=== PATIENT | female | born 1940 | race Caucasian/White ===

== ENCOUNTER 2018-05-23 09:33 | Emergency (ER) | payer OTHER ==
--- OUTSIDE RECORDS SUMMARY | 2018-05-23 09:35 | XMS REPORT ---
:1940 Author Organization [facility] Address [address] [place] [address] Dr. Roblero. [address] [place] [id number] Care Team Providers Name Role Phone Unavailable Unavailable Unavailable Problems This patient has no known problems. Allergies, Adverse Reactions, Alerts This patient has no known allergies or adverse reactions. Medications This patient has no known medications.
[2018-05-23 10:06] LABS: Absolute Lymphocytes (CBC) 1.7 K/uL (0.7-4.9); Absolute Monocytes 0.4 K/uL (0.1-1.3); Absolute Neutrophil 2.7 K/uL (1.8-8.0); Basophils % 1.3 % (0-1.3); Hematocrit 41.6 % (36.0-45.0); Lymphocytes % 33.6 % (15.3-44.8); MPV 8.9 fL (7.6-11.3); Monocytes % 7.5 % (3.3-12.3)
[2018-05-23 10:29] LABS: BUN Blood Urea Nitrogen 31 mg/dL (7-18); Bicarbonate 29 mmol/L (21-32); Glucose Level 141 mg/dL (74-106); Magnesium 2.3 mg/dL (1.8-2.4); Potassium 4.1 mmol/L (3.5-5.1); Sodium Level 143 mmol/L (136-145); Troponin (Emerg Dept Use Only) < 0.02 ng/mL (0.0-0.045)
--- NOTE | 2018-05-23 10:42 | ER ---
Nurse's Notes [facility] Name: Ana Paula Nichols Age: 78 yrs Sex: Female : 1940 Arrival Date: 05/23/2018 Time: 09:34 Bed 8 Private MD: Diagnosis: Syncope and collapse-Vasovagal attack Presentation: 05/23 09:34 Presenting complaint: EMS states: NEAR-SYNCOPE WHILE USING THE BATHROOM. Transition of bp care: patient was not received from another setting of care. Onset of symptoms is unknown. Risk Assessment: Do you want to hurt yourself or someone else? Patient reports no desire to harm self or others. Initial Sepsis Screen: Does the patient meet any 2 criteria? No. Patient's initial sepsis screen is negative. Does the patient have a suspected source of infection? No. Patient's initial sepsis screen is negative. Care prior to arrival: IV initiated. 22 GA, in the left forearm. 09:34 Method Of Arrival: EMS: [facility] bp 09:34 Acuity: ANDRY 3 bp Triage Assessment: 09:50 General: Appears in no apparent distress. comfortable, Behavior is calm, cooperative, bp appropriate for age. Pain: Denies pain. Historical: - Allergies: 09:50 Tetanus Vaccines \T\ Toxoid; bp 09:50 Digoxin; bp 09:50 Percodan; bp 09:50 Tape; bp - Home Meds: 09:50 Toprol XL 50 mg Oral Tb24 1 tab once daily [Active]; Lasix 40 mg Oral tab 1 tab 2 times bp per day [Active]; Protonix 40 mg Oral grps 1 packet once daily [Active]; gabapentin 300 mg oral cap 2 caps 3 times per day [Active]; levothyroxine 88 mcg tab 1 tab once daily [Active]; allopurinol 300 mg Oral tab 1 tab once daily [Active]; simvastatin 20 mg Oral tab 1 tab once daily [Active]; hydrocodone-acetaminophen 7.5-325 mg Oral tab [Active]; - PMHx: 09:50 High Cholesterol; Hypertension; Thyroid problem; COPD; CHF; bp - Immunization history:: Adult Immunizations up to date. - Social history:: Smoking status: Patient/guardian denies using tobacco. - Ebola Screening: : Patient negative for fever greater than or equal to 101.5 degrees Fahrenheit, and additional compatible Ebola Virus Disease symptoms Patient denies exposure to infectious person Patient denies travel to an Ebola-affected area in the 21 days before illness onset No symptoms or risks identified at this time. Screenin:35 Abuse screen: Denies threats or abuse. Denies injuries from another. Nutritional bp screening: No deficits noted. Tuberculosis screening: No symptoms or risk factors identified. Fall Risk None identified. Assessment: 09:35 General: Appears in no apparent distress. comfortable, Behavior is cooperative, bp appropriate for age, anxious. Pain: Denies pain. Neuro: Level of Consciousness is awake, alert, obeys commands, Oriented to person, place, time, situation, Appropriate for age Reports a syncopal episode. Cardiovascular: Rhythm is sinus rhythm. Respiratory: Airway is patent Respiratory effort is even, unlabored, Respiratory pattern is regular, symmetrical. GI: No signs and/or symptoms were reported involving the gastrointestinal system. : No signs and/or symptoms were reported regarding the genitourinary system. EENT: No deficits noted. Derm: No deficits noted. Musculoskeletal: Circulation, motion, and sensation intact. Range of motion: intact in all extremities. 10:39 Reassessment: ALL CURRENT ORDERS COMPLETED, VS STABLE, IVF INFUSING. bp 10:57 Reassessment: D/C ON HOLD FOR IVF COMPLETION. bp 11:36 Reassessment: PT D/C HOME VIA W/C WITH FAMILY, DX WITH VASO-VAGAL SYNCOPE. bp Vital Signs: 09:35 BP 129 / 64; Pulse 67; Resp 18; Temp 98.5; Pulse Ox 100% on R/A; Weight 71.67 kg; bp Height 5 ft. (152.40 cm); 10:22 BP 126 / 64 Supine; Pulse 64; jb1 10:22 BP 117 / 63 Sitting; Pulse 70; jb1 10:22 BP 123 / 67 Standing; Pulse 71; jb1 10:30 BP 113 / 54; Pulse 62; Resp 16; Pulse Ox 100% ; bp 11:30 BP 126 / 47; Pulse 57; Resp 16; Pulse Ox 100% ; bp 09:35 Body Mass Index 30.86 (71.67 kg, 152.40 cm) bp ED Course: 09:34 Patient arrived in ED. bp 09:35 Arm band placed on. bp 09:35 Patient has correct armband on for positive identification. Bed in low position. Call bp light in reach. Side rails up X2. Adult w/ patient. 09:39 Triage completed. bp 09:40 Carlos Camara PA is PHCP. jr8 09:40 Eyal Moody MD is Attending Physician. jr8 09:45 Initial lab(s) drawn, by me, sent to lab. jb1 10:22 EKG done, by ED staff, reviewed by Carlos MONACO. jb1 10:38 Yandel Ruby, RN is Primary Nurse. bp 11:37 No provider procedures requiring assistance completed. IV discontinued, intact, bp bleeding controlled, No redness/swelling at site. Pressure dressing applied. Administered Medications: 10:05 Drug: NS 0.9% 500 ml Route: IV; Rate: bolus; Site: left forearm; bp 11:10 Follow up: IV Status: Completed infusion bp Outcome: 10:42 Discharge ordered by . jr8 11:37 Discharged to home via wheelchair, with family. bp 11:37 Condition: stable 11:37 Discharge instructions given to patient, family, Instructed on discharge instructions, follow up and referral plans. Demonstrated understanding of instructions, follow-up care, medications. 11:39 Patient left the ED. bp Signatures: Jose Antonio Ivy jb1 Carlos Camara PA PA jr8 Yandel Ruby, RN RN bp Corrections: (The following items were deleted from the chart) 10:21 10:21 Initial lab(s) drawn, by me, jb1 jb1
--- NOTE | 2018-05-23 10:42 | EDPHYS ---
Physician Documentation [facility] Name: Ana Paula Nichols Age: 78 yrs Sex: Female : 1940 Arrival Date: 05/23/2018 Time: 09:34 Bed 8 Private MD: ED Physician Eyal Moody HPI: 05/23 10:23 This 78 yrs old Female presents to ER via EMS with complaints of Near Syncope.jr8 10:23 Onset: The symptoms/episode began/occurred acutely, today. Duration: This was a single jr8 episode. Context: occurred at home. Associated injury: The patient did not suffer any apparent associated injury. Associated signs and symptoms: Pertinent positives: dizziness, weakness, pallor. Current symptoms: Currently, the patient is not experiencing any symptoms, the patient feels back to baseline, no decreased level of consciousness, no confusion, no dysphasia, no headache, no paralysis, no visual changes. The patient has not experienced similar symptoms in the past. Patient stated that she had to use the restroom. Stated that she had to strain hard to initiate bowel movement. Right after relieving bowels started to feel very weak, light headed, nauseated, and sweaty. [place] as if she was going to pass out. EMS was called and found patient to be bradycardic and hypotensive on seen. Fluids given. Now upon arrival feels back to normal. Asymptomatic at this time . Historical: - Allergies: 09:50 Tetanus Vaccines \T\ Toxoid; bp 09:50 Digoxin; bp 09:50 Percodan; bp 09:50 Tape; bp - Home Meds: 09:50 Toprol XL 50 mg Oral Tb24 1 tab once daily [Active]; Lasix 40 mg Oral tab 1 tab 2 times bp per day [Active]; Protonix 40 mg Oral grps 1 packet once daily [Active]; gabapentin 300 mg oral cap 2 caps 3 times per day [Active]; levothyroxine 88 mcg tab 1 tab once daily [Active]; allopurinol 300 mg Oral tab 1 tab once daily [Active]; simvastatin 20 mg Oral tab 1 tab once daily [Active]; hydrocodone-acetaminophen 7.5-325 mg Oral tab [Active]; - PMHx: 09:50 High Cholesterol; Hypertension; Thyroid problem; COPD; CHF; bp - Immunization history:: Adult Immunizations up to date. - Social history:: Smoking status: Patient/guardian denies using tobacco. - Ebola Screening: : Patient negative for fever greater than or equal to 101.5 degrees Fahrenheit, and additional compatible Ebola Virus Disease symptoms Patient denies exposure to infectious person Patient denies travel to an Ebola-affected area in the 21 days before illness onset No symptoms or risks identified at this time. ROS: 10:23 Eyes: Negative for injury, pain, redness, and discharge, ENT: Negative for injury, jr8 pain, and discharge, Neck: Negative for injury, pain, and swelling, Cardiovascular: Negative for chest pain, palpitations, and edema, Respiratory: Negative for shortness of breath, cough, wheezing, and pleuritic chest pain, Back: Negative for injury and pain, MS/Extremity: Negative for injury and deformity. 10:23 Abdomen/GI: Positive for nausea, Negative for abdominal pain, vomiting, diarrhea, abdominal distension, hematemesis, black/tarry stool, rectal pain, rectal bleeding, bowel incontinence, flatulence. 10:23 Skin: Positive for diaphoresis. 10:23 Neuro: Positive for dizziness, near syncope, weakness, Negative for altered mental status, loss of consciousness, seizure activity, syncope. Exam: 10:23 Eyes: Pupils equal round and reactive to light, extra-ocular motions intact. Lids and jr8 lashes normal. Conjunctiva and sclera are non-icteric and not injected. Cornea within normal limits. Periorbital areas with no swelling, redness, or edema. ENT: Nares patent. No nasal discharge, no septal abnormalities noted. Tympanic membranes are normal and external auditory canals are clear. Oropharynx with no redness, swelling, or masses, exudates, or evidence of obstruction, uvula midline. Mucous membranes moist. Neck: Trachea midline, no thyromegaly or masses palpated, and no cervical lymphadenopathy. Supple, full range of motion without nuchal rigidity, or vertebral point tenderness. No Meningismus. Cardiovascular: Regular rate and rhythm with a normal S1 and S2. No gallops, murmurs, or rubs. Normal PMI, no JVD. No pulse deficits. Respiratory: Lungs have equal breath sounds bilaterally, clear to auscultation and percussion. No rales, rhonchi or wheezes noted. No increased work of breathing, no retractions or nasal flaring. Abdomen/GI: Soft, non-tender, with normal bowel sounds. No distension or tympany. No guarding or rebound. No evidence of tenderness throughout. Back: No spinal tenderness. No costovertebral tenderness. Full range of motion. Skin: Warm, dry with normal turgor. Normal color with no rashes, no lesions, and no evidence of cellulitis. MS/ Extremity: Pulses equal, no cyanosis. Neurovascular intact. Full, normal range of motion. Neuro: Awake and alert, GCS 15, oriented to person, place, time, and situation. Cranial nerves II-XII grossly intact. Motor strength 5/5 in all extremities. Sensory grossly intact. Cerebellar exam normal. Normal gait. Vital Signs: 09:35 BP 129 / 64; Pulse 67; Resp 18; Temp 98.5; Pulse Ox 100% on R/A; Weight 71.67 kg; bp Height 5 ft. (152.40 cm); 10:22 BP 126 / 64 Supine; Pulse 64; jb1 10:22 BP 117 / 63 Sitting; Pulse 70; jb1 10:22 BP 123 / 67 Standing; Pulse 71; jb1 10:30 BP 113 / 54; Pulse 62; Resp 16; Pulse Ox 100% ; bp 11:30 BP 126 / 47; Pulse 57; Resp 16; Pulse Ox 100% ; bp 09:35 Body Mass Index 30.86 (71.67 kg, 152.40 cm) bp MDM: 09:40 Patient medically screened. jr8 10:40 Differential Diagnosis: cardiac arrhythmia, cerebrovascular accident, drug effect, GI jr8 bleed, idiopathic syncope, seizure, transient ischemic attack, vasovagal episode. Data reviewed: vital signs, nurses notes, lab test result(s), EKG, and as a result, I will discharge patient. Data interpreted: Pulse oximetry: on room air is 100 %. Interpretation: normal. Counseling: I had a detailed discussion with the patient and/or guardian regarding: the historical points, exam findings, and any diagnostic results supporting the discharge/admit diagnosis, lab results, the need for outpatient follow up, a family practitioner, to return to the emergency department if symptoms worsen or persist or if there are any questions or concerns that arise at home. 05/23 09:44 Order name: Basic Metabolic Panel; Complete Time: 10:40 jr8 05/23 09:44 Order name: CBC with Diff; Complete Time: 10:16 05/23 09:44 Order name: Magnesium; Complete Time: 10:40 05/23 09:44 Order name: Troponin (emerg Dept Use Only); Complete Time: 10:40 05/23 10:16 Order name: Urine Dipstick--Ancillary (enter results); Complete Time: 11:13 ag 05/23 09:44 Order name: EKG; Complete Time: 09:44 05/23 09:44 Order name: Cardiac monitoring; Complete Time: 10:03 05/23 09:44 Order name: EKG - Nurse/Tech; Complete Time: 10:03 05/23 09:44 Order name: IV Saline Lock; Complete Time: 10:03 05/23 09:44 Order name: Labs collected and sent; Complete Time: 10:03 05/23 09:44 Order name: O2 Per Protocol; Complete Time: 10:03 05/23 09:44 Order name: O2 Sat Monitoring; Complete Time: 10:03 05/23 09:44 Order name: Orthostatics; Complete Time: 10:20 jr Administered Medications: 10:05 Drug: NS 0.9% 500 ml Route: IV; Rate: bolus; Site: left forearm; bp 11:10 Follow up: IV Status: Completed infusion bp Disposition: 05/24 07:04 Co-signature as Attending Physician, Eyal Moody MD I agree with the assessment and hilary plan of care. Disposition: 05/23/18 10:42 Discharged to Home. Impression: Syncope and collapse - Vasovagal attack. - Condition is Stable. - Discharge Instructions: Near-Syncope, Syncope, Vasovagal Syncope, Adult. - Medication Reconciliation Form, Thank You Letter, Antibiotic Education, Prescription Opioid Use form. - Follow up: Private Physician; When: 2 - 3 days; Reason: Recheck today's complaints, Continuance of care, Re-evaluation by your physician. - Problem is new. - Symptoms are resolved. Signatures: Dispatcher [employer] Eyal Cook MD MD cha Roszak, Josh, PA PA jr8 Yandel Ruby RN RN bp Corrections: (The following items were deleted from the chart) 05/23 11:39 10:42 05/23/2018 10:42 Discharged to Home. Impression: Syncope and collapse - Vasovagal bp attack. Condition is Stable. Forms are Medication Reconciliation Form, Thank You Letter, Antibiotic Education, Prescription Opioid Use. Follow up: Private Physician; When: 2 - 3 days; Reason: Recheck today's complaints, Continuance of care, Re-evaluation by your physician. Problem is new. Symptoms are resolved. jr8
[2018-05-23 11:11] LABS: Urine Blood NEGATIVE (NEG); Urine Glucose NEGATIVE (NEG); Urine Protein NEGATIVE (NEG)
[2018-05-23 11:43] VITALS: TEMP 98.5; O2SAT 100
[2018-05-23 11:47] VITALS: BP 126/47
--- NOTE | 2018-05-24 06:26 | EKG ---
Test Date: 2018-05-23 Test Time: 10:01:37 Sliver Lap Tender: JESICA MEASUREMENT RESULTS: Intervals: Rate: 56 NE: 224 QRSD: 88 QT: 426 QTc: 411 [place]: P: 33 NE: 224 QRS: 33 T: 59 INTERPRETIVE STATEMENTS: Sinus bradycardia with 1st degree AV block Otherwise normal ECG Compared to ECG 12/16/2014 06:07:12 First degree AV block now present Sinus rhythm no longer present Sinus arrhythmia no longer present Electronically Signed On 05-24-18 06:19:41 LANDSCAPE DRAFTER by Jesus Dee
== END 2018-05-23 11:39 | disposition home or self-care (01) ==
LOC: ER 09:33
DX: R55 Syncope and collapse (principal); I44.0 Atrioventricular block, first degree; E78.00 Pure hypercholesterolemia, unspecified; E03.9 Hypothyroidism, unspecified; J44.9 Chronic obstructive pulmonary disease, unspecified; I11.0 Hypertensive heart disease with heart failure; I50.9 Heart failure, unspecified; Z79.899 Other long term (current) drug therapy
CPT/HCPCS: 36415; 80048; 81003; 83735; 84484; 85025; 93005; 96360; 99284

== ENCOUNTER 2023-06-15 18:48 | Inpatient (IN) | payer OTHER ==
--- OUTSIDE RECORDS SUMMARY | 2023-06-15 19:01 | XMS REPORT | Continuity of Care Document ---
Author Name Unknown Address [address] [facility] [address] [place] [address] [facility] thconnect Address [address] [facility] [address] [place] [address] Care Team Providers Care Director Of Strategic Sales Name Role Phone GARGLENARD Primary Care Physician Unavail able Radiology Attending Clinician Unavailable RADIOLOGY Attending Clinician Unavailable Doctor Unassigned, [place] Attending Clinician U navailable ANKUSH Attending Clinician Unavailab le Rikki Steele Attending Clinician [phone] JOCELINE EDWARDS Admitting Clinician Unavailable GENNARO BIRD Admitting Clinician Unavail able ANKUSH Admitting Clinician Unavailab le Payers Payer Name Policy Type Policy Number Effective Date Expirati on Date Source [employer]ET[employer] INDEMNITY [id number] 2000 00:00:00 [place]: [id number] 1982 00:00:00 [employer]ET[employer] [id number] 1091-01-01 00:00:00 Problems Condition Name Condition Details Condition Category Status Onset Date Resolution Date Last Treatment Date Treating Clinician Comments Source Acquired hypothyroi dism Acquired Hypothyroi dism Problem Active 11-09 00:00: 00 [facility] Mixed hyperlipid emia Mixed Hyperlipid emia Problem Active 11-09 00:00: 00 [facility] Chronic gouty arthritis Chronic Gouty Arthritis Problem Active 11-09 00:00: 00 [facility] Seizure disorder Seizure Disorder Problem Active 11-09 00:00: 00 [facility] Allergic rhinitis Allergic Rhinitis Problem Active 11-09 00:00: 00 [facility] Gastroesop hageal reflux disease without esophagiti s Gastroesop hageal Reflux Disease without Esophagiti s Problem Active 11-09 00:00: 00 [facility] Postmenopa usal osteoporos is Postmenopa usal Osteoporos is Problem Active 11-09 00:00: 00 [facility] Vertigo Vertigo Problem Active 10-13 00:00: 00 [facility] Familial combined hyperlipid emia Familial Combined Hyperlipid emia Problem Active [facility] Gouty arthropath y Gouty Arthropath y Problem Active [facility] 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 Problem Active [facility] Legal blindness [facility] Legal Blindness [facility] Problem Active [facility] Bradycardi a Bradycardi a Problem Active [facility] Seasonal allergic rhinitis Seasonal Allergic Rhinitis Problem Active [facility] Chronic obstructiv e lung disease Chronic Obstructiv e Lung Disease Problem Active [facility] 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 Problem Active [facility] 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 Problem Active [facility] Neurogenic bladder Neurogenic Bladder Problem Active [facility] Onychia of finger Onychia of Finger Problem Active [facility] Onychia of toe Onychia of Toe Problem Active [facility] Osteoarthr itis of multiple joints Osteoarthr itis of Multiple Joints Problem Active [facility] Prolapsed lumbar interverte bral disc Prolapsed Lumbar Interverte bral Disc Problem Active [facility] Tachycardi a Tachycardi a Problem Active [facility] Strain of back muscle Strain of Back Muscle Problem Active [facility] History of gastrointe stinal disease History of Gastrointe stinal Disease Problem Active [facility] Pain of right shoulder joint Pain of Right Shoulder Joint Problem Active [facility] Screening status Screening Status Problem Active [facility] Allergies, Adverse Reactions, Alerts Allergy Name Allergy Type Status Severity Reaction(s) Onset Date Inactive Date Treating Clinician Comments Source DIGITALI S LEAF DRUG INGREDI Active Unknown-Cmnt 2017-05 00:00: 00 [facility] LATEX DRUG INGREDI Active Rash 2017-05 00:00: 00 [facility] OXYCODON E DRUG INGREDI Active Unknown-Cmnt 2017-05 00:00: 00 [facility] OXYCODON E HCL DRUG INGREDI Active Unknown-Cmnt 2017-05 00:00: 00 [facility] OXYCODON E TEREPHTH ALATE DRUG INGREDI Active Unknown-Cmnt 2017-05 00:00: 00 [facility] TETANUS TOXOID ADSORBED DRUG Active Unknown-Cmnt 2017-05 00:00: 00 [facility] TETANUS TOXOID FLUID DRUG Active Unknown-Cmnt 2017-05 00:00: 00 [facility] Digitali s [place] Propensi ty to adverse reaction s Active Unknown - See comments 2017-05 00:00: 00 [facility] Latex Propensi ty to adverse reaction s Active Rash 2017-05 00:00: 00 [facility] Oxycodon e Propensi ty to adverse reaction s Active Unknown - See comments 2017-05 00:00: 00 [facility] Oxycodon e Hcl Propensi ty to adverse reaction s Active Unknown - See comments 2017-05 00:00: 00 [facility] Oxycodon e Terephth alate Propensi ty to adverse reaction s Active Unknown - See comments 2017-05 00:00: 00 [facility] Tetanus Toxoid Adsorbed Propensi ty to adverse reaction s Active Unknown - See comments 2017-05 00:00: 00 [facility] Tetanus Toxoid Fluid Propensi ty to adverse reaction s Active Unknown - See comments 2017-05 00:00: 00 [facility] Aspirin Allergy to substanc e Active [facility] Digitali s [place] Allergy to substanc e Active [facility] Oxycodon e Allergy to substanc e Active [facility] Tetanus Toxoid, Adsorbed Allergy to substanc e Active [facility] Social History Social Habit Start Date Stop Date Quantity Comments Source Exposure to SARS-CoV-2 (event) 2022-01-12 00:00:00 2022-01-22 11:51:00 Not sure [facility] Alcohol intake 2018-04-16 00:00:00 2018-04-16 00:00:00 Current non-drinker of alcohol (finding) [facility] Sex Assigned At 1940 00:00:00 1940 00:00:00 [facility] Smoking Status Start Date Stop Date Source Never Smoker [facility] Medications Ordered Medication Name Filled Medication Name Start Date Stop Date Current Medication? Ordering Clinician Indication Dosage Frequency Signature (SIG) Comments Components Source ipratropium 0.02 % nebulizer solution 2017-05 20:51: 32 Yes .5mg Inhale 0.5 mg. [facility] % cream 2017-05 20:51: 32 Yes Apply to area(s) daily. [facility] ipratropium 0.02 % nebulizer solution 2017-05 20:51: 32 Yes .5mg Inhale 0.5 mg. [facility] ketoconazol e 2 % cream 2017-05 20:51: 32 Yes Apply to area(s) daily. [facility] ipratropium 0.02 % nebulizer solution 2017-05 20:51: 32 Yes .5mg Inhale 0.5 mg. [facility] ketoconazol e 2 % cream 2017-05 20:51: 32 Yes Apply to area(s) daily. [facility] ipratropium 0.02 % nebulizer solution 2017-05 20:51: 32 Yes .5mg Inhale 0.5 mg. [facility] ketoconazol e 2 % cream 2017-05 20:51: 32 Yes Apply to area(s) daily. [facility] fluticasone 50 mcg/actuati on nasal spray 2017-05 20:51: 31 Yes Use in each nostril daily. [facility] budesonide 0.5 mg/2 mL nebulizer solution 2017-05 20:51: 31 Yes .5mg Inhale 0.5 mg daily. [facility] albuterol 2.5 mg /3 mL (0.083 %) nebulizer solution 2017-05 20:51: 31 Yes 2.5mg Inhale 2.5 mg every 4 (four) hours as needed for Wheezing or Shortness of Breath. [facility] fluticasone 50 mcg/actuati on nasal spray 2017-05 20:51: 31 Yes Use in each nostril daily. [facility] budesonide 0.5 mg/2 mL nebulizer solution 2017-05 20:51: 31 Yes .5mg Inhale 0.5 mg daily. [facility] albuterol 2.5 mg /3 mL (0.083 %) nebulizer solution 2017-05 20:51: 31 Yes 2.5mg Inhale 2.5 mg every 4 (four) hours as needed for Wheezing or Shortness of Breath. [facility] fluticasone 50 mcg/actuati on nasal spray 2017-05 20:51: 31 Yes Use in each nostril daily. [facility] budesonide 0.5 mg/2 mL nebulizer solution 2017-05 20:51: 31 Yes .5mg Inhale 0.5 mg daily. [facility] albuterol 2.5 mg /3 mL (0.083 %) nebulizer solution 2017-05 20:51: 31 Yes 2.5mg Inhale 2.5 mg every 4 (four) hours as needed for Wheezing or Shortness of Breath. [facility] fluticasone 50 mcg/actuati on nasal spray 2017-05 20:51: 31 Yes Use in each nostril daily. [facility] budesonide 0.5 mg/2 mL nebulizer solution 2017-05 20:51: 31 Yes .5mg Inhale 0.5 mg daily. [facility] albuterol 2.5 mg /3 mL (0.083 %) nebulizer solution 2017-05 20:51: 31 Yes 2.5mg Inhale 2.5 mg every 4 (four) hours as needed for Wheezing or Shortness of Breath. [facility] ubidecareno ne (COQ-10 ORAL) 2017-05 20:48: 44 Yes Take by mouth. [facility] aspirin (ADULT LOW DOSE ASPIRIN) 81 mg EC tablet 2017-05 20:48: 44 Yes 162mg Take 162 mg by mouth daily. [facility] albuterol sulfate 90 mcg/actuati on AePB 2017-05 20:48: 44 Yes Inhale. [facility] ubidecareno ne (COQ-10 ORAL) 2017-05 20:48: 44 Yes Take by mouth. [facility] aspirin (ADULT LOW DOSE ASPIRIN) 81 mg EC tablet 2017-05 20:48: 44 Yes 162mg Take 162 mg by mouth daily. [facility] albuterol sulfate 90 mcg/actuati on AePB 2017-05 20:48: 44 Yes Inhale. [facility] ubidecareno ne (COQ-10 ORAL) 2017-05 20:48: 44 Yes Take by mouth. [facility] aspirin (ADULT LOW DOSE ASPIRIN) 81 mg EC tablet 2017-05 20:48: 44 Yes 162mg Take 162 mg by mouth daily. [facility] albuterol sulfate 90 mcg/actuati on AePB 2017-05 20:48: 44 Yes Inhale. [facility] ubidecareno ne (COQ-10 ORAL) 2017-05 20:48: 44 Yes Take by mouth. [facility] aspirin (ADULT LOW DOSE ASPIRIN) 81 mg EC tablet 2017-05 20:48: 44 Yes 162mg Take 162 mg by mouth daily. [facility] albuterol sulfate 90 mcg/actuati on AePB 2017-05 20:48: 44 Yes Inhale. [facility] ipratropium 0.02 % nebulizer solution 2017-05 14:51: 32 Yes .5mg Inhale 0.5 mg. [facility] ketoconazol e 2 % cream 2017-05 14:51: 32 Yes Apply to area(s) daily. [facility] ipratropium 0.02 % nebulizer solution 2017-05 14:51: 32 Yes .5mg Inhale 0.5 mg. [facility] ketoconazol e 2 % cream 2017-05 14:51: 32 Yes Apply to area(s) daily. [facility] ipratropium 0.02 % nebulizer solution 2017-05 14:51: 32 Yes .5mg Inhale 0.5 mg. [facility] ketoconazol e 2 % cream 2017-05 14:51: 32 Yes Apply to area(s) daily. [facility] ipratropium 0.02 % nebulizer solution 2017-05 14:51: 32 Yes .5mg Inhale 0.5 mg. [facility] ketoconazol e 2 % cream 2017-05 14:51: 32 Yes Apply to area(s) daily. [facility] ipratropium 0.02 % nebulizer solution 2017-05 14:51: 32 Yes .5mg Inhale 0.5 mg. [facility] ketoconazol e 2 % cream 2017-05 14:51: 32 Yes Apply to area(s) daily. [facility] ipratropium 0.02 % nebulizer solution 2017-05 14:51: 32 Yes .5mg Inhale 0.5 mg. [facility] ketoconazol e 2 % cream 2017-05 14:51: 32 Yes Apply to area(s) daily. [facility] ipratropium 0.02 % nebulizer solution 2017-05 14:51: 32 Yes .5mg Inhale 0.5 mg. [facility] ketoconazol e 2 % cream 2017-05 14:51: 32 Yes Apply to area(s) daily. [facility] ipratropium 0.02 % nebulizer solution 2017-05 14:51: 32 Yes .5mg Inhale 0.5 mg. [facility] ketoconazol e 2 % cream 2017-05 14:51: 32 Yes Apply to area(s) daily. [facility] fluticasone 50 mcg/actuati on nasal spray 2017-05 14:51: 31 Yes Use in each nostril daily. [facility] budesonide 0.5 mg/2 mL nebulizer solution 2017-05 14:51: 31 Yes .5mg Inhale 0.5 mg daily. [facility] albuterol 2.5 mg /3 mL (0.083 %) nebulizer solution 2017-05 14:51: 31 Yes 2.5mg Inhale 2.5 mg every 4 (four) hours as needed for Wheezing or Shortness of Breath. [facility] fluticasone 50 mcg/actuati on nasal spray 2017-05 14:51: 31 Yes Use in each nostril daily. [facility] budesonide 0.5 mg/2 mL nebulizer solution 2017-05 14:51: 31 Yes .5mg Inhale 0.5 mg daily. [facility] albuterol 2.5 mg /3 mL (0.083 %) nebulizer solution 2017-05 14:51: 31 Yes 2.5mg Inhale 2.5 mg every 4 (four) hours as needed for Wheezing or Shortness of Breath. [facility] fluticasone 50 mcg/actuati on nasal spray 2017-05 14:51: 31 Yes Use in each nostril daily. [facility] budesonide 0.5 mg/2 mL nebulizer solution 2017-05 14:51: 31 Yes .5mg Inhale 0.5 mg daily. [facility] albuterol 2.5 mg /3 mL (0.083 %) nebulizer solution 2017-05 14:51: 31 Yes 2.5mg Inhale 2.5 mg every 4 (four) hours as needed for Wheezing or Shortness of Breath. [facility] fluticasone 50 mcg/actuati on nasal spray 2017-05 14:51: 31 Yes Use in each nostril daily. [facility] budesonide 0.5 mg/2 mL nebulizer solution 2017-05 14:51: 31 Yes .5mg Inhale 0.5 mg daily. [facility] albuterol 2.5 mg /3 mL (0.083 %) nebulizer solution 2017-05 14:51: 31 Yes 2.5mg Inhale 2.5 mg every 4 (four) hours as needed for Wheezing or Shortness of Breath. [facility] fluticasone 50 mcg/actuati on nasal spray 2017-05 14:51: 31 Yes Use in each nostril daily. [facility] budesonide 0.5 mg/2 mL nebulizer solution 2017-05 14:51: 31 Yes .5mg Inhale 0.5 mg daily. [facility] albuterol 2.5 mg /3 mL (0.083 %) nebulizer solution 2017-05 14:51: 31 Yes 2.5mg Inhale 2.5 mg every 4 (four) hours as needed for Wheezing or Shortness of Breath. [facility] fluticasone 50 mcg/actuati on nasal spray 2017-05 14:51: 31 Yes Use in each nostril daily. [facility] budesonide 0.5 mg/2 mL nebulizer solution 2017-05 14:51: 31 Yes .5mg Inhale 0.5 mg daily. [facility] albuterol 2.5 mg /3 mL (0.083 %) nebulizer solution 2017-05 14:51: 31 Yes 2.5mg Inhale 2.5 mg every 4 (four) hours as needed for Wheezing or Shortness of Breath. [facility] fluticasone 50 mcg/actuati on nasal spray 2017-05 14:51: 31 Yes Use in each nostril daily. [facility] budesonide 0.5 mg/2 mL nebulizer solution 2017-05 14:51: 31 Yes .5mg Inhale 0.5 mg daily. [facility] albuterol 2.5 mg /3 mL (0.083 %) nebulizer solution 2017-05 14:51: 31 Yes 2.5mg Inhale 2.5 mg every 4 (four) hours as needed for Wheezing or Shortness of Breath. [facility] fluticasone 50 mcg/actuati on nasal spray 2017-05 14:51: 31 Yes Use in each nostril daily. [facility] budesonide 0.5 mg/2 mL nebulizer solution 2017-05 14:51: 31 Yes .5mg Inhale 0.5 mg daily. [facility] albuterol 2.5 mg /3 mL (0.083 %) nebulizer solution 2017-05 14:51: 31 Yes 2.5mg Inhale 2.5 mg every 4 (four) hours as needed for Wheezing or Shortness of Breath. [facility] ubidecareno ne (COQ-10 ORAL) 2017-05 14:48: 44 Yes Take by mouth. [facility] aspirin (ADULT LOW DOSE ASPIRIN) 81 mg EC tablet 2017-05 14:48: 44 Yes 162mg Take 162 mg by mouth daily. [facility] albuterol sulfate 90 mcg/actuati on AePB 2017-05 14:48: 44 Yes Inhale. [facility] ubidecareno ne (COQ-10 ORAL) 2017-05 14:48: 44 Yes Take by mouth. [facility] aspirin (ADULT LOW DOSE ASPIRIN) 81 mg EC tablet 2017-05 14:48: 44 Yes 162mg Take 162 mg by mouth daily. [facility] albuterol sulfate 90 mcg/actuati on AePB 2017-05 14:48: 44 Yes Inhale. [facility] ubidecareno ne (COQ-10 ORAL) 2017-05 14:48: 44 Yes Take by mouth. [facility] aspirin (ADULT LOW DOSE ASPIRIN) 81 mg EC tablet 2017-05 14:48: 44 Yes 162mg Take 162 mg by mouth daily. [facility] albuterol sulfate 90 mcg/actuati on AePB 2017-05 14:48: 44 Yes Inhale. [facility] ubidecareno ne (COQ-10 ORAL) 2017-05 14:48: 44 Yes Take by mouth. [facility] aspirin (ADULT LOW DOSE ASPIRIN) 81 mg EC tablet 2017-05 14:48: 44 Yes 162mg Take 162 mg by mouth daily. [facility] albuterol sulfate 90 mcg/actuati on AePB 2017-05 14:48: 44 Yes Inhale. [facility] ubidecareno ne (COQ-10 ORAL) 2017-05 14:48: 44 Yes Take by mouth. [facility] aspirin (ADULT LOW DOSE ASPIRIN) 81 mg EC tablet 2017-05 14:48: 44 Yes 162mg Take 162 mg by mouth daily. [facility] albuterol sulfate 90 mcg/actuati on AePB 2017-05 14:48: 44 Yes Inhale. [facility] ubidecareno ne (COQ-10 ORAL) 2017-05 14:48: 44 Yes Take by mouth. [facility] aspirin (ADULT LOW DOSE ASPIRIN) 81 mg EC tablet 2017-05 14:48: 44 Yes 162mg Take 162 mg by mouth daily. [facility] albuterol sulfate 90 mcg/actuati on AePB 2017-05 14:48: 44 Yes Inhale. [facility] ubidecareno ne (COQ-10 ORAL) 2017-05 14:48: 44 Yes Take by mouth. [facility] aspirin (ADULT LOW DOSE ASPIRIN) 81 mg EC tablet 2017-05 14:48: 44 Yes 162mg Take 162 mg by mouth daily. [facility] albuterol sulfate 90 mcg/actuati on AePB 2017-05 14:48: 44 Yes Inhale. [facility] ubidecareno ne (COQ-10 ORAL) 2017-05 14:48: 44 Yes Take by mouth. [facility] aspirin (ADULT LOW DOSE ASPIRIN) 81 mg EC tablet 2017-05 14:48: 44 Yes 162mg Take 162 mg by mouth daily. [facility] albuterol sulfate 90 mcg/actuati on AePB 2017-05 14:48: 44 Yes Inhale. [facility] levothyroxi ne 88 mcg tablet 2017-05 00:00: 00 Yes [facility] levothyroxi ne 88 mcg tablet 2017-05 00:00: 00 Yes [facility] levothyroxi ne 88 mcg tablet 2017-05 00:00: 00 Yes [facility] levothyroxi ne 88 mcg tablet 2017-05 00:00: 00 Yes [facility] levothyroxi ne 88 mcg tablet 2017-05 00:00: 00 Yes [facility] levothyroxi ne 88 mcg tablet 2017-05 00:00: 00 Yes [facility] levothyroxi ne 88 mcg tablet 2017-05 00:00: 00 Yes [facility] levothyroxi ne 88 mcg tablet 2017-05 00:00: 00 Yes [facility] levothyroxi ne 88 mcg tablet 2017-05 00:00: 00 Yes [facility] levothyroxi ne 88 mcg tablet 2017-05 00:00: 00 Yes [facility] levothyroxi ne 88 mcg tablet 2017-05 00:00: 00 Yes [facility] levothyroxi ne 88 mcg tablet 2017-05 00:00: 00 Yes [facility] allopurinol 300 mg tablet 2017-05 00:00: 00 Yes [facility] allopurinol 300 mg tablet 2017-05 00:00: 00 Yes [facility] furosemide 40 mg tablet 2017-05 00:00: 00 Yes [facility] HYDROcodone -acetaminop hen 7.5-325 mg per tablet 2017-05 00:00: 00 Yes [facility] metoprolol succinate XL 50 mg 24 hr tablet 2017-05 00:00: 00 Yes [facility] pantoprazol e 40 mg EC tablet 2017-05 00:00: 00 Yes [facility] KCL 20 mEq tablet 2017-05 00:00: 00 Yes [facility] simvastatin 20 mg tablet 2017-05 00:00: 00 Yes [facility] furosemide 40 mg tablet 2017-05 00:00: 00 Yes [facility] allopurinol 300 mg tablet 2017-05 00:00: 00 Yes [facility] furosemide 40 mg tablet 2017-05 00:00: 00 Yes [facility] HYDROcodone -acetaminop hen 7.5-325 mg per tablet 2017-05 00:00: 00 Yes [facility] metoprolol succinate XL 50 mg 24 hr tablet 2017-05 00:00: 00 Yes [facility] HYDROcodone -acetaminop hen 7.5-325 mg per tablet 2017-05 00:00: 00 Yes [facility] pantoprazol e 40 mg EC tablet 2017-05 00:00: 00 Yes [facility] KCL 20 mEq tablet 2017-05 00:00: 00 Yes [facility] simvastatin 20 mg tablet 2017-05 00:00: 00 Yes [facility] allopurinol 300 mg tablet 2017-05 00:00: 00 Yes [facility] metoprolol succinate XL 50 mg 24 hr tablet 2017-05 00:00: 00 Yes [facility] furosemide 40 mg tablet 2017-05 00:00: 00 Yes [facility] HYDROcodone -acetaminop hen 7.5-325 mg per tablet 2017-05 00:00: 00 Yes [facility] metoprolol succinate XL 50 mg 24 hr tablet 2017-05 00:00: 00 Yes [facility] pantoprazol e 40 mg EC tablet 2017-05 00:00: 00 Yes [facility] KCL 20 mEq tablet 2017-05 00:00: 00 Yes [facility] [facility] simvastatin 20 mg tablet 2017-05 00:00: 00 Yes [facility] pantoprazol e 40 mg EC tablet 2017-05 00:00: 00 Yes [facility] KCL 20 mEq tablet 2017-05 00:00: 00 Yes [facility] allopurinol 300 mg tablet 2017-05 00:00: 00 Yes [facility] furosemide 40 mg tablet 2017-05 00:00: 00 Yes [facility] HYDROcodone -acetaminop hen 7.5-325 mg per tablet 2017-05 00:00: 00 Yes [facility] metoprolol succinate XL 50 mg 24 hr tablet 2017-05 00:00: 00 Yes [facility] pantoprazol e 40 mg EC tablet 2017-05 00:00: 00 Yes [facility] KCL 20 mEq tablet 2017-05 00:00: 00 Yes [facility] simvastatin 20 mg tablet 2017-05 00:00: 00 Yes [facility] simvastatin 20 mg tablet 2017-05 00:00: 00 Yes [facility] allopurinol 300 mg tablet 2017-05 00:00: 00 Yes [facility] furosemide 40 mg tablet 2017-05 00:00: 00 Yes [facility] HYDROcodone -acetaminop hen 7.5-325 mg per tablet 2017-05 00:00: 00 Yes [facility] metoprolol succinate XL 50 mg 24 hr tablet 2017-05 00:00: 00 Yes [facility] pantoprazol e 40 mg EC tablet 2017-05 00:00: 00 Yes [facility] KCL 20 mEq tablet 2017-05 00:00: 00 Yes [facility] simvastatin 20 mg tablet 2017-05 00:00: 00 Yes [facility] allopurinol 300 mg tablet 2017-05 00:00: 00 Yes [facility] furosemide 40 mg tablet 2017-05 00:00: 00 Yes [facility] HYDROcodone -acetaminop hen 7.5-325 mg per tablet 2017-05 00:00: 00 Yes [facility] metoprolol succinate XL 50 mg 24 hr tablet 2017-05 00:00: 00 Yes [facility] pantoprazol e 40 mg EC tablet 2017-05 00:00: 00 Yes [facility] KCL 20 mEq tablet 2017-05 00:00: 00 Yes [facility] simvastatin 20 mg tablet 2017-05 00:00: 00 Yes [facility] allopurinol 300 mg tablet 2017-05 00:00: 00 Yes [facility] furosemide 40 mg tablet 2017-05 00:00: 00 Yes [facility] HYDROcodone -acetaminop hen 7.5-325 mg per tablet 2017-05 00:00: 00 Yes [facility] metoprolol succinate XL 50 mg 24 hr tablet 2017-05 00:00: 00 Yes [facility] pantoprazol e 40 mg EC tablet 2017-05 00:00: 00 Yes [facility] KCL 20 mEq tablet 2017-05 00:00: 00 Yes [facility] simvastatin 20 mg tablet 2017-05 00:00: 00 Yes [facility] allopurinol 300 mg tablet 2017-05 00:00: 00 Yes [facility] furosemide 40 mg tablet 2017-05 00:00: 00 Yes [facility] HYDROcodone -acetaminop hen 7.5-325 mg per tablet 2017-05 00:00: 00 Yes [facility] metoprolol succinate XL 50 mg 24 hr tablet 2017-05 00:00: 00 Yes [facility] pantoprazol e 40 mg EC tablet 2017-05 00:00: 00 Yes [facility] KCL 20 mEq tablet 2017-05 00:00: 00 Yes [facility] simvastatin 20 mg tablet 2017-05 00:00: 00 Yes [facility] allopurinol 300 mg tablet 2017-05 00:00: 00 Yes [facility] furosemide 40 mg tablet 2017-05 00:00: 00 Yes [facility] HYDROcodone -acetaminop hen 7.5-325 mg per tablet 2017-05 00:00: 00 Yes [facility] metoprolol succinate XL 50 mg 24 hr tablet 2017-05 00:00: 00 Yes [facility] pantoprazol e 40 mg EC tablet 2017-05 00:00: 00 Yes [facility] KCL 20 mEq tablet 2017-05 00:00: 00 Yes [facility] simvastatin 20 mg tablet 2017-05 00:00: 00 Yes [facility] allopurinol 300 mg tablet 2017-05 00:00: 00 Yes [facility] furosemide 40 mg tablet 2017-05 00:00: 00 Yes [facility] HYDROcodone -acetaminop hen 7.5-325 mg per tablet 2017-05 00:00: 00 Yes [facility] metoprolol succinate XL 50 mg 24 hr tablet 2017-05 00:00: 00 Yes [facility] pantoprazol e 40 mg EC tablet 2017-05 00:00: 00 Yes [facility] KCL 20 mEq tablet 2017-05 00:00: 00 Yes [facility] simvastatin 20 mg tablet 2017-05 00:00: 00 Yes [facility] allopurinol 300 mg tablet 2017-05 00:00: 00 Yes [facility] furosemide 40 mg tablet 2017-05 00:00: 00 Yes [facility] HYDROcodone -acetaminop hen 7.5-325 mg per tablet 2017-05 00:00: 00 Yes [facility] metoprolol succinate XL 50 mg 24 hr tablet 2017-05 00:00: 00 Yes [facility] pantoprazol e 40 mg EC tablet 2017-05 00:00: 00 Yes [facility] KCL 20 mEq tablet 2017-05 00:00: 00 Yes [facility] simvastatin 20 mg tablet 2017-05 00:00: 00 Yes [facility] gabapentin 600 mg tablet 02-03 00:00: 00 Yes [facility] gabapentin 600 mg tablet 02-03 00:00: 00 Yes [facility] gabapentin 600 mg tablet 02-03 00:00: 00 Yes [facility] gabapentin 600 mg tablet 02-03 00:00: 00 Yes [facility] gabapentin 600 mg tablet 02-03 00:00: 00 Yes [facility] gabapentin 600 mg tablet 02-03 00:00: 00 Yes [facility] gabapentin 600 mg tablet 02-03 00:00: 00 Yes [facility] gabapentin 600 mg tablet 02-03 00:00: 00 Yes [facility] gabapentin 600 mg tablet 02-03 00:00: 00 Yes [facility] gabapentin 600 mg tablet 02-03 00:00: 00 Yes [facility] gabapentin 600 mg tablet 02-03 00:00: 00 Yes [facility] gabapentin 600 mg tablet 02-03 00:00: 00 Yes [facility] albuterol sulfate 2.5 mg/3 mL (0.083 %) solution for nebulizatio n INHALE ONE VIAL VIA NEBULIZER FOUR TIMES DAILY DIRECTED albuterol sulfate 2.5 mg/3 mL (0.083 %) solution for nebulizatio n INHALE ONE VIAL VIA NEBULIZER FOUR TIMES DAILY DIRECTED No albuterol sulfate 2.5 mg/3 mL (0.083 %) solution for nebulizati on INHALE ONE VIAL VIA NEBULIZER FOUR TIMES DAILY DIRECTED [facility] allopurinol 300 mg tablet TAKE 1 TABLET BY MOUTH EVERY DAY allopurinol 300 mg tablet TAKE 1 TABLET BY MOUTH EVERY DAY No allopurino l 300 mg tablet TAKE 1 TABLET BY MOUTH EVERY DAY [facility] Aspir-81 mg tablet,joseph yed release Take 2 tablets by oral route. Aspir-81 mg tablet,joseph yed release Take 2 tablets by oral route. No 2 Aspir-81 mg tablet,del ayed release Take 2 tablets by oral route. [facility] budesonide 0.5 mg/2 mL suspension for nebulizatio n INHALE ONE VIAL VIA NEBULIZER TWICE DAILY budesonide 0.5 mg/2 mL suspension for nebulizatio n INHALE ONE VIAL VIA NEBULIZER TWICE DAILY No budesonide 0.5 mg/2 mL suspension for nebulizati on INHALE ONE VIAL VIA NEBULIZER TWICE DAILY [facility] butalbital- acetaminoph en-caffeine 50 mg-300 mg-40 mg capsule TAKE 1 CAPSULE BY MOUTH THREE TIMES DAILY butalbital- acetaminoph en-caffeine 50 mg-300 mg-40 mg capsule TAKE 1 CAPSULE BY MOUTH THREE TIMES DAILY No butalbital -acetamino phen-caffe ine 50 mg-300 mg-40 mg capsule TAKE 1 CAPSULE BY MOUTH THREE TIMES DAILY [facility] cefdinir 300 mg capsule Take 1 capsule every 12 hours by oral route. cefdinir 300 mg capsule Take 1 capsule every 12 hours by oral route. No 1capsul e(s) Q12H cefdinir 300 mg capsule Take 1 capsule every 12 hours by oral route. [facility] cetirizine 10 mg tablet Take 1 tablet every day by oral route. cetirizine 10 mg tablet Take 1 tablet every day by oral route. No 1 Q1D cetirizine 10 mg tablet Take 1 tablet every day by oral route. [facility] Co Q-10 10 mg capsule Take by oral route as directed. Co Q-10 10 mg capsule Take by oral route as directed. No Co Q-10 10 mg capsule Take by oral route as directed. [facility] fluticasone propionate 50 mcg/actuati on nasal spray,suspe nsion [place] 2 sprays every day by intranasal route. fluticasone propionate 50 mcg/actuati on nasal spray,suspe nsion [place] 2 sprays every day by intranasal route. No 2spray( s) Q1D fluticason e propionate 50 mcg/actuat ion nasal spray,susp ension [place] 2 sprays every day by intranasal route. [facility] furosemide 40 mg tablet Take 1 tablet every 12 hours by oral route. furosemide 40 mg tablet Take 1 tablet every 12 hours by oral route. No furosemide 40 mg tablet Take 1 tablet every 12 hours by oral route. [facility] gabapentin 600 mg tablet TAKE 1 TABLET BY MOUTH THREE TIMES DAILY FOR 7 DAYS gabapentin 600 mg tablet TAKE 1 TABLET BY MOUTH THREE TIMES DAILY FOR 7 DAYS No gabapentin 600 mg tablet TAKE 1 TABLET BY MOUTH THREE TIMES DAILY FOR 7 DAYS [facility] hydrocodone 7.5 mg-acetamin ophen 325 mg tablet TAKE 1 TABLET BY MOUTH THREE TIMES DAILY NEEDED FOR PAIN hydrocodone 7.5 mg-acetamin ophen 325 mg tablet TAKE 1 TABLET BY MOUTH THREE TIMES DAILY NEEDED FOR PAIN No hydrocodon e 7.5 mg-acetami nophen 325 mg tablet TAKE 1 TABLET BY MOUTH THREE TIMES DAILY NEEDED FOR PAIN [facility] ipratropium bromide 0.02 % solution for inhalation Inhale 2.5 mL every 6 hours by inhalation route. ipratropium bromide 0.02 % solution for inhalation Inhale 2.5 mL every 6 hours by inhalation route. No 2.5mL Q6H ipratropiu m bromide 0.02 % solution for inhalation Inhale 2.5 mL every 6 hours by inhalation route. [facility] ketoconazol e 2 % topical cream APPLY TO AFFECTED AREA(S) OF SKIN TWICE DAILY ketoconazol e 2 % topical cream APPLY TO AFFECTED AREA(S) OF SKIN TWICE DAILY No ketoconazo le 2 % topical cream APPLY TO AFFECTED AREA(S) OF SKIN TWICE DAILY [facility] levothyroxi ne 75 mcg tablet TAKE 1 TABLET BY MOUTH EVERY DAY levothyroxi ne 75 mcg tablet TAKE 1 TABLET BY MOUTH EVERY DAY No levothyrox ine 75 mcg tablet TAKE 1 TABLET BY MOUTH EVERY DAY [facility] meclizine 25 mg tablet TAKE 1 TABLET BY MOUTH THREE TIMES DAILY meclizine 25 mg tablet TAKE 1 TABLET BY MOUTH THREE TIMES DAILY No meclizine 25 mg tablet TAKE 1 TABLET BY MOUTH THREE TIMES DAILY [facility] Medrol ([place]) 4 mg tablets in a dose pack Take 1 dose pk every day by oral route. Medrol ([place]) 4 mg tablets in a dose pack Take 1 dose pk every day by oral route. No 1dose pk(s) Q1D Medrol ([place]) 4 mg tablets in a dose pack Take 1 dose pk every day by oral route. [facility] metoprolol succinate ER 50 mg tablet,exte nded release 24 hr TAKE 1 TABLET BY MOUTH EVERY DAY metoprolol succinate ER 50 mg tablet,exte nded release 24 hr TAKE 1 TABLET BY MOUTH EVERY DAY No metoprolol succinate ER 50 mg tablet,ext ended release 24 hr TAKE 1 TABLET BY MOUTH EVERY DAY [facility] pantoprazol e 40 mg tablet,joseph yed release TAKE 1 TABLET BY MOUTH EVERY DAY pantoprazol e 40 mg tablet,joseph yed release TAKE 1 TABLET BY MOUTH EVERY DAY No pantoprazo le 40 mg tablet,del ayed release TAKE 1 TABLET BY MOUTH EVERY DAY [facility] potassium chloride ER 20 mEq tablet,exte nded release(par t/cryst) TAKE 1 TABLET BY MOUTH EVERY 12 HOURS potassium chloride ER 20 mEq tablet,exte nded release(par t/cryst) TAKE 1 TABLET BY MOUTH EVERY 12 HOURS No potassium chloride ER 20 mEq tablet,ext ended release(pa rt/cryst) TAKE 1 TABLET BY MOUTH EVERY 12 HOURS [facility] simvastatin 20 mg tablet TAKE 1 TABLET BY MOUTH EVERY DAY simvastatin 20 mg tablet TAKE 1 TABLET BY MOUTH EVERY DAY No simvastati n 20 mg tablet TAKE 1 TABLET BY MOUTH EVERY DAY [facility] Vital Signs Vital Name Observation Time Observation Value Comments S ource Height 2021-01-28 00:00:00 63 [in_i[facility] Procedure Date / Time Performed Performing Clinician Source XR CHEST 2 VW 2022-08-11 17:10:07 Gennaro Bird [facility] MR THORACIC SPINE WO CONTRAST 2022-01-22 18:23:26 Requisition, Paper [facility] ASSIGNMENT OF BENEFITS 2022-01-22 16:49:25 Docto r Unassigned, [place] [facility] MR LUMBAR SPINE WO CONTRAST 2021-06-14 20:54:09 Requisition, Paper [facility] MR CERVICAL SPINE WO CONTRAST 2021-06-14 20:52:50 Requisition, Paper [facility] CONSENT/REFUSAL FOR DIAGNOSIS AND TREATMENT 2021-06-14 18:10:15 Doctor Unassigned, [place] [facility] ASSIGNMENT OF BENEFITS 2021-06-14 18:10:02 Docto r Unassigned, [place] [facility] AUTHORIZATION FOR RELEASE OF PHI 2020-01-30 05:01:00 Doctor Unassigned, [place] [facility] MR LUMBAR SPINE WO CONTRAST 2020-01-19 15:43:07 Requisition, Paper [facility] XR HIPS 2 VW BILATERAL 2020-01-19 15:03:15 Isael Dee [facility] ASSIGNMENT OF BENEFITS 2020-01-19 14:36:22 Docto r Unassigned, [place] [facility] Operative Procedure on Knee 2010-05-18 00:00:00 [facility] Total Knee Replacement 2006-05-18 00:00:00 [facility] Carpal Tunnel Surgery 2004-05-18 00:00:00 [facility] Operative Procedure on Knee 2004-05-18 00:00:00 [facility] Neck/chest Surgery Procedure 2004-05-18 00:00:00 [facility] Operation on Bladder [facility] Bilateral Mastectomy [facility] Partial Hysterectomy [facility] Biopsy of Breast [facility] Shoulder Surgery Procedure [facility] Procedure on Gallbladder [facility] Removal [facility] Encounters Start Date/Time End Date/Time Encounter Type Admission Type Attending Clinicians Care Facility Care Department Encounter ID Source 2022-08-11 11:59:15 2022-08-11 23:59:00 Hospital Encounter Radiology [facility] [id number] 350.1.13.10 4.2.7.2.686 [id number] [facility] 2022-08-11 11:59:00 2022-08-11 11:59:00 Hospital Encounter Radiology [facility] 1.2.840.114 350.1.13.10 4.2.7.2.686 [id number] [facility] 2022-08-11 00:00:00 2022-08-11 11:59:00 Outpatient R RADIOLOGY [facility] [id number] [facility] 2022-08-11 00:00:00 2022-08-11 00:00:00 Letter (Out) Doctor Unassigned, [place] [facility] 12.840.114 350.1.13.10 4.2.7.2.686 [id number] [facility] 2022-01-22 11:51:44 2022-01-22 23:59:00 Outpatient R RADIOLOGY [facility] [id number] [facility] 2022-01-22 11:51:44 2022-01-22 23:59:00 Hospital Encounter Radiology [facility] [id number] 350.1.13.10 4.2.7.2.686 [id number] [facility] 2022-01-22 00:00:00 2022-01-22 00:00:00 Orders Only Doctor Unassigned, [place] [facility] 1.2.840.114 350.1.13.10 4.2.7.2.686 [id number] [facility] 2021-06-20 12:43:13 2021-06-20 23:59:00 Outpatient R RADIOLOGY [facility] [id number] [facility] 2021-06-20 12:43:13 2021-06-20 23:59:00 Hospital Encounter Radiology [facility] 1.2.840.114 350.1.13.10 4.2.7.2.686 [id number] [facility] 2021-06-14 12:12:19 2021-06-14 23:59:00 Hospital Encounter Radiology [facility] 1.2.840.114 350.1.13.10 4.2.7.2.686 [id number] [facility] 2021-06-14 12:11:53 2021-06-14 12:11:53 Outpatient R RADIOLOGY [facility] [id number] [facility] 2021-06-14 12:11:53 2021-06-14 12:11:53 Hospital Encounter Radiology [facility] 1.2.840.114 350.1.13.10 4.2.7.2.686 [id number] [facility] 2021-04-02 10:47:00 2021-04-02 10:47:00 Outpatient ANTHONY_JEF FREY_NP [facility] [id number] [facility] 2021-03-24 12:38:00 2021-03-24 12:38:00 Outpatient ANTHONY_JEF FREY_NP [facility] [id number] [facility] 2021-01-28 09:20:00 2021-01-28 09:20:00 Outpatient ANTHONY_JEF FREY_NP [facility] [id number] [facility] 2021-01-28 00:00:00 2021-01-28 00:00:00 Rikki Steele, CIVIL ENGINEER: [address] [facility] [address] [address] , [place]. [facility]YVETTE REEDKS[facility] [id number] [facility] 2021-01-28 00:00:00 2021-01-28 00:00:00 Outpatient Rikki Steele [facility] [id number] 2020-10-04 01:01:00 2020-10-04 01:01:00 Outpatient ANDI_FREDRICK TUCKERY_NP [facility] [id number] [facility] 2020-01-30 00:00:00 2020-01-30 00:00:00 Orders Only Doctor Unassigned, [place] [facility] 1..840.114 350.1.13.10 4.2.7.2.686 [id number] [facility] 2020-01-19 09:44:32 2020-01-19 23:59:00 Hospital Encounter Radiology [facility] 1..840.114 350.1.13.10 4.2.7.2.686 [id number] [facility] 2020-01-19 09:41:36 2020-01-19 09:43:00 Outpatient R RADIOLOGY [facility] [id number] [facility] 2020-01-19 09:41:36 2020-01-19 09:43:00 Hospital Encounter Radiology [facility] 1.2.840.114 350.1.13.10 4.2.7.2.686 [id number] [facility] 2020-01-19 00:00:00 2020-01-19 00:00:00 Orders Only Doctor Unassigned, [place] [facility] 1.2.840.114 350.1.13.10 4.2.7.2.686 [id number] [facility] Results Test Description Test Time Test Comments Results Result Comments Source MR LUMBAR SPINE WO CONTRAST 15:53:55 HISTORY: Chronic back pain. History of fall in July making the pain worseand also having bilateral hip pain. TECHNIQUE: Sagittal T2 FRFSE, T1, STIR and axial T2 FRFSE T1 studies oflumbar spines are obtained. Additional coronal T2 FRFSE study is alsoobtained. FINDINGS: Comparison is made with 01/07/2018 MRI study. Exaggerated lumbar lordosis noted. No acute compression fracture oraggressive lesions of the bones detected. Spinal canal appears to be ofadequate size and normal conus/cauda equina are found at the level of L1.Visualized retroperitoneum is unremarkable for aortic aneurysm or enlargedlymph nodes or hydronephrosis. Bilateral renal cysts noted, larger on the right side. T10-T11, T11-T12, T12-L1: Shallow Schmorl's nodes in the vertebralendplates of T10, T11 and T12. Disc degeneration at all 3 levels isslightly narrowed T10-T11 and T11-T12 disc spaces and minimal bulging ofthe disc at T12-L1 causing minimal thecal sac compression. No cordcompression or foraminal narrowing. L1-L2: Shallow Schmorl's nodes in the vertebral endplates, minimal bulgingof the disc and mild facet arthritis. Minimal thecal sac compression noted.No significant foraminal narrowing. L2-L3: Prominent Schmorl's node in the upper plate of L3, disc degenerationwithout bulging of the disc into the spinal canal. Bilateral mild facetarthritis. No foraminal narrowing. L3-L4: Disc degeneration, prominent bulging of the disc slightly to theright of the midline and bilateral facet arthritis with slightly thickenedligamentum flavum causing mild spinal stenosis with circumferential thecalsac compression. No significant foraminal encroachment.Schmorl's node is seen in the lateral upper plate of L4 surrounded bydegenerative marrow. L4-L5: Degenerative disc disease with narrowing of the disc more than 80%,shallow Schmorl's nodes in the vertebral endplates and minimal disc bulgeinto the spinal canal without significant thecal sac compression. Mildfacet arthritis is noted. No significant foraminal narrowing. L5-S1: Grade 1 spondylolisthesis of L5 over S1 with right L5 spondylolysis,shallow Schmorl's nodes surrounded by degenerative marrow, disc spacenarrowing by more than 70%, vacuum phenomenon in the disc material, diffusebulging of the disc and bilateral hypertrophic facet arthritis. 6 mmdegenerative cystic lesion in the left side of the lower endplate of [id number]. Both neural foramina are elongated and narrowed, left more thanright with moderate left nerve root compression suspected. CONCLUSIONS:1. Grade 1 spondylolisthesis at L5-S1 with a right L5 spondylolysis, facetarthritis, more on the left side. Bulging disc and facet arthritis causingforaminal stenosis, more on the left side and causing left nerve rootcompression. There is probably minimal interval worsening in the findingssince 2018 study.2. Degenerative disc disease at L4-L5, less at L3-L4, upper lumbar levelsand lower thoracic levels with multilevel facet arthritis discussed abovewith mild spinal stenosis at L3-L4 causing circumferential thecal saccompression. No significant interval change in the findings when comparedwith 2018 study.3. Bilateral renal cysts, unchanged.4. Approximately 10 stones are suspected in the common duct with dilatedcommon bile duct up to 17 to 18 mm. Similar findings were present in 2018study, however, should be further investigated by ultrasound and/or MRCP. [facility], Radiant Results Inft User - 01/19/2020 10:54 AM CDTHISTORY: Chronic back pain. History of fall in July making the pain worseand also having bilateral hip pain.TECHNIQUE: Sagittal T2 FRFSE, T1, STIR and axial T2 FRFSE T1 studies oflumbar spines are obtained. Additional coronal T2 FRFSE study is alsoobtained.FINDINGS: Comparison is made with 01/07/2018 MRI study.Exaggerated lumbar lordosis noted. No acute compression fracture oraggressive lesions of the bones detected. Spinal canal appears to be ofadequate size and normal conus/cauda equina are found at the level of L1.Visualized retroperitoneum is unremarkable for aortic aneurysm or enlargedlymph nodes or hydronephrosis.Bilatera l renal cysts noted, larger on the right side.T10-T11, T11-T12, T12-L1: Shallow Schmorl's nodes in the vertebralendplates of T10, T11 and T12. Disc degeneration at all 3 levels isslightly narrowed T10-T11 and T11-T12 disc spaces and minimal bulging ofthe disc at T12-L1 causing minimal thecal sac compression. No cordcompression or foraminal narrowing.L1-L2: Shallow Schmorl's nodes in the vertebral endplates, minimal bulgingof the disc and mild facet arthritis. Minimal thecal sac compression noted.No significant foraminal narrowing.L2-L3: Prominent Schmorl's node in the upper plate of L3, disc degenerationwithout bulging of the disc into the spinal canal. Bilateral mild facetarthritis. No foraminal narrowing.L3-L4: Disc degeneration, prominent bulging of the disc slightly to theright of the midline and bilateral facet arthritis with slightly thickenedligamentum flavum causing mild spinal stenosis with circumferential thecalsac compression. No significant foraminal encroachment.Schmorl's node is seen in the lateral upper plate of L4 surrounded bydegenerative marrow.L4-L5: Degenerative disc disease with narrowing of the disc more than 80%,shallow Schmorl's nodes in the vertebral endplates and minimal disc bulgeinto the spinal canal without significant thecal sac compression. Mildfacet arthritis is noted. No significant foraminal narrowing.L5-S1: Grade 1 spondylolisthesis of L5 over S1 with right L5 spondylolysis,shallow Schmorl's nodes surrounded by degenerative marrow, disc spacenarrowing by more than 70%, vacuum phenomenon in the disc material, diffusebulging of the disc and bilateral hypertrophic facet arthritis. 6 mmdegenerative cystic lesion in the left side of the lower endplate of [id number]. Both neural foramina are elongated and narrowed, left more thanright with moderate left nerve root compression suspected.CONCLUSIONS:1 . Grade 1 spondylolisthesis at L5-S1 with a right L5 spondylolysis, facetarthritis, more on the left side. Bulging disc and facet arthritis causingforaminal stenosis, more on the left side and causing left nerve rootcompression. There is probably minimal interval worsening in the findingssince 2018 study.2. Degenerative disc disease at L4-L5, less at L3-L4, upper lumbar levelsand lower thoracic levels with multilevel facet arthritis discussed abovewith mild spinal stenosis at L3-L4 causing circumferential thecal saccompression. No significant interval change in the findings when comparedwith 2018 study.3. Bilateral renal cysts, unchanged.4. Approximately 10 stones are suspected in the common duct with dilatedcommon bile duct up to 17 to 18 mm. Similar findings were present in 2018study, however, should be further investigated by ultrasound and/or MRCP. [facility] XR HIPS 2 VW BILATERAL 15:08:33 HISTORY: Primary osteoarthritis of both hips. FINDINGS: AP view of the pelvis and AP and lateral views centered over bothhip joints showed no acute fracture or dislocation. No signs of AVN in thefemoral heads. No aggressive bone lesions. Mild diffuse high-grade joint space narrowing noted with calcifications inthe acetabulum on the right side. Left side showed minimal signs ofarthritis. CONCLUSIONS:1. Mild right hip joint degenerative arthritis.2. Minimal signs of arthritis in left hip joint. [facility], Radiant Results Inft User - 01/19/2020 10:09 AM CDTHISTORY: Primary osteoarthritis of both hips.FINDINGS: AP view of the pelvis and AP and lateral views centered over bothhip joints showed no acute fracture or dislocation. No signs of AVN in thefemoral heads. No aggressive bone lesions.Mild diffuse high-grade joint space narrowing noted with calcifications inthe acetabulum on the right side. Left side showed minimal signs ofarthritis.CONCLUSIONS :1. Mild right hip joint degenerative arthritis.2. Minimal signs of arthritis in left hip joint. [facility] MRI UP EXT W/O CONT 17:00:[address] [id number] IMAGING REPORTPatient Name: JERRY WATERS RDate of Service: [id number]: [id number] Sex: F Order #: [id number] Room: OPEDOB: 1940 X-Ray Number: [id number] Record Number: [id number] Hospital Number: [id number] Physician: HARDIK LEGGETTOrdering Physician: AYLA LEGGETT right shoulder without contrast 3:00 PMHISTORY: RIGHT shoulder pain, fell in October.FINDINGS:There is motion artifact on the exam is the patient was unable to holdstill. This markedly degrades the quality of the study.There is an old healed fracture of the proximal RIGHT humerus.There is signal alteration within the rotator cuff suggestive of rotatorcuff tendinosis. There is also a tiny partial thickness undersurface smallrotator cuff tear involving the distal aspect of the tendon critical zonefar anteriorly measuring approximately 8 mm. There is no tendon retraction.There is no full-thickness tear.There is no obvious displaced labral tear although a subtle labral tearcould go undetected due to motion artifact.The biceps tendon lies in the biceps groove.No soft tissue mass or cyst.Mild AC joint osteoarthritis.Mild bursal fluid in the subacromial subdeltoid bursa.IMPRESSION:Limite d exam due to significant motion artifact.Tiny partial-thickness rotator cuff tear with associated rotator cufftendinosis. No full-thickness tear.Old healed proximal RIGHT humerus fracture deformity.Electronicall y Signed By: Clovis Reed M.D., 03/03/2019 4:58 PMLegally authenticated by LULI CUEVA 2019-03-03 16:58:32
--- NOTE | 2023-06-15 19:46 | RAD REPORT ---
EXAM DESCRIPTION: Zo Single View06/15/2023 7:21 pm CLINICAL HISTORY: FEVER COMPARISON: 12/19/2014 TECHNIQUE: Portable AP view of the chest. FINDINGS: Decreased inspiratory effort limits evaluation. The lungs are clear. No pneumothorax or e ffusion. The cardiomediastinal contours are unremarkable. IMPRESSION: No acute cardiopulmonary process.
[2023-06-15] MEDS ORDERED: CEFTRIAXONE 1000 MG/VIAL ONE (19:49)
[2023-06-15] MEDS ORDERED: NA CHLORIDE 0.9% 2,000 ML ONE (19:49)
[2023-06-15] MEDS ORDERED: NA CHLORIDE 0.9% 500 ML ONE (19:50)
[2023-06-15] MEDS ORDERED: NA CHLORIDE 0.9% 50 ML ONE (19:50)
[2023-06-15 19:56] LABS: Absolute Lymphocytes (CBC) 0.2 K/uL (0.7-4.9); Hematocrit 34.5 % (36.0-45.0); MPV 8.7 fL (7.6-11.3); Platelets 154 thou/uL (152-406); RBC Red Blood Cell Count 3.79 M/uL (3.86-4.86)
[2023-06-15 20:18] LABS: Albumin 3.7 g/dL (3.4-5.0); Bilirubin Total 0.4 mg/dL (0.2-1.0); Potassium 4.2 mEq/L (3.5-5.1); Protein, Total 7.3 g/dL (6.4-8.2); Protime INR 1.12
[2023-06-15] MEDS ORDERED: ACETAMINOPHEN 500 MG TAB ONE (20:50)
[2023-06-15 21:29] LABS: Specific Gravity 1.021 (1.005-1.030); Urine Bacteria None Seen /HPF (<20); Urine Bilirubin NEGATIVE (Negative); Urine Blood Negative (Negative); Urine Clarity Clear (Clear); Urine Color Light-Yellow (Yellow); Urine Glucose NEGATIVE (Negative); Urine Protein NEGATIVE (Negative); Urine RBC <5 /HPF (None Seen); Urine Urobilinogen 1+ (Normal); Urine pH 5.5 (5.0-7.0)
[2023-06-15 21:55] LABS: SARS-CoV-2 Antigen Rapid Res Positive (Negative)
--- NOTE | 2023-06-15 22:04 | RAD REPORT ---
EXAM DESCRIPTION: CT - Chest Abd Pelvis Wo Con - 06/15/2023 9:12 pm CLINICAL HISTORY: ABDOMINAL DISTENTION COMPARISON: No comparisons TECHNIQUE: Thin axial CT images of the chest, abdomen, and pelvis, performed without IV contrast. Mu ltiplanar reformats were generated and reviewed. All CT scans are performed using dose optimization technique as appropriate and may include automated exposure control or mA/KV adjustment according to patient size. FINDINGS: The lungs are clear.No pleural or pericardial effusion.Small pericardial effusion.No intra thoracic adenopathy. The liver, spleen, pancreas, and adrenal glands are within normal limits. Status post cholecystectomy . Common bile duct is markedly distended and tortuous, up to 1.9 cm in caliber, with numerous hyperde nse calculi throughout the common bile duct and common hepatic duct. Kidneys demonstrate multiple cortical hypoattenuating lesions suggestive of cysts, largest measuring 4.2 cm No bowel obstruction, free air, free fluid or abscess. Colonic diverticulosis. Urinary bladder is decompressed with Parra catheter in place. . No pathologic lymphadenopathy in th e abdomen or pelvis. No worrisome osseous finding. Spinal cord stimulator in place. Grade 1 anterolisthesis at L5-S1. IMPRESSION: Markedly distended common bile duct and common hepatic duct, with a large burden of duct al calculi. Status post cholecystectomy. Colonic diverticulosis. Small pericardial effusion. Bilateral renal cortical hypoattenuating lesions, suggestive of cysts, although not fully characteriz ed.
[2023-06-15] MEDS ORDERED: METOCLOPRAMIDE 10 MG/2mL INJ ONE (22:55)
[2023-06-15] MEDS ORDERED: OSELTAMIVIR 75 MG CAP PO ONE (22:55)
[2023-06-15] MEDS ORDERED: MORPHINE 2 MG/ML SYR ONE (22:55)
[2023-06-15 23:35] LABS: Troponin High Sensitivity 26.5 pg/mL (<58.9)
--- NOTE | 2023-06-15 23:39 | ER ---
Nurse's Notes [facility] Name: Ana Paula Nichols Age: 83 yrs Sex: Female : 1940 Arrival Date: 06/15/2023 Time: 18:48 Bed 16 Private MD: Diagnosis: Other specified viral diseases;COVID -19 acute, Influenza B, Generalized weakness, Dehydration, Fever Presentation: 06/15 18:58 Chief complaint: EMS states: From home, c/o AMS, fever and decreased urination, oral ph temp 102.8, HR 130s, sinus tach, BP 106/66, hx of UTI, normal mentation A\T\O x 4, 975 Tylenol and fluids administered, ice packs placed to groin and back of neck. Coronavirus screen: Vaccine status: Patient reports receiving the 2nd dose of the covid vaccine. Ebola Screen: No symptoms or risks identified at this time. Initial Sepsis Screen: Does the patient meet any 2 criteria? RR > 20 per min. Temp <36.0*C (96.8*F)) or > 38.3*C (100.9*F). Altered Mental Status. HR > 90 bpm. Yes Does the patient have a suspected source of infection? Yes: Dysuria/Frequency/Urgency/UTI. Risk Assessment: Do you want to hurt yourself or someone else? Patient reports no desire to harm self or others. Onset of symptoms was June 15, 2023. 18:58 Method Of Arrival: EMS: [facility] ph 18:58 Acuity: ANDRY 2 ph Triage Assessment: 19:08 General: Appears in no apparent distress. Behavior is cooperative, drowsy, quiet. Pain: ph Complains of pain in back. Neuro: Level of Consciousness is obeys commands, confused, lethargic, Oriented to person. Cardiovascular: Capillary refill < 3 seconds in bilateral fingers Patient's skin is warm and dry. Rhythm is sinus tachycardia. Respiratory: Airway is patent. Derm: Skin is pink, warm \T\ dry. Historical: - Allergies: 19:07 Digoxin; ph 19:07 Percodan; ph 19:07 Tape; ph 19:07 Tetanus Vaccines \T\ Toxoid; ph - PMHx: 19:07 CHF; COPD; High Cholesterol; Hypertension; Thyroid problem; ph - Immunization history:: Adult Immunizations unknown. - Social history:: Smoking status: unknown. Screenin:00 [facility] ED Fall Risk Assessment (Adult) History of falling in the last 3 months, jw7 including since admission Yes- single mechanical fall (1 pt) Confusion or Disorientation Yes (5 pts) Intoxicated or Sedated No (0 pts) Impaired Gait Yes (1 pt) Mobility Assist Device Used No (0 pt) Altered Elimination No (0 pt) Score/Fall Risk Level 3 or more points = High Risk Oriented to surroundings, Maintained a safe environment, Educated pt \T\ family on fall prevention, incl call for assistance when getting out of bed, Assessed \T\ reinforced patient's understanding of fall precautions, Provided non-skid footwear. Abuse screen: Denies threats or abuse. Denies injuries from another. Nutritional screening: No deficits noted. Tuberculosis screening: No symptoms or risk factors identified. Assessment: 19:00 General: See Triage Assessment. jw7 20:00 Reassessment: Patient appears in no apparent distress at this time. No changes from jw7 previously documented assessment. Patient and/or family updated on plan of care and expected duration. Pain level reassessed. Patient is alert, oriented x 3, equal unlabored respirations, skin warm/dry/pink. 21:00 Reassessment: Patient appears in no apparent distress at this time. No changes from jw7 previously documented assessment. Patient and/or family updated on plan of care and expected duration. Pain level reassessed. Patient is alert, oriented x 3, equal unlabored respirations, skin warm/dry/pink. 22:00 Reassessment: Patient appears in no apparent distress at this time. No changes from jw7 previously documented assessment. Patient and/or family updated on plan of care and expected duration. Pain level reassessed. Patient is alert, oriented x 3, equal unlabored respirations, skin warm/dry/pink. 23:00 Reassessment: Patient appears in no apparent distress at this time. No changes from jw7 previously documented assessment. Patient and/or family updated on plan of care and expected duration. Pain level reassessed. Patient is alert, oriented x 3, equal unlabored respirations, skin warm/dry/pink. 06/16 00:00 Reassessment: Patient appears in no apparent distress at this time. No changes from jw7 previously documented assessment. Patient and/or family updated on plan of care and expected duration. Pain level reassessed. Patient is alert, oriented x 3, equal unlabored respirations, skin warm/dry/pink. 01:00 Reassessment: Patient appears in no apparent distress at this time. No changes from jw7 previously documented assessment. Patient and/or family updated on plan of care and expected duration. Pain level reassessed. Patient is alert, oriented x 3, equal unlabored respirations, skin warm/dry/pink. Vital Signs: 06/15 18:58 BP 106 / 66; Pulse 106; Resp 20; Temp 101.8; Pulse Ox 100% on R/A; Weight 81.65 kg; ph Height 5 ft. 4 in. ; 19:20 BP 120 / 56; Pulse 103; Resp 19 S; Pulse Ox 94% on R/A; jw7 20:15 BP 127 / 60; Pulse 102; Resp 16 S; Pulse Ox 96% on R/A; jw7 21:10 BP 115 / 56; Pulse 95; Resp 16 S; Pulse Ox 95% on R/A; jw7 22:30 BP 110 / 52; Pulse 83; Resp 18 S; Pulse Ox 95% on R/A; jw7 23:30 BP 103 / 46; Pulse 86; Resp 22 S; Pulse Ox 95% on R/A; jw7 06/16 01:00 BP 101 / 51; Pulse 73; Resp 16 S; Pulse Ox 97% on R/A; jw7 06/15 18:58 Body Mass Index 30.90 (81.65 kg, 162.56 cm) ph ED Course: 06/15 18:57 Patient arrived in ED. bd 18:58 Dong Ortiz DO is Attending Physician. ms3 19:00 Patient has correct armband on for positive identification. Bed in low position. Call jw7 light in reach. Side rails up X2. 19:07 Triage completed. 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 19:22 Chest Single View XRAY In Process Unspecified. EDMS 19:35 Inserted saline lock: 22 gauge in left antecubital area, using aseptic technique. Blood jw7 collected. 19:35 Initial lab(s) drawn, by me, sent to lab. First set of blood cultures drawn by me, EKG jw7 done, by ED staff, reviewed by Dong Ortiz DO. 20:20 Attending Physician role handed off by Dong Ortiz, sp4 20:20 Benjamin Mijares MD is Attending Physician. sp4 20:46 Parra cath inserted, using sterile technique, 16 Fr., by me, balloon inflated, to mc5 gravity drainage, urine specimen collected. returned cloudy urine. Patient tolerated well. 800 ml drained into bag. 21:00 COVID swab sent to lab. Flu and/or RSV swab sent to lab. jw7 21:14 Chest Abd Pelvis Wo Con In Process Unspecified. EDMS 22:41 No provider procedures requiring assistance completed. jw7 23:37 Red Cheney MD is Hospitalizing Provider. sp4 06/16 01:14 Patient admitted, IV remains in place. jw7 01:15 Provided Education on: need for admit. jw7 Administered Medications: 06/15 20:07 Discontinued: ns 0.9% (30 ml/kg) 30 ml/kg IV at bolus once; Sepsis Protocol ms3 20:03 Drug: NS 0.9% IV (30 ml/kg) 30 ml/kg IV at bolus once; Sepsis Protocol Route: IV; Rate: jw7 bolus; Site: right forearm; 20:13 Follow up: Response: No adverse reaction; IV Status: Order to discontinue infusion; IV jw7 Intake: 50ml 20:03 Drug: Rocephin IV 1 grams IV at calculated rate once; Given slow IV push per pharmacy jw7 instructions Route: IV; Rate: calculated rate; Site: right forearm; 06/16 03:14 Follow up: Response: No adverse reaction; IV Status: Completed infusion; IV Intake: [id number] 06/15 20:13 Drug: NS 0.9% IV 500 ml IV at bolus once Route: IV; Rate: bolus; Site: right forearm; jw7 06/16 03:14 Follow up: Response: No adverse reaction; IV Status: Completed infusion; IV Intake: jw7 500ml 06/15 20:56 Drug: Acetaminophen PO 1000 mg PO once Route: PO; jw7 06/16 03:14 Follow up: Response: No adverse reaction jw7 06/15 21:31 Drug: NS 0.9% IV 1000 ml IV at 125 ml/hr continuous Route: IV; Rate: 125 ml/hr; Site: [facility] right forearm; 06/16 03:13 Follow up: Response: No adverse reaction; IV Status: Infusion continued upon admission; jw7 IV Intake: 800ml 06/15 23:14 Drug: morphine IVP or IV 2 mg IVP once over 4 mins Route: IVP; Infused Over: 4 mins; jw7 Site: left antecubital; 06/16 03:13 Follow up: Response: No adverse reaction; Marked relief of symptoms jw7 06/15 23:14 Drug: metoCLOPramide IVP 10 mg IVP once; over 1 to 2 minutes Route: IVP; Site: left jw7 antecubital; 06/16 03:13 Follow up: Response: No adverse reaction jw7 06/15 23:14 Drug: Oseltamivir PO 75 mg PO once Route: PO; jw7 06/16 03:13 Follow up: Response: No adverse reaction jw7 00:47 Drug: Albumin IVPB 25 grams 100 ml IVPB once; (Note: Albumin 25% concentration) Volume: jw7 100 ml; Route: IVPB; Site: left antecubital; 03:13 Follow up: Response: No adverse reaction; IV Status: Completed infusion; IV Intake: jw7 100ml 00:48 Drug: Albumin IVPB 25 grams 100 ml IVPB once; (Note: Albumin 25% concentration) Volume: jw7 100 ml; Route: IVPB; Site: left antecubital; 03:13 Follow up: Response: No adverse reaction; IV Status: Completed infusion; IV Intake: jw7 100ml Medication: 06/15 22:41 VIS not applicable for this client. jw7 Intake: 20:13 IV: 50ml; Total: 50ml. jw7 06/16 03:13 IV: 100ml; Total: 150ml. jw7 03:13 IV: 100ml; Total: 250ml. jw7 03:13 IV: 800ml; Total: 1050ml. jw7 03:14 IV: 500ml; Total: 1550ml. jw7 03:14 IV: 50ml; Total: 1600ml. jw7 Outcome: 06/15 23:38 Decision to Hospitalize by Provider. sp4 06/16 01:14 Admitted to ER Hold. Please see [facility] for further documentation. jw7 Condition: stable Instructed on the need for admit, Demonstrated understanding of instructions, 13:03 Patient left the ED. kc6 Signatures: Dispatcher [employer] EDMS Kalyn Waddell Patricia RN RN Dong Ortiz DO DO ms3 Eladia Higgins RN RN jw7 Victoria Russell RN RN kc6 Benjamin Mijares MD MD sp4 Mayela Voss 5
--- NOTE | 2023-06-15 23:39 | EDPHYS ---
[facility] Name: Ana Paula Nichols Age: 83 yrs Sex: Female : 1940 Arrival Date: 06/15/2023 Time: 18:48 Bed 16 Private MD: ED Physician Benjamin Mijares HPI: 06/15 19:05 This 83 yrs old Female presents to ER via Unassigned with complaints of fever. ms3 19:05 83-year-old female presents via [facility] for fever, tachycardia, altered mental ms3 status. EMS notes patient has history of UTI. Patient states she developed dysuria yesterday and a fever last night. Patient denies any alleviating or inciting factors. Historical: - Allergies: 19:07 Digoxin; ph 19:07 Percodan; ph 19:07 Tape; ph 19:07 Tetanus Vaccines \T\ Toxoid; ph - PMHx: 19:07 CHF; COPD; High Cholesterol; Hypertension; Thyroid problem; ph - Immunization history:: Adult Immunizations unknown. - Social history:: Smoking status: unknown. ROS: 19:05 Neck: Negative for injury, pain, and swelling, Cardiovascular: Negative for chest pain, ms3 and palpitations. Respiratory: Negative for shortness of breath, cough, wheezing, and pleuritic chest pain, Abdomen/GI: Negative for abdominal pain, nausea, vomiting, diarrhea, and constipation, MS/Extremity: Negative for injury and deformity, Skin: Negative for injury, rash, and discoloration, 19:05 Constitutional: Positive for fever, 19:05 : Positive for urinary frequency, burning with urination, Exam: 19:05 Constitutional: This is a well developed, well nourished patient who is awake, alert, ms3 and in no acute distress. Neck: Trachea midline, no cervical lymphadenopathy. Supple, full range of motion without nuchal rigidity, or vertebral point tenderness. No Meningismus. Chest/axilla: Normal chest wall appearance and motion. Nontender with no deformity. 19:05 Abdomen/GI: Soft, non-tender, with normal bowel sounds. No distension or tympany. No guarding or rebound. No evidence of tenderness throughout. Skin: Warm, dry with normal turgor. Normal color with no rashes, no lesions, and no evidence of cellulitis. MS/ Extremity: Pulses equal, no cyanosis. Neurovascular intact. Full, normal range of motion. 19:05 Cardiovascular: Rate: tachycardic, Rhythm: regular, Pulses: no pulse deficits are appreciated, Heart sounds: normal, normal S1and S2, 19:16 ECG was reviewed by the Attending Physician. ms3 Vital Signs: 18:58 BP 106 / 66; Pulse 106; Resp 20; Temp 101.8; Pulse Ox 100% on R/A; Weight 81.65 kg; ph Height 5 ft. 4 in. ; 19:20 BP 120 / 56; Pulse 103; Resp 19 S; Pulse Ox 94% on R/A; jw7 20:15 BP 127 / 60; Pulse 102; Resp 16 S; Pulse Ox 96% on R/A; jw7 21:10 BP 115 / 56; Pulse 95; Resp 16 S; Pulse Ox 95% on R/A; jw7 22:30 BP 110 / 52; Pulse 83; Resp 18 S; Pulse Ox 95% on R/A; jw7 23:30 BP 103 / 46; Pulse 86; Resp 22 S; Pulse Ox 95% on R/A; jw7 06/16 01:00 BP 101 / 51; Pulse 73; Resp 16 S; Pulse Ox 97% on R/A; jw7 06/15 18:58 Body Mass Index 30.90 (81.65 kg, 162.56 cm) ph MDM: 06/15 18:58 Patient medically screened. ms3 19:05 Differential diagnosis: viral Infection, bacterial infection, pneumonia UTI. ms3 23:36 Data reviewed: vital signs, nurses notes, EMS record, old medical records, lab test sp4 result(s), EKG, radiologic studies, CT scan, plain films. Consideration of Admission/Observation Patient was admitted/placed on observation. Escalation of care including admission/observation considered. Management of patient was discussed with the following: Hospitalist: Red FRYE . ED course: CT - TECHNIQUE: Thin axial CT images of the chest, abdomen, and pelvis, performed without IV contrast. Multiplanar reformats were generated and reviewed. All CT scans are performed using dose optimization technique as appropriate and may include automated exposure control or mA/KV adjustment according to patient size. FINDINGS: The lungs are clear.No pleural or pericardial effusion.Small pericardial effusion.No intrathoracic adenopathy. The liver, spleen, pancreas, and adrenal glands are within normal limits. Status post cholecystectomy. Common bile duct is markedly distended and tortuous, up to 1.9 cm in caliber, with numerous hyperdense calculi throughout the common bile duct and common hepatic duct. Kidneys demonstrate multiple cortical hypoattenuating lesions suggestive of cysts, largest measuring 4.2 cm No bowel obstruction, free air, free fluid or abscess. Colonic diverticulosis. Urinary bladder is decompressed with Parra catheter in place. . No pathologic lymphadenopathy in the abdomen or pelvis. No worrisome osseous finding. Spinal cord stimulator in place. Grade 1 anterolisthesis at L5-S1. IMPRESSION: Markedly distended common bile duct and common hepatic duct, with a large burden of ductal calculi. Status post cholecystectomy. Colonic diverticulosis. Small pericardial effusion. Bilateral renal cortical hypoattenuating lesions, suggestive of cysts, although not fully characterized. ED course: Report Status: Signed EXAM DESCRIPTION: Zo Single View06/15/2023 7:21 pm CLINICAL HISTORY: FEVER COMPARISON: 12/19/2014 TECHNIQUE: Portable AP view of the chest. FINDINGS: Decreased inspiratory effort limits evaluation. The lungs are clear. No pneumothorax or effusion. The cardiomediastinal contours are unremarkable. IMPRESSION: No acute cardiopulmonary process.. 06/15 18:59 Order name: Blood Culture Adult (2) 06/15 18:59 Order name: CBC with Diff; Complete Time: 20:20 3 06/15 18:59 Order name: CMP; Complete Time: 20:20 3 06/15 18:59 Order name: Lactate w/ 2H reflex if indic.; Complete Time: 20:20 06/15 18:59 Order name: Protime (+inr); Complete Time: 20:20 3 06/15 18:59 Order name: Ptt, Activated; Complete Time: 20:20 3 06/15 18:59 Order name: Urinalysis w/ reflexes; Complete Time: 22:47 3 06/15 20:22 Order name: SARS RAPID; Complete Time: 22:47 4 06/15 20:22 Order name: Influenza Screen (a \T\ B); Complete Time: 22:47 4 06/15 20:25 Order name: BNP; Complete Time: 00:24 sp4 06/15 20:25 Order name: Troponin High Sensitivity; Complete Time: 00:24 sp4 06/15 20:25 Order name: CRP; Complete Time: 00:24 sp4 06/15 20:25 Order name: Procalcitonin; Complete Time: 00:24 sp4 06/15 23:59 Order name: Urinalysis w/ reflexes EDMS 06/15 23:59 Order name: Basic Metabolic Panel EDMS 06/15 23:59 Order name: Basic Metabolic Panel EDMS 06/15 23:59 Order name: CBC with Automated Diff EDMS 06/15 23:59 Order name: CBC with Automated Diff EDMS 06/16 11:18 Order name: Liver (Hepatic) Function EDMS 06/16 12:38 Order name: Manual Differential EDMS 06/15 18:59 Order name: Chest Single View XRAY; Complete Time: 19:49 ms3 06/15 21:10 Order name: Chest Abd Pelvis Wo Con; Complete Time: 22:47 EDMS 06/15 18:59 Order name: EKG; Complete Time: 18:59 ms3 06/15 18:59 Order name: Accucheck; Complete Time: 19:47 ms3 06/15 18:59 Order name: Cardiac monitoring; Complete Time: 19:17 ms3 06/15 18:59 Order name: EKG - Nurse/Tech; Complete Time: 19:17 ms3 06/15 18:59 Order name: IV Saline Lock - Large Bore; Complete Time: 19:47 ms3 06/15 18:59 Order name: Labs collected and sent; Complete Time: 19:47 ms3 06/15 18:59 Order name: O2 Per Protocol; Complete Time: 19:17 ms3 06/15 18:59 Order name: O2 Sat Monitoring; Complete Time: 19:17 ms3 06/15 18:59 Order name: Vital Signs; Complete Time: 19:17 ms3 06/15 20:25 Order name: Parra; Complete Time: 20:47 sp4 EC:16 Rate is 104 beats/min. Rhythm is regular. QRS Leon is Normal. NC interval is normal. ms3 QRS interval is normal. Clinical impression: NSR w/ Non-specific ST/T Changes. Interpreted by me. Reviewed by me. Administered Medications: 20:07 Discontinued: ns 0.9% (30 ml/kg) 30 ml/kg IV at bolus once; Sepsis Protocol ms3 20:03 Drug: NS 0.9% IV (30 ml/kg) 30 ml/kg IV at bolus once; Sepsis Protocol Route: IV; Rate: jw7 bolus; Site: right forearm; 20:13 Follow up: Response: No adverse reaction; IV Status: Order to discontinue infusion; IV jw7 Intake: 50ml 20:03 Drug: Rocephin IV 1 grams IV at calculated rate once; Given slow IV push per pharmacy jw7 instructions Route: IV; Rate: calculated rate; Site: right forearm; 06/16 03:14 Follow up: Response: No adverse reaction; IV Status: Completed infusion; IV Intake: 50huml1 06/15 20:13 Drug: NS 0.9% IV 500 ml IV at bolus once Route: IV; Rate: bolus; Site: right forearm; jw 06/16 03:14 Follow up: Response: No adverse reaction; IV Status: Completed infusion; IV Intake: jw7 500ml 06/15 20:56 Drug: Acetaminophen PO 1000 mg PO once Route: PO; jw 06/16 03:14 Follow up: Response: No adverse reaction 06/15 21:31 Drug: NS 0.9% IV 1000 ml IV at 125 ml/hr continuous Route: IV; Rate: 125 ml/hr; Site: [facility] right forearm; 06/16 03:13 Follow up: Response: No adverse reaction; IV Status: Infusion continued upon admission; jw7 IV Intake: 800ml 06/15 23:14 Drug: morphine IVP or IV 2 mg IVP once over 4 mins Route: IVP; Infused Over: 4 mins; jw Site: left antecubital; 06/16 03:13 Follow up: Response: No adverse reaction; Marked relief of symptoms 06/15 23:14 Drug: metoCLOPramide IVP 10 mg IVP once; over 1 to 2 minutes Route: IVP; Site: left jw antecubital; 06/16 03:13 Follow up: Response: No adverse reaction 06/15 23:14 Drug: Oseltamivir PO 75 mg PO once Route: PO; 7 06/16 03:13 Follow up: Response: No adverse reaction [facility] 00:47 Drug: Albumin IVPB 25 grams 100 ml IVPB once; (Note: Albumin 25% concentration) Volume: jw7 100 ml; Route: IVPB; Site: left antecubital; 03:13 Follow up: Response: No adverse reaction; IV Status: Completed infusion; IV Intake: jw7 100ml 00:48 Drug: Albumin IVPB 25 grams 100 ml IVPB once; (Note: Albumin 25% concentration) Volume: jw7 100 ml; Route: IVPB; Site: left antecubital; 03:13 Follow up: Response: No adverse reaction; IV Status: Completed infusion; IV Intake: jw7 100ml Disposition Summary: 06/15/23 23:38 Hospitalization Ordered Notes: Hospitalization Status: Observation sp4 Provider: Red Cheney sp4 Condition: Stable sp4 Problem: new sp4 Symptoms: have improved sp4 Bed/Room Type: Standard sp4 Location: Telemetry/MedSurg (observation)(06/16/23 10:51) [facility] Room Assignment: [facility](06/16/23 10:51) [facility] Diagnosis - Other specified viral diseases sp4 - COVID -19 acute, Influenza B, Generalized weakness, Dehydration, Fever sp4 Forms: - Medication Reconciliation Form sp4 - SBAR form sp4 - Leadership Thank You Letter sp4 Signatures: Dispatcher [employer] EDAL Luisa Monsalve RN RN ph Nereyda Lilly RN RN lg3 Dong Ortiz DO DO ms3 Eladia Higgins RN RN jw7 Victoria Russell RN RN kc6 Benjamin Mijares MD MD sp4 Corrections: (The following items were deleted from the chart) 06/15 21:10 20:26 Chest Abdomen Pelvis W Con+CT.RAD.BRZ ordered. [facility] 06/16 01:59 06/15 23:38 Telemetry/MedSurg (observation) sp4 lg3 06/16 01:59 06/15 23:38 sp4 lg3 06/16 10:51 01:59 BR ER HOLD lg3 kc6 10:51 01:59 ERHOLD- lg3 kc6
[2023-06-15] MEDS ORDERED: ONDANSETRON 4 MG/2 ML VIAL IV PRN (23:53)
[2023-06-15] MEDS ORDERED: MAGNESIUM HYDROXIDE 8% 30 ML PO PRN (23:53)
--- NOTE | 2023-06-15 23:53 | P.HP ---
Certification for Inpatient Patient admitted to: Inpatient With expected LOS: >2 Midnights Practitioner: I am a practitioner with admitting privileges, knowledge of patient current condition, hospital course, and medical plan of care. Services: Services provided to patient in accordance with Admission requirements found in Title 42 Section 412.3 of the Code of Federal Regulations Patient History Date of Service: 06/16/23 Reason for admission: COVID-19 disease, flu infection. History of Present Illness: 83-year-old female patient with past medical history significant for hypo thyroidism, hypertension, hyperlipidemia who had come into the ED with complaint of general body headache and lethargy. She reported also some shortness of breath and she does have a history of COPD/asthma. She was worked up and found to have COVID-19 disease and also a flu test, positive. She denied overt episode of fever, chills, rigor, nausea, vomiting, chronic productive cough. She was admitted for symptomatic therapy and monitoring. Allergies aspirin [From Percodan] Allergy (Verified 12/15/14 06:19) Itching oxycodone HCl [From Percodan] Allergy (Verified 12/15/14 06:19) Itching oxycodone terephthalate [From Percodan] Allergy (Verified 12/15/14 06:19) Itching Tetanus Vaccines and Toxoid [Tetanus Vaccines & Toxoid] Allergy (Verified 12/15/14 06:19) Itching Digitalis Glycosides Adverse Reaction (Verified 12/15/14 06:19) Anaphylaxis digitalis Allergy (Uncoded 12/15/14 08:25) heart races Tetanus Vaccines & Toxoi Allergy (Uncoded 12/15/14 08:25) Unknown Home Medications: Furosemide 40 mg PO DAILY 12/15/14 Gabapentin 300 mg PO 5XD 12/15/14 Levothyroxine [Synthroid*] 88 mcg PO [id number] 12/15/14 Metoprolol Succinate [Toprol Xl*] 50 mg PO DAILY 12/15/14 Potassium Chloride [Klor-Con M20] 20 meq PO DAILY 12/15/14 Simvastatin 20 mg PO BEDTIME 12/15/14 allopurinoL [Allopurinol] 300 mg PO DAILY 12/15/14 Cefdinir [Omnicef] 300 mg PO BID #14 capsule 12/16/14 Methylprednisolone [Medrol dosepack] 4 mg PO DAILY #1 tab.ds.pk 12/16/14 - Past Medical/Surgical History Diabetic: No -: COPD -: Asthma -: [place] -: Hypothyroidism -: Dermoid cyst -: Hysterectomy -: Hoang Masectomy -: Cholecystectomy -: appendectomy -: C3-C4 fusion -: L3 surgery Herniated disk -: Fractured humerus, fractured left foot -: Left vericose veins surgery - Social History Alcohol use: No CD- Drugs: No Caffeine use: Yes Review of Systems General: Weakness, Malaise Eyes: Unremarkable ENT: Unremarkable Respiratory: Cough Cardiovascular: Unremarkable Gastrointestinal: Unremarkable Genitourinary: Unremarkable Musculoskeletal: Unremarkable Integumentary: Unremarkable Neurological: Unremarkable Lymphatics: Unremarkable Physical Examination - Physical Exam General: Alert, Oriented x3 HEENT: Atraumatic Neck: Supple Respiratory: Normal air movement Cardiovascular: Regular rate/rhythm, Normal S1 S2 Gastrointestinal: Soft and benign Musculoskeletal: No swelling Neurological: Normal speech, Normal strength at 5/5 x4 extr - Studies Laboratory Data (last 24 hrs) 06/15/23 06/15/23 06/15/23 19:35 19:35 19:35 WBC 4.10 L Hgb 11.3 L Hct 34.5 L Plt Count 154 PT 12.3 INR 1.12 APTT 34.4 Sodium 138 Potassium 4.2 BUN 22 H Creatinine 1.03 H Glucose 109 H Total Bilirubin 0.4 AST 24 ALT 19 Alkaline Phosphatase 113 Microbiology Data (last 24 hrs): 06/15/23 20:45 Nasopharnyx Influenza Type A Antigen Screen - Final 06/15/23 20:45 Nasopharnyx Influenza Type B Antigen Screen - Final Assessment and Plan - Plan COVID-19 disease, flu infection: Patient did have significant lab abnormality with positive COVID test and flu test. Will start symptomatic therapy with vitamin C, vitamin B and zinc therapy. Paxlovid dose started for COVID-19 disease management Will have empiric antibiotic of Rocephin. Continue breathing treatment for management of wheezing/shortness of breath as needed. Continue Tylenol for pain control. Follow-up symptoms closely Will consult pulmonary physician if needed. Hypothyroidism: Continue levothyroxine dose Hyperlipidemia: Continue statin dose Prophylaxis: Lovenox for DVT prophylaxis CODE STATUS: Full code Disposition: We will treat COVID-19 disease and flu infection and she was discharged when deemed clinically stable. - Advance Directives Does patient have a Living Will: No Does patient have a Durable POA for Healthcare: No
[2023-06-16] MEDS ORDERED: ALBUMIN HUMAN 25% 200 ML IV ONE (00:30)
[2023-06-16 02:19] VITALS: BMI 30.9
[2023-06-16] MEDS ORDERED: ACETAMINOPHEN 325 MG TABLET ONE (05:00)
[2023-06-16] MEDS: ACETAMINOPHEN 325 MG TABLET PO PRN ×2 (05:05→15:33)
[2023-06-16] MEDS ORDERED: OSELTAMIVIR 30 MG CAP PO SCH (09:00)
[2023-06-16] MEDS: NIRMATRELVIR/RITONAVIR TABLET PO SCH ×3 (09:00→19:59)
[2023-06-16] MEDS: ZINC SULFATE 220 MG CAP PO SCH (09:00)
[2023-06-16] MEDS ORDERED: ZINC SULFATE 220 MG CAP ONE (09:40)
[2023-06-16] MEDS ORDERED: ASCORBIC ACID 500 MG TABLET ONE (09:40)
[2023-06-16] MEDS: ASCORBIC ACID 500 MG TABLET PO SCH (09:44)
[2023-06-16] MEDS: VITAMIN B COMPLEX 1 CAP PO SCH (09:44)
[2023-06-16] MEDS: OSELTAMIVIR 30 MG CAP PO SCH ×2 (09:44→19:59)
[2023-06-16] MEDS: ENOXAPARIN 40 MG/0.4 ML SQ SCH (09:44)
[2023-06-16 10:54] LABS: Absolute Lymphocytes (CBC) 0.5 K/uL (0.7-4.9); Hematocrit 28.5 % (36.0-45.0); Lymphocytes % 22.3 % (15.3-44.8); MCV 91.8 fL (80-100); MPV 8.6 fL (7.6-11.3); Platelets 108 thou/uL (152-406)
[2023-06-16 11:08] LABS: Potassium 3.9 mEq/L (3.5-5.1)
[2023-06-16 11:15] LABS: Albumin 3.2 g/dL (3.4-5.0); Bilirubin Direct 0.1 mg/dL (0-0.2); Bilirubin Indirect, Calculated 0.2 mg/dL (0.2-0.8); Bilirubin Total 0.3 mg/dL (0.2-1.0)
[2023-06-16 12:38] LABS: Blood Morphology Comment NOT SEEN (NOT SEEN); Platelet Estimate ADEQ
--- NOTE | 2023-06-16 12:40 | P.PN ---
Date of Service: 06/16/23 Subjective: reports some back, RUQ, groin pain; nonspecific no nausea/vomiting, no diarrhea states 2 months of R flank pain ROS: 10 point ROS as noted above, otherwise negative Physical Exam: GEN: Alert, oriented, NAD HEENT: Normal conjunctiva, sclera anicteric CV: Regular rate and rhythm, no edema Pulm: Nonlabored respirations on room air, diminished at bases b/l ABD: Soft, nondistended, mild RUQ tenderness Neuro: Normal speech, normal affect vitals reviewed Problem List: acute Covid-19 / Influenza B positive Distended CBD with multiple stones; incidental finding Chronic COPD / asthma Chronic CHF Hypothyroidism Hyperlipidemia Acute Covid-19 / Influenza B positive Chronic COPD / asthma tested positive for Covid and influenza Continue paxlovid, continue tamiflu continue symptomatic therapy with zinc, vitamin B & C afebrile, no leukocytosis procal, CRP mildly elevated pulm consulted Distended CBD with multiple stones CT chest/abd (06/15): Markedly distended common bile duct and common hepatic duct, with a large burden of ductal calculi. s/p cholecystectomy. Colonic diverticulosis. Small pericardial effusion. Bilateral renal cortical hypoattenuating lesions, suggestive of cysts GI and general surgery consulted reports some R flank pain for 2 months, unclear if due to stones; pt is nonspecific when describing pain LFTs normal outpatient ERCP unless acutely obstructs / worsens Chronic CHF Hypothyroidism Hyperlipidemia confirm home meds, restart as appropriate VTE: Lovenox Code: Full Dispo: Home, ~2 days
--- NOTE | 2023-06-16 15:57 | CON ---
Date of Consultation: 06/16/2023 Reason For Consultation: Choledocholithiasis. History Of Present Illness: This is the case of an 83-year-old patient admitted to the hospital with some short of breath and exacerbation of her COPD and asthma, but as a complete workup was done, the y noticed an incidental finding of choledocholithiasis. The patient had the cholecystectomy done mor e than 20 years ago at another institution. She is asymptomatic. No evidence of jaundice and she romero s not had any right upper quadrant abdominal pain. Allergies: REVIEWED; ASPIRIN, OXYCODONE, TETANUS, DIGITALIS. Medications: Include furosemide, Synthroid, Toprol, allopurinol, Omnicef, Medrol Dosepak. Past Medical History: Include asthma, COPD, MIs, hypothyroidism, dermoid cyst. Past Surgical History: Includes hysterectomy, bilateral mastectomy, cholecystectomy, appendectomy, C 3 and C4 fusion. Social History: She does not smoke. She does not drink alcohol. Review of Systems: Some cough. There is no shortness of breath at this moment. A 10 points otherwise unremarkable. Physical Examination: General: Patient is awake and alert. HEENT: Pupils are equal and reactive. Anicteric. Neck: Supple. Chest: Clear. Abdomen: Soft and depressible. No guarding or rebound. No peritoneal signs. Extremities: Good capillary refill. Laboratory Data: Blood work shows WBC count of 4.1 with hemoglobin of 11.3 and creatinine is 1.03, b ilirubin of 0.4, AST 24, ALT 19, alkaline phosphatase 113. CAT scan of the abdomen and pelvis interp reted by Dr. Hansen with multiple stones, a choledocholithiasis, markedly distended common bile duct a nd common hepatic duct. Assessment: This is an 83-year-old patient with incidental choledocholithiasis with no jaundice at t his moment and LFTs are normal. From the surgical standpoint, we will refer this patient to the GI d aida that when her lungs get improved, may have to do some workup on this patient trying to extract this common bile duct stone, so it does not cause any obstruction in the future. I am going to leave it up to his judgment. From the surgical standpoint, no planned intervention at this moment. KENNETH/BUTCH Voice ID: [id number] Report ID: [id number]
[2023-06-17 06:26] LABS: Absolute Lymphocytes (CBC) 0.8 K/uL (0.7-4.9); Hematocrit 30.3 % (36.0-45.0); Lymphocytes % 24.3 % (15.3-44.8); MCV 90.9 fL (80-100); MPV 8.8 fL (7.6-11.3); Platelets 126 thou/uL (152-406); RBC Red Blood Cell Count 3.33 M/uL (3.86-4.86)
[2023-06-17 06:33] LABS: Albumin 3.1 g/dL (3.4-5.0); Bilirubin Total 0.4 mg/dL (0.2-1.0); C-Reactive Protein 39.4 mg/L (<3.00); Potassium 3.4 mEq/L (3.5-5.1); Protein, Total 5.9 g/dL (6.4-8.2)
[2023-06-17] MEDS: MEMANTINE HCL 10 MG TABLET PO SCH ×2 (09:04→20:58)
[2023-06-17] MEDS: OSELTAMIVIR 30 MG CAP PO SCH ×2 (09:04→20:58)
[2023-06-17] MEDS: VITAMIN B COMPLEX 1 CAP PO SCH (09:04)
[2023-06-17] MEDS: LEVOTHYROXINE SOD 0.075 MG TAB PO SCH (09:04)
[2023-06-17] MEDS: ASCORBIC ACID 500 MG TABLET PO SCH (09:04)
[2023-06-17] MEDS: PANTOPRAZOLE 40MG TABLET PO SCH (09:04)
[2023-06-17] MEDS: ENOXAPARIN 40 MG/0.4 ML SQ SCH (09:05)
[2023-06-17] MEDS: NIRMATRELVIR/RITONAVIR TABLET PO SCH ×2 (09:07→20:58)
[2023-06-17] MEDS: ZINC SULFATE 220 MG CAP PO SCH (09:11)
--- NOTE | 2023-06-17 09:52 | P.PN ---
Date of Service: 06/17/23 Subjective: Feeling a little better, but still feeling weak / rundown Breathing a little more comfortably today 101.7 fever overnight ROS: 10 point ROS as noted above, otherwise negative Physical Exam: GEN: Alert, oriented, NAD HEENT: Normal conjunctiva, sclera anicteric CV: Regular rate and rhythm, no edema Pulm: Nonlabored respirations on room air, diminished at bases b/l ABD: Soft, nondistended, mild RUQ tenderness Neuro: Normal speech, normal affect Parra in place - placed in ED vitals reviewed Problem List: acute Covid-19 / Influenza B positive Distended CBD with multiple stones; incidental finding Chronic COPD / asthma Chronic CHF Hypothyroidism Hyperlipidemia Acute Covid-19 / Influenza B positive Chronic COPD / asthma tested positive for Covid and influenza Continue paxlovid, continue tamiflu continue symptomatic therapy with zinc, vitamin B & C febrile overnight 101.7, CRP slightly worse, no leukocytosis (06/17) Pulm consulted PT consult Distended CBD with multiple stones; incidental finding CT chest/abd (06/15): Markedly distended common bile duct and common hepatic duct, with a large burden of ductal calculi. s/p cholecystectomy. Colonic diverticulosis. Small pericardial effusion. Bilateral renal cortical hypoattenuating lesions, suggestive of cysts GI and general surgery consulted reports some R flank pain for 2 months, unclear if due to stones; pt is nonspecific when describing pain LFTs normal outpatient ERCP unless acutely obstructs / worsens continue PPI Chronic CHF Hypothyroidism Hyperlipidemia confirm home meds, restart as appropriate VTE: Lovenox Code: Full Dispo: Home with HH, ~1-2 days
--- NOTE | 2023-06-17 12:39 | P.CNS ---
Date of Consult: 06/17/23 Reason for Consult: Coronavirus infection COPD Chief Complaint: COVID-19 disease, flu infection. History of Present Illness: Patient is 83 years of age has a history of COPD admitted with generalized body ache lethargy pain with shortness of breath diagnosed with COPD she is doing better he denies any fever or chills and has never smoked Allergies aspirin [From Percodan] Allergy (Verified 12/15/14 06:19) Itching oxycodone HCl [From Percodan] Allergy (Verified 12/15/14 06:19) Itching oxycodone terephthalate [From Percodan] Allergy (Verified 12/15/14 06:19) Itching Tetanus Vaccines and Toxoid [Tetanus Vaccines & Toxoid] Allergy (Verified 12/15/14 06:19) Itching Digitalis Glycosides Adverse Reaction (Verified 12/15/14 06:19) Anaphylaxis digitalis Allergy (Uncoded 12/15/14 08:25) heart races Tetanus Vaccines & Toxoi Allergy (Uncoded 12/15/14 08:25) Unknown Home Medications: Metoprolol Succinate [Toprol Xl*] 50 mg PO DAILY 12/15/14 Simvastatin 20 mg PO BEDTIME 12/15/14 Gabapentin 800 mg PO TID 06/16/23 Levothyroxine [Synthroid] 75 mcg PO [id number] 06/16/23 Meclizine HCl 25 mg PO TID 06/16/23 Memantine HCl [Namenda] 10 mg PO BID 06/16/23 Pantoprazole [Protonix Tab] 40 mg PO DAILY 06/16/23 - Past Medical/Surgical History Diabetic: No -: COPD -: Asthma -: [place] -: Hypothyroidism -: Dermoid cyst -: Hysterectomy -: Hoang Masectomy -: Cholecystectomy -: appendectomy -: C3-C4 fusion -: L3 surgery Herniated disk -: Fractured humerus, fractured left foot -: Left vericose veins surgery - Social History Smoking Status: Unknown if ever smoked Alcohol use: No CD- Drugs: No Caffeine use: Yes Place of Residence: Home Review of Systems 10-point ROS is otherwise unremarkable General: Weakness Physical Examination Temp Pulse Resp BP Pulse Ox 99.5 F 68 20 168/77 H 96 06/17/23 08:00 06/17/23 08:00 06/17/23 08:00 06/17/23 08:00 06/17/23 08:00 General: Alert, Oriented x3 HEENT: Atraumatic Neck: Supple Respiratory: Clear to auscultation bilaterally Cardiovascular: No edema, Normal S1 S2 - Problems (1) Coronavirus infection Current Visit: Yes Status: Acute Plan: Patient is 83 years of age suddenly became sick more short of breath weakness diagnosed with coronavirus infection chemistries reviewed mildly neutropenic vital signs are all stable CT scan of the abdomen and pelvis IMPRESSION: Markedly distended common bile duct and common hepatic duct, with a large burden of ductal calculi. Status post cholecystectomy. Colonic diverticulosis. Small pericardial effusion. Bilateral renal cortical hypoattenuating lesions, suggestive of cysts, although not fully characterized. Labs reviewed no evidence of coronavirus pneumonia patient will need outpatient workup for her distended common bile duct (2) COPD (chronic obstructive pulmonary disease) Current Visit: Yes Status: Acute Plan: Patient has a history of COPD has never smoked most likely chronic obstructive asthma patient will need outpatient pulmonary function testing including a long- acting bronchodilator at the time of discharge
[2023-06-17] MEDS: DULERA 200/5 (MOMETASONE/FORMOTEROL) INHALER IH SCH ×2 (13:34→20:59)
[2023-06-17] MEDS ORDERED: MELATONIN 5 MG TABLET PO PRN (20:06)
[2023-06-18] MEDS: LEVOTHYROXINE SOD 0.075 MG TAB PO SCH (05:40)
[2023-06-18 05:55] LABS: Absolute Lymphocytes (CBC) 1.2 K/uL (0.7-4.9); Hematocrit 35.9 % (36.0-45.0); Lymphocytes % 40.2 % (15.3-44.8); MCV 89.6 fL (80-100); MPV 8.2 fL (7.6-11.3); Platelets 153 thou/uL (152-406)
[2023-06-18 06:09] LABS: Albumin 3.1 g/dL (3.4-5.0); Bilirubin Total 0.6 mg/dL (0.2-1.0); C-Reactive Protein 20.2 mg/L (<3.00); Magnesium 1.8 mg/dL (1.6-2.4); Potassium 3.2 mEq/L (3.5-5.1); Protein, Total 6.1 g/dL (6.4-8.2)
[2023-06-18] MEDS ORDERED: METOPROLOL TARTRATE 5 MG/5 ML INJ IV STA (08:32)
--- NOTE | 2023-06-18 08:34 | P.PN ---
Date of Service: 06/18/23 Subjective: Patient developed a-fib with RVR this morning. HR in 120-130s this morning Breathing okay on room air afebrile Patient states she fells some palpitations reports history of some tachycarrhythmia - "PACs I think" states she thinks she's heard of Afib before, but not necessarily sure she's been diagnosed with afib in the past ROS: 10 point ROS as noted above, otherwise negative Physical Exam: GEN: Alert, oriented, NAD HEENT: Normal conjunctiva, sclera anicteric CV: Regular rate and rhythm, no edema Pulm: Non-labored respirations on room air, diminished at bases b/l ABD: Soft, nondistended, nontender Neuro: Normal speech, normal affect Parra in place - placed in ED vitals reviewed Problem List: acute Covid-19 / Influenza B positive A-fib with RVR, new onset Distended CBD with multiple stones; incidental finding h/o prior [place] h/o DVT & PE (1985) Chronic COPD / asthma Chronic CHF Hypothyroidism Hyperlipidemia Acute Covid-19 / Influenza B positive Chronic COPD / asthma tested positive for Covid and influenza Continue paxlovid, continue tamiflu continue symptomatic therapy with zinc, vitamin B & C febrile overnight 101.7, CRP slightly worse, no leukocytosis (06/17) Pulm consulted PT consult A-fib with RVR, new onset h/o prior AK h/o DVT & PE (1985) Patient noted to become more tachycardic yesterday evening. Now in new onset a- fib with RVR. HR in 130s Reports history of prior AK when she was in her 20s. History of PE/DVT in 1985 per ER notes visit in 2014 Cardiology consulted No prior history of a-fib per chart Check EKG resume home metoprolol Distended CBD with multiple stones; incidental finding CT chest/abd (06/15): Markedly distended common bile duct and common hepatic duct, with a large burden of ductal calculi. s/p cholecystectomy. Colonic diverticulosis. Small pericardial effusion. Bilateral renal cortical hypoattenuating lesions, suggestive of cysts GI and general surgery consulted reports some R flank pain for 2 months, unclear if due to stones; pt is nonspecific when describing pain LFTs normal outpatient ERCP unless acutely obstructs / worsens continue PPI Chronic CHF Hypothyroidism Hyperlipidemia confirm home meds, restart as appropriate VTE: Lovenox Code: Full Dispo: Home with HH, ~1-2 days
[2023-06-18] MEDS: ENOXAPARIN 40 MG/0.4 ML SQ SCH (09:31)
[2023-06-18] MEDS: PANTOPRAZOLE 40MG TABLET PO SCH (09:31)
[2023-06-18] MEDS: OSELTAMIVIR 30 MG CAP PO SCH ×2 (09:32→19:52)
[2023-06-18] MEDS: MEMANTINE HCL 10 MG TABLET PO SCH ×2 (09:32→19:52)
[2023-06-18] MEDS: VITAMIN B COMPLEX 1 CAP PO SCH (09:32)
[2023-06-18] MEDS: METOPROLOL XL 50 MG TAB PO SCH (09:32)
[2023-06-18] MEDS: ASCORBIC ACID 500 MG TABLET PO SCH (09:32)
[2023-06-18] MEDS: DULERA 200/5 (MOMETASONE/FORMOTEROL) INHALER IH SCH ×2 (09:33→19:52)
[2023-06-18] MEDS: NIRMATRELVIR/RITONAVIR TABLET PO SCH ×2 (09:33→19:52)
--- NOTE | 2023-06-18 13:33 | EKG ---
Test Date: 2023-06-18 Test Time: 08:08:16 Advice Clerk: DANNY MEASUREMENT RESULTS: Intervals: Rate: 142 FL: QRSD: 86 QT: 322 QTc: 495 [place]: P: FL: QRS: 20 T: 70 INTERPRETIVE STATEMENTS: Atrial fibrillation with rapid ventricular response ST abnormality, possible digitalis effect Abnormal ECG Compared to ECG 06/15/2023 19:13:19 Sinus tachycardia no longer present First degree AV block no longer present Possible ischemia no longer present ST (T wave) deviation still present Electronically Signed On 06-18-23 13:24:26 PRIVATE EQUITY ANALYST by Mario Hoskins
--- NOTE | 2023-06-18 13:36 | EKG ---
Test Date: 2023-06-15 Test Time: 19:13:19 Supervisor Pile Driving: OLIVEIR MEASUREMENT RESULTS: Intervals: Rate: 104 OK: 210 QRSD: 92 QT: 342 QTc: 449 Sp[place]y: P: 51 OK: 210 QRS: 53 T: 73 INTERPRETIVE STATEMENTS: Sinus tachycardia with 1st degree AV block ST & T wave abnormality, consider anterior ischemia Abnormal ECG Compared to ECG 05/23/2018 10:01:37 ST (T wave) deviation now present Possible ischemia now present Sinus bradycardia no longer present Electronically Signed On 06-18-23 13:25:06 DECKHAND MAINTENANCE by Mario Hoskins
[2023-06-19] MEDS: ACETAMINOPHEN 325 MG TABLET PO PRN (01:54)
[2023-06-19 03:26] LABS: MPV 8.4 fL (7.6-11.3); Platelets 147 thou/uL (152-406); RBC Red Blood Cell Count 3.82 M/uL (3.86-4.86)
[2023-06-19 03:36] LABS: Potassium 3.2 mEq/L (3.5-5.1)
[2023-06-19] MEDS: LEVOTHYROXINE SOD 0.075 MG TAB PO SCH (05:05)
[2023-06-19] MEDS ORDERED: lisinopriL 10 MG TAB PO SCH (07:00)
--- NOTE | 2023-06-19 08:13 | P.PN ---
Subjective Date of Service: 06/19/23 Chief Complaint: COVID-19 disease, flu infection. Subjective: Improving (Patient is doing better no new complaint abdominal and flank pain is improved) Review of Systems Unremarkable General: Weakness Physical Examination - Vital Signs Temperature: 97.5 F Blood Pressure: 180/77 Pulse: 56 Respirations: 18 Pulse Ox (%): 100 - Physical Exam General: Alert, In no apparent distress, Oriented x3 HEENT: Atraumatic Neck: Supple Respiratory: Clear to auscultation bilaterally Cardiovascular: No edema, Regular rate/rhythm, Normal S1 S2 Assessment And Plan - Current Problems (Diagnosis) (1) Coronavirus infection Current Visit: Yes Status: Acute Plan: Patient is doing much better oxygenation satisfactory blood pressure is elevated mildly hypokalemic neutropenia has not changed patient will need ERCP as an outpatient I (2) COPD (chronic obstructive pulmonary disease) Current Visit: Yes Status: Acute Plan: Patient has a history of COPD has never smoked most likely chronic obstructive asthma patient will need outpatient pulmonary function testing including a long- acting bronchodilator at the time of discharge prescription of Anoro sent
[2023-06-19] MEDS: DULERA 200/5 (MOMETASONE/FORMOTEROL) INHALER IH SCH (09:00)
[2023-06-19] MEDS: NIRMATRELVIR/RITONAVIR TABLET PO SCH (10:25)
[2023-06-19] MEDS: ENOXAPARIN 40 MG/0.4 ML SQ SCH (10:26)
[2023-06-19] MEDS: MEMANTINE HCL 10 MG TABLET PO SCH (10:26)
[2023-06-19] MEDS: VITAMIN B COMPLEX 1 CAP PO SCH (10:26)
[2023-06-19] MEDS: ASCORBIC ACID 500 MG TABLET PO SCH (10:27)
[2023-06-19] MEDS: OSELTAMIVIR 30 MG CAP PO SCH (10:27)
[2023-06-19] MEDS: PANTOPRAZOLE 40MG TABLET PO SCH (10:27)
[2023-06-19] MEDS: METOPROLOL XL 50 MG TAB PO SCH (10:27)
--- NOTE | 2023-06-19 11:01 | P.PN ---
Date of Service: 06/19/23 Subjective: Feeling a little better today Breathing okay on room air currently in normal sinus rhythm, converted few hours after going into a-fib yesterday before medications BP slighty more elevated ~180s overnight / today. afebrile ROS: 10 point ROS as noted above, otherwise negative Physical Exam: GEN: Alert, oriented, NAD HEENT: Normal conjunctiva, sclera anicteric CV: Regular rate and rhythm, no edema Pulm: Non-labored respirations on room air, diminished at bases b/l ABD: Soft, nondistended, nontender Neuro: Normal speech, normal affect Parra in place - placed in ED vitals reviewed Problem List: acute Covid-19 / Influenza B positive A-fib with RVR, new onset Distended CBD with multiple stones; incidental finding h/o prior [place] h/o DVT & PE (1985) Chronic COPD / asthma Chronic CHF Hypothyroidism Hyperlipidemia Acute Covid-19 / Influenza B positive Chronic COPD / asthma tested positive for Covid and influenza Continue paxlovid, continue tamiflu continue symptomatic therapy with zinc, vitamin B & C febrile overnight 101.7, CRP slightly worse, no leukocytosis (06/17) Pulm consulted PT consult A-fib with RVR, new onset h/o prior PA h/o DVT & PE (1985) Patient noted to become more tachycardic 06/17 evening. 06/18 morning converted into onset a-fib with RVR. HR in 130s Reports history of prior PA when she was in her 20s. History of PE/DVT in 1985 per ER notes visit in 2014 Cardiology consulted No prior history of a-fib per chart continue home metoprolol HR improved in 50-60s now. Converted back into sinus rhythm few hours after going into a-fib yesterday before medications no further episodes of a-fib Distended CBD with multiple stones; incidental finding CT chest/abd (06/15): Markedly distended common bile duct and common hepatic duct, with a large burden of ductal calculi. s/p cholecystectomy. Colonic diverticulosis. Small pericardial effusion. Bilateral renal cortical hypoattenuating lesions, suggestive of cysts GI and general surgery consulted reports some R flank pain for 2 months, unclear if due to stones; pt is nonspecific when describing pain LFTs normal outpatient ERCP unless acutely obstructs / worsens continue PPI Hypertension Start lisinopril. Monitor BP closely Chronic CHF Hypothyroidism Hyperlipidemia confirm home meds, restart as appropriate VTE: Lovenox Code: Full Dispo: Home with HH, ~1 day
[2023-06-19 13:26] VITALS: TEMP 97.9
[2023-06-19] MEDS ORDERED: POTASSIUM 25 MEQ EFFERV TAB PO ONE (13:57)
[2023-06-19 16:41] VITALS: BP 178/74; O2SAT 100
--- NOTE | 2023-06-19 17:06 | P.DS ---
Admission Date: 06/15/23 Discharge Date: 06/19/23 Disposition: ROUTINE DISCHARGE Discharge Condition: GOOD Reason for Admission: COVID-19 disease, flu infection. Consultations: Cardiology - Dr. Hoskins GI - Dr. Davidson Pulmonology - Dr. Cooper General surgery - Dr. Locke Brief History of Present Illness: 83yo F, PMH: hypothyroidism, hypertension, hyperlipidemia Patient who had come into the ED with complaint of general body headache and lethargy. She reported also some shortness of breath and she does have a history of COPD/asthma. She was worked up and found to have COVID-19 disease and also a flu test, positive. She denied overt episode of fever, chills, rigor, nausea, vomiting, chronic productive cough. She was admitted for symptomatic therapy and monitoring. Hospital Course: Problem List: acute Covid-19 / Influenza B positive A-fib with RVR, new onset Distended CBD with multiple stones; incidental finding h/o prior [place] h/o DVT & PE (1985) Chronic COPD / asthma Chronic CHF Hypothyroidism Hyperlipidemia Patient presented with generalized weakness, flulike symptoms. Patient tested positive for both Covid-19 and influenza B. CXR negative for any acute findings. Dr. Cooper - wood carver hand was consulted. Patient received 4 days of paxlovid / tamiflu and is to complete ~1 more day on discharge for total of ~5 days. Patient was feeling better, afebrile for > 48 hours, breathing comfortably on room air, and was deemed stable for discharge. Recommend to follow up with Dr. Cooper / pulmonology as outpatient for further pulmonary function testings. Prescription for Anoro Ellipta sent per Dr. Cooper on discharge. Incidental CT chest/abdomen findings: Markedly distended common bile duct and common hepatic duct, with a large burden of ductal calculi. s/p cholecystectomy. Colonic diverticulosis. Small pericardial effusion. Bilateral renal cortical hypoattenuating lesions, suggestive of cysts. GI and general surgery were consulted. Patient reported ongoing right flank pain for ~2 months however unclear if due to stones. LFTs were normal throughout hospitalization. Advised to follow up with GI as outpatient for further work up / discuss possible ERCP for further evaluation. During her hospitalization, patient noted to convert into new onset a-fib with RVR 2/1 morning. Hr in 120-130s. Cardiology was consulted. Patient noted to convert back into normal sinus rhythm the same day prior to administration of IV metoprolol. Heart rate improved and remained in 60-80s after converting back into sinus rhythm and restarting home metoprolol. No further episodes of a-fib. Given her comorbidities, she is prescribed xarelto for anticoagulation for afib / stroke prevention. She reported history of DVT and no complications from prior blood thinners. Recommend to follow up with cardiology as outpatient in the near future for further work up / discussion. She initially had low blood pressure on admission, but this improved, and eventually became hypertensive. Lisinopril 10mg was started, and will be continued on discharge. Medications: Paxlovid x1 day Tamiflu x1 day Anoro Ellipta - 1 puff daily Xarelto 20mg daily at supper Lisinopril 10mg daily for blood pressure continue other home meds as previously prescribed. Follow up: PCP 3-5 days Pulmonology in 1-2 weeks Cardiology 2-4 weeks Physical Exam: GEN: Alert, oriented, NAD HEENT: Normal conjunctiva, sclera anicteric CV: Regular rate and rhythm, no edema Pulm: Non-labored respirations on room air, diminished at bases b/l ABD: Soft, nondistended, nontender Neuro: Normal speech, normal affect Vital Signs/Physical Exam: Temp Pulse Resp BP Pulse Ox 97.9 F 67 20 178/74 H 100 06/19/23 16:00 06/19/23 16:00 06/19/23 16:00 06/19/23 16:00 06/19/23 16:00 Laboratory Data at Discharge: WBC 3.20 thou/uL (4.3-10.9) L 06/19/23 02:13 Hgb 11.4 g/dL (12.0-15.0) L 06/19/23 02:13 Hct 34.0 % (36.0-45.0) L 06/19/23 02:13 Plt Count 147 thou/uL (152-406) L 06/19/23 02:13 PT 12.3 SECONDS (9.5-12.5) 06/15/23 19:35 INR 1.12 06/15/23 19:35 APTT 34.4 SECONDS (24.3-36.9) 06/15/23 19:35 Sodium 141 mEq/L (136-145) 06/19/23 02:13 Potassium 3.2 mEq/L (3.5-5.1) L 06/19/23 02:13 BUN 22 mg/dL (7-18) H 06/19/23 02:13 Creatinine 0.83 mg/dL (0.55-1.02) 06/19/23 02:13 Glucose 76 mg/dL (74-106) 06/19/23 02:13 Magnesium 2.0 mg/dL (1.6-2.4) 06/19/23 02:13 Total Bilirubin 0.6 mg/dL (0.2-1.0) 06/18/23 05:26 AST 33 U/L (15-37) 06/18/23 05:26 ALT 19 U/L (13-56) 06/18/23 05:26 Alkaline Phosphatase 78 U/L (45-117) 06/18/23 05:26 Home Medications: Metoprolol Succinate [Toprol Xl*] 50 mg PO DAILY 12/15/14 Simvastatin 20 mg PO BEDTIME 12/15/14 Gabapentin 800 mg PO TID 06/16/23 Levothyroxine [Synthroid*] 75 mcg PO [id number] 06/16/23 Meclizine HCl 25 mg PO TID 06/16/23 Memantine HCl [Namenda*] 10 mg PO BID 06/16/23 Pantoprazole [Protonix Tab*] 40 mg PO DAILY 06/16/23 Nirmatrelvir/Ritonavir [Paxlovid 150-100 mg Pack (Eua)] 1 tab PO BID 06/19/23 Oseltamivir Phosphate [Tamiflu] 30 mg PO BID #2 cap 06/19/23 Oseltamivir Phosphate [Tamiflu] 30 mg PO BID 1 Days #2 cap 06/19/23 Rivaroxaban [Xarelto] 20 mg PO DAILY AT SUPPER 30 Days #30 tab 06/19/23 Rivaroxaban [Xarelto] 20 mg PO DAILY AT SUPPER 30 Days #30 tab 06/19/23 Umeclidinium Brm/Vilanterol Tr [Anoro Ellipta 62.5-25 Mcg INH] 1 each IH DAILY 30 Days #1 inh 06/19/23 Umeclidinium Brm/Vilanterol Tr [Anoro Ellipta 62.5-25 Mcg INH] 1 each IH DAILY 30 Days #30 aero 06/19/23 lisinopriL [Lisinopril] 10 mg PO DAILY 30 Days #30 tab 06/19/23 lisinopriL [Prinivil*] 10 mg PO DAILY 30 Days #30 tab 06/19/23 New Medications: Umeclidinium Brm/Vilanterol Tr [Anoro Ellipta 62.5-25 Mcg INH] 1 each IH DAILY 30 Days #30 aero Umeclidinium Brm/Vilanterol Tr [Anoro Ellipta 62.5-25 Mcg INH] 1 each IH DAILY 30 Days #1 inh lisinopriL [Lisinopril] 10 mg PO DAILY 30 Days #30 tab lisinopriL [Prinivil*] 10 mg PO DAILY 30 Days #30 tab Oseltamivir Phosphate [Tamiflu] 30 mg PO BID 1 Days #2 cap Oseltamivir Phosphate [Tamiflu] 30 mg PO BID #2 cap Rivaroxaban [Xarelto] 20 mg PO DAILY AT SUPPER 30 Days #30 tab Rivaroxaban [Xarelto] 20 mg PO DAILY AT SUPPER 30 Days #30 tab Physician Discharge Instructions: PROBLEM: COVID-19 Influenza GOAL: Clear understanding of disease process INSTRUCTIONS: Diet: Regular Activity: DME DME: Date Ordered: 06/16/23 Name of Company: [facility] Patient COMMUNITY SERVICES Services Needed: Home Health Name of Company: [facility] Date or Referral: 06/16/23 IMMUNIZATION Influenza Vaccine Indicated: No Influenza Vaccine Given: Date Given: Pneumonia Vaccine Indicated: No Pneumonia Vaccine Given: Date Given: Patient presented with generalized weakness, flulike symptoms. Patient tested positive for both Covid-19 and influenza B. CXR negative for any acute findings. Dr. Cooper - wood carver hand was consulted. Patient received 4 days of paxlovid / tamiflu and is to complete ~1 more day on discharge for total of ~5 days. Patient was feeling better, afebrile for > 48 hours, breathing comfortably on room air, and was deemed stable for discharge. Recommend to follow up with Dr. Cooper / pulmonology as outpatient for further pulmonary function testings. Prescription for Anoro Ellipta sent per Dr. Cooper on discharge. Incidental CT chest/abdomen findings: Markedly distended common bile duct and common hepatic duct, with a large burden of ductal calculi. s/p cholecystectomy. Colonic diverticulosis. Small pericardial effusion. Bilateral renal cortical hypoattenuating lesions, suggestive of cysts. GI and general surgery were consulted. Patient reported ongoing right flank pain for ~2 months however unclear if due to stones. LFTs were normal throughout hospitalization. Advised to follow up with GI as outpatient for further work up / discuss possible ERCP for further evaluation. During her hospitalization, patient noted to convert into new onset a-fib with RVR 2/1 morning. Hr in 120-130s. Cardiology was consulted. Patient noted to convert back into normal sinus rhythm the same day prior to administration of IV metoprolol. Heart rate improved and remained in 60-80s after converting back into sinus rhythm and restarting home metoprolol. No further episodes of a-fib. Given her comorbidities, she is prescribed xarelto for anticoagulation for afib / stroke prevention. She reported history of DVT and no complications from prior blood thinners. Recommend to follow up with cardiology as outpatient in the near future for further work up / discussion. She initially had low blood pressure on admission, but this improved, and eventually became hypertensive. Lisinopril 10mg was started, and will be continued on discharge. Medications: Paxlovid x1 day Tamiflu x1 day Anoro Ellipta - 1 puff daily Xarelto 20mg daily at supper Lisinopril 10mg daily for blood pressure continue other home meds as previously prescribed. Follow up: PCP 3-5 days Pulmonology in 1-2 weeks Cardiology 2-4 weeks Followup: Erwin Moreno MD [Primary Care Provider] - Time spent managing pt's care (in minutes): 45
--- NOTE | 2023-06-19 19:02 | CON ---
Date of Consultation: 06/18/2023 Reason For Consultation: Atrial fibrillation with rapid ventricular response. History Of Present Illness: This is an 83-year-old female with past medical history of hypertension, CHF, dyslipidemia, COPD, presented to the emergency room with altered mental status, fever, decrease d urination. Heart rate was 130. She was in atrial fibrillation with RVR, used metoprolol and she c onverted to sinus rhythm. I was consulted for atrial fibrillation. I saw her by bedside, she was in sinus rhythm and doing well. No chest pain. No shortness of breath. No other complaints. Past Medical History: As outlined above in the HPI. Medications: Refer to conciliation sheet for detailed list. Allergies: ASPIRIN, OXYCODONE. Family History: No premature coronary artery disease or cancer. Social History: She does not drink, use any drugs. Review of Systems: All systems reviewed and they were negative except as mentioned in the HPI. Physical Examination: Vital Signs: Reviewed. Head and Neck: Pupils are equal, reactive to light. Intact eye movements. No JVD. No cervical lym phadenopathy. Neck: Supple. Thyroid is not enlarged. Lungs: Clear to auscultation bilaterally. No rhonchi, rales, or crackles. No accessory muscle use. Heart: Regular rate and rhythm. No extra sounds. Abdomen: Soft, nontender. Bowel sounds positive. No organomegaly. No masses or hernia. No rigidi ty or rebound. Extremities: No edema, clubbing, cyanosis. Intact pulses. Skin: No rashes. Neurologic: Alert, awake, oriented x3. No acute focal deficits appreciated. Investigations: Labs were reviewed. Assessment And Recommendation: 1.Atrial fibrillation with rapid ventricular response, likely due to COVID, converted to sinus rhyth m. Continue metoprolol. She is on Toprol-XL 50 mg daily. Recommend also to add Eliquis 5 mg twice a day for stroke prevention and recommended to do CT angiogram to look for pulmonary embolism. 2.COVID 19 and hemodynamically and clinically stable. Continue current management. Cardiology will sign off and to follow up as an outpatient. SR/MODL Voice ID: [id number] Report ID: [id number]
== END 2023-06-19 16:20 | disposition home or self-care (01) | DRG 193 ==
LOC: ER 18:48 → ERHOLD 23:53 → 4TH 06-16 10:54
PROVIDERS: ADMIT Internal Medicine Nephrology; ATTEND Hospitalist
DX: J10.1 Influenza due to other identified influenza virus with other respiratory manifestations (principal); U07.1 COVID-19; I31.39 Other pericardial effusion (noninflammatory); E86.0 Dehydration; E03.9 Hypothyroidism, unspecified; D70.9 Neutropenia, unspecified; I11.0 Hypertensive heart disease with heart failure; I50.9 Heart failure, unspecified; E78.00 Pure hypercholesterolemia, unspecified; E87.6 Hypokalemia; I48.91 Unspecified atrial fibrillation; K76.89 Other specified diseases of liver; J44.9 Chronic obstructive pulmonary disease, unspecified; K57.30 Diverticulosis of large intestine without perforation or abscess without bleeding; I25.2 Old myocardial infarction; Z88.1 Allergy status to other antibiotic agents; Z88.5 Allergy status to narcotic agent; Z88.7 Allergy status to serum and vaccine; Z88.2 Allergy status to sulfonamides; Z88.6 Allergy status to analgesic agent; Z90.49 Acquired absence of other specified parts of digestive tract; Z90.13 Acquired absence of bilateral breasts and nipples; Z79.890 Hormone replacement therapy; Z86.718 Personal history of other venous thrombosis and embolism; Z91.048 Other nonmedicinal substance allergy status; Z86.711 Personal history of pulmonary embolism; Z90.710 Acquired absence of both cervix and uterus; Z79.899 Other long term (current) drug therapy
CPT/HCPCS: 36415; 71045; 71250; 74176; 80048; 80053; 80076; 81001; 83605; 83735; 83880; 84145; 84484; 85025; 85027; 85610; 85730; 86140; 87040; 87804; 87811; 93005; 97110; 97116; 97161; 97530; J0696; J1650; J2270; J2765; J3535; J7030; J7040; J8499; P9047

== ENCOUNTER → 2023-07-01 | Emergency (ER) | payer OTHER ==
--- OUTSIDE RECORDS SUMMARY | 2023-07-01 15:41 | XMS REPORT | Continuity of Care Document ---
Author Name Unknown Address [address] [facility] [address] [place] [address] [facility] Address [address] 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 Name Role Phone LENARD GARG Primary Care Physician Unavail able Radiology Attending Clinician Unavailable RADIOLOGY Attending Clinician Unavailable Doctor Unassigned, [place] Attending Clinician U navailable IRIS_TERRY Attending Clinician Unavailab le Rikki Steele Attending Clinician [phone] JOCELINE EDWARDS Admitting Clinician Unavailable GENNARO BIRD Admitting Clinician Unavail able ANKUSH Admitting Clinician Unavailab le Payers Payer Name Policy Type Policy Number Effective Date Expirati on Date Source AET[employer] INDEMNITY [id number] 2000 00:00:00 [place]: [id number] 1982 00:00:00 [employer]ETNA [id number] [id number] 00:00:00 Problems Condition Name Condition Details Condition Category Status Onset Date Resolution Date Last Treatment Date Treating Clinician Comments Source Acquired hypothyroi dism Acquired Hypothyroi dism Problem Active 11-09 00:00: 00 [facility] Mixed hyperlipid emia Mixed Hyperlipid emia Problem Active 11-09 00:00: 00 [facility] Chronic gouty arthritis Chronic Gouty Arthritis Problem Active 11-09 00:00: 00 [facility] Seizure disorder Seizure Disorder Problem Active 11-09 00:00: 00 [facility] Allergic rhinitis Allergic Rhinitis Problem Active 11-09 00:00: 00 [facility] Gastroesop hageal reflux disease without esophagiti s Gastroesop hageal Reflux Disease without Esophagiti s Problem Active 11-09 00:00: 00 [facility] Postmenopa usal osteoporos is Postmenopa usal Osteoporos is Problem Active 11-09 00:00: 00 [facility] Vertigo Vertigo Problem Active 10-13 00:00: 00 [facility] Familial combined hyperlipid emia Familial Combined Hyperlipid emia Problem Active [facility] Gouty arthropath y Gouty Arthropath y Problem Active [facility] 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 Problem Active [facility] Legal blindness [facility] Legal Blindness [facility] Problem Active [facility] Bradycardi a Bradycardi a Problem Active [facility] Seasonal allergic rhinitis Seasonal Allergic Rhinitis Problem Active [facility] Chronic obstructiv e lung disease Chronic Obstructiv e Lung Disease Problem Active [facility] 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 Problem Active [facility] 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 Problem Active [facility] Neurogenic bladder Neurogenic Bladder Problem Active [facility] Onychia of finger Onychia of Finger Problem Active [facility] Onychia of toe Onychia of Toe Problem Active [facility] Osteoarthr itis of multiple joints Osteoarthr itis of Multiple Joints Problem Active [facility] Prolapsed lumbar interverte bral disc Prolapsed Lumbar Interverte bral Disc Problem Active [facility] Tachycardi a Tachycardi a Problem Active [facility] Strain of back muscle Strain of Back Muscle Problem Active [facility] History of gastrointe stinal disease History of Gastrointe stinal Disease Problem Active [facility] Pain of right shoulder joint Pain of Right Shoulder Joint Problem Active [facility] Screening status Screening Status Problem Active [facility] Allergies, Adverse Reactions, Alerts Allergy Name Allergy Type Status Severity Reaction(s) Onset Date Inactive Date Treating Clinician Comments Source DIGITALI S LEAF DRUG INGREDI Active Unknown-Cmnt 2017-05 00:00: 00 [facility] LATEX DRUG INGREDI Active Rash 2017-05 00:00: 00 [facility] OXYCODON E DRUG INGREDI Active Unknown-Cmnt 2017-05 00:00: 00 [facility] OXYCODON E HCL DRUG INGREDI Active Unknown-Cmnt 2017-05 00:00: 00 [facility] OXYCODON E TEREPHTH ALATE DRUG INGREDI Active Unknown-Cmnt 2017-05 00:00: 00 [facility] TETANUS TOXOID ADSORBED DRUG Active Unknown-Cmnt 2017-05 00:00: 00 [facility] TETANUS TOXOID FLUID DRUG Active Unknown-Cmnt 2017-05 00:00: 00 [facility] Digitali s [place] Propensi ty to adverse reaction s Active Unknown - See comments 2017-05 00:00: 00 [facility] Latex Propensi ty to adverse reaction s Active Rash 2017-05 00:00: 00 [facility] Oxycodon e Propensi ty to adverse reaction s Active Unknown - See comments 2017-05 00:00: 00 [facility] Oxycodon e Hcl Propensi ty to adverse reaction s Active Unknown - See comments 2017-05 00:00: 00 [facility] Oxycodon e Terephth alate Propensi ty to adverse reaction s Active Unknown - See comments 2017-05 00:00: 00 [facility] Tetanus Toxoid Adsorbed Propensi ty to adverse reaction s Active Unknown - See comments 2017-05 00:00: 00 [facility] Tetanus Toxoid Fluid Propensi ty to adverse reaction s Active Unknown - See comments 2017-05 00:00: 00 [facility] Aspirin Allergy to substanc e Active [facility] [place] Allergy to substanc e Active [facility] Oxycodon e Allergy to substanc e Active [facility] Tetanus Toxoid, Adsorbed Allergy to substanc e Active [facility] Social History Social Habit Start Date Stop Date Quantity Comments Source Exposure to SARS-CoV-2 (event) 2022-01-12 00:00:00 2022-01-22 11:51:00 Not sure [facility] Alcohol intake 2018-04-16 00:00:00 2018-04-16 00:00:00 Current non-drinker of alcohol (finding) [facility] Sex Assigned At 1940 00:00:00 1940 00:00:00 [facility] Smoking Status Start Date Stop Date Source Never Smoker [facility] Medications Ordered Medication Name Filled Medication Name Start Date Stop Date Current Medication? Ordering Clinician Indication Dosage Frequency Signature (SIG) Comments Components Source ipratropium 0.02 % nebulizer solution 2017-05 20:51: 32 Yes .5mg Inhale 0.5 mg. [facility] ketoconazol e 2 % cream 2017-05 20:51: 32 Yes Apply to area(s) daily. [facility] ipratropium 0.02 % nebulizer solution 2017-05 20:51: 32 Yes .5mg Inhale 0.5 mg. [facility] ketoconazol e 2 % cream 2017-05 20:51: 32 Yes Apply to area(s) daily. [facility] ipratropium 0.02 % nebulizer solution 2017-05 20:51: 32 Yes .5mg Inhale 0.5 mg. [facility] ketoconazol e 2 % cream 2017-05 20:51: 32 Yes Apply to area(s) daily. [facility] ipratropium 0.02 % nebulizer solution 2017-05 20:51: 32 Yes .5mg Inhale 0.5 mg. [facility] ketoconazol e 2 % cream 2017-05 20:51: 32 Yes Apply to area(s) daily. [facility] fluticasone 50 mcg/actuati on nasal spray 2017-05 20:51: 31 Yes Use in each nostril daily. [facility] budesonide 0.5 mg/2 mL nebulizer solution 2017-05 20:51: 31 Yes .5mg Inhale 0.5 mg daily. [facility] albuterol 2.5 mg /3 mL (0.083 %) nebulizer solution 2017-05 20:51: 31 Yes 2.5mg Inhale 2.5 mg every 4 (four) hours as needed for Wheezing or Shortness of Breath. [facility] fl[facility] mcg/actuati on nasal spray 2017-05 20:51: 31 Yes Use in each nostril daily. [facility] budesonide 0.5 mg/2 mL nebulizer solution 2017-05 20:51: 31 Yes .5mg Inhale 0.5 mg daily. [facility] 2.5 mg /3 mL (0.083 %) nebulizer solution 2017-05 20:51: 31 Yes 2.5mg Inhale 2.5 mg every 4 (four) hours as needed for Wheezing or Shortness of Breath. [facility] fluticasone 50 mcg/actuati on nasal spray 2017-05 20:51: 31 Yes Use in each nostril daily. [facility] budesonide 0.5 mg/2 mL nebulizer solution 2017-05 20:51: 31 Yes .5mg Inhale 0.5 mg daily. [facility] albuterol 2.5 mg /3 mL (0.083 %) nebulizer solution 2017-05 20:51: 31 Yes 2.5mg Inhale 2.5 mg every 4 (four) hours as needed for Wheezing or Shortness of Breath. [facility] fluticasone 50 mcg/actuati on nasal spray 2017-05 20:51: 31 Yes Use in each nostril daily. [facility] budesonide 0.5 mg/2 mL nebulizer solution 2017-05 20:51: 31 Yes .5mg Inhale 0.5 mg daily. [facility] albuterol 2.5 mg /3 mL (0.083 %) nebulizer solution 2017-05 20:51: 31 Yes 2.5mg Inhale 2.5 mg every 4 (four) hours as needed for Wheezing or Shortness of Breath. [facility] ubidecareno ne (COQ-10 ORAL) 2017-05 20:48: 44 Yes Take by mouth. [facility] aspirin (ADULT LOW DOSE ASPIRIN) 81 mg EC tablet 2017-05 20:48: 44 Yes 162mg Take 162 mg by mouth daily. [facility] albuterol sulfate 90 mcg/actuati on AePB 2017-05 20:48: 44 Yes Inhale. [facility] ubidecareno ne (COQ-10 ORAL) 2017-05 20:48: 44 Yes Take by mouth. [facility] (ADULT LOW DOSE ASPIRIN) 81 mg EC tablet 2017-05 20:48: 44 Yes 162mg Take 162 mg by mouth daily. [facility] albuterol sulfate 90 mcg/actuati on AePB 2017-05 20:48: 44 Yes Inhale. [facility] ubidecareno ne (COQ-10 ORAL) 2017-05 20:48: 44 Yes Take by mouth. [facility] aspirin (ADULT LOW DOSE ASPIRIN) 81 mg EC tablet 2017-05 20:48: 44 Yes 162mg Take 162 mg by mouth daily. [facility] albuterol sulfate 90 mcg/actuati on AePB 2017-05 20:48: 44 Yes Inhale. [facility] ubidecareno ne (COQ-10 ORAL) 2017-05 20:48: 44 Yes Take by mouth. [facility] aspirin (ADULT LOW DOSE ASPIRIN) 81 mg EC tablet 2017-05 20:48: 44 Yes 162mg Take 162 mg by mouth daily. [facility] albuterol sulfate 90 mcg/actuati on AePB 2017-05 20:48: 44 Yes Inhale. [facility] ipratropium 0.02 % nebulizer solution 2017-05 14:51: 32 Yes .5mg Inhale 0.5 mg. [facility] ketoconazol e 2 % cream 2017-05 14:51: 32 Yes Apply to area(s) daily. [facility] ipratropium 0.02 % nebulizer solution 2017-05 14:51: 32 Yes .5mg Inhale 0.5 mg. [facility] ketoconazol e 2 % cream 2017-05 14:51: 32 Yes Apply to area(s) daily. [facility] ipratropium 0.02 % nebulizer solution 2017-05 14:51: 32 Yes .5mg Inhale 0.5 mg. [facility] ketoconazol e 2 % cream 2017-05 14:51: 32 Yes Apply to area(s) daily. [facility] ipratropium 0.02 % nebulizer solution 2017-05 14:51: 32 Yes .5mg Inhale 0.5 mg. [facility] ketoconazol e 2 % cream 2017-05 14:51: 32 Yes Apply to area(s) daily. [facility] ipratropium 0.02 % nebulizer solution 2017-05 14:51: 32 Yes .5mg Inhale 0.5 mg. [facility] ketoconazol e 2 % cream 2017-05 14:51: 32 Yes Apply to area(s) daily. [facility] ipratropium 0.02 % nebulizer solution 2017-05 14:51: 32 Yes .5mg Inhale 0.5 mg. [facility] ketoconazol e 2 % cream 2017-05 14:51: 32 Yes Apply to area(s) daily. [facility] ipratropium 0.02 % nebulizer solution 2017-05 14:51: 32 Yes .5mg Inhale 0.5 mg. [facility] ketoconazol e 2 % cream 2017-05 14:51: 32 Yes Apply to area(s) daily. [facility] ipratropium 0.02 % nebulizer solution 2017-05 14:51: 32 Yes .5mg Inhale 0.5 mg. [facility] ketoconazol e 2 % cream 2017-05 14:51: 32 Yes Apply to area(s) daily. [facility] fluticasone 50 mcg/actuati on nasal spray 2017-05 14:51: 31 Yes Use in each nostril daily. [facility] budesonide 0.5 mg/2 mL nebulizer solution 2017-05 14:51: 31 Yes .5mg Inhale 0.5 mg daily. [facility] albuterol 2.5 mg /3 mL (0.083 %) nebulizer solution 2017-05 14:51: 31 Yes 2.5mg Inhale 2.5 mg every 4 (four) hours as needed for Wheezing or Shortness of Breath. [facility] fluticasone 50 mcg/actuati on nasal spray 2017-05 14:51: 31 Yes Use in each nostril daily. [facility] budesonide 0.5 mg/2 mL nebulizer solution 2017-05 14:51: 31 Yes .5mg Inhale 0.5 mg daily. [facility] albuterol 2.5 mg /3 mL (0.083 %) nebulizer solution 2017-05 14:51: 31 Yes 2.5mg Inhale 2.5 mg every 4 (four) hours as needed for Wheezing or Shortness of Breath. [facility] fluticasone 50 mcg/actuati on nasal spray 2017-05 14:51: 31 Yes Use in each nostril daily. [facility] budesonide 0.5 mg/2 mL nebulizer solution 2017-05 14:51: 31 Yes .5mg Inhale 0.5 mg daily. [facility] albuterol 2.5 mg /3 mL (0.083 %) nebulizer solution 2017-05 14:51: 31 Yes 2.5mg Inhale 2.5 mg every 4 (four) hours as needed for Wheezing or Shortness of Breath. [facility] fluticasone 50 mcg/actuati on nasal spray 2017-05 14:51: 31 Yes Use in each nostril daily. [facility] budesonide 0.5 mg/2 mL nebulizer solution 2017-05 14:51: 31 Yes .5mg Inhale 0.5 mg daily. [facility] albuterol 2.5 mg /3 mL (0.083 %) nebulizer solution 2017-05 14:51: 31 Yes 2.5mg Inhale 2.5 mg every 4 (four) hours as needed for Wheezing or Shortness of Breath. [facility] fluticasone 50 mcg/actuati on nasal spray 2017-05 14:51: 31 Yes Use in each nostril daily. [facility] budesonide 0.5 mg/2 mL nebulizer solution 2017-05 14:51: 31 Yes .5mg Inhale 0.5 mg daily. [facility] albuterol 2.5 mg /3 mL (0.083 %) nebulizer solution 2017-05 14:51: 31 Yes 2.5mg Inhale 2.5 mg every 4 (four) hours as needed for Wheezing or Shortness of Breath. [facility] fluticasone 50 mcg/actuati on nasal spray 2017-05 14:51: 31 Yes Use in each nostril daily. [facility] budesonide 0.5 mg/2 mL nebulizer solution 2017-05 14:51: 31 Yes .5mg Inhale 0.5 mg daily. [facility] albuterol 2.5 mg /3 mL (0.083 %) nebulizer solution 2017-05 14:51: 31 Yes 2.5mg Inhale 2.5 mg every 4 (four) hours as needed for Wheezing or Shortness of Breath. [facility] fluticasone 50 mcg/actuati on nasal spray 2017-05 14:51: 31 Yes Use in each nostril daily. [facility] budesonide 0.5 mg/2 mL nebulizer solution 2017-05 14:51: 31 Yes .5mg Inhale 0.5 mg daily. [facility] albuterol 2.5 mg /3 mL (0.083 %) nebulizer solution 2017-05 14:51: 31 Yes 2.5mg Inhale 2.5 mg every 4 (four) hours as needed for Wheezing or Shortness of Breath. [facility] fluticasone 50 mcg/actuati on nasal spray 2017-05 14:51: 31 Yes Use in each nostril daily. [facility] budesonide 0.5 mg/2 mL nebulizer solution 2017-05 14:51: 31 Yes .5mg Inhale 0.5 mg daily. [facility] albuterol 2.5 mg /3 mL (0.083 %) nebulizer solution 2017-05 14:51: 31 Yes 2.5mg Inhale 2.5 mg every 4 (four) hours as needed for Wheezing or Shortness of Breath. [facility] ubidecareno ne (COQ-10 ORAL) 2017-05 14:48: 44 Yes Take by mouth. [facility] aspirin (ADULT LOW DOSE ASPIRIN) 81 mg EC tablet 2017-05 14:48: 44 Yes 162mg Take 162 mg by mouth daily. [facility] albuterol sulfate 90 mcg/actuati on AePB 2017-05 14:48: 44 Yes Inhale. [facility] ubidecareno ne (COQ-10 ORAL) 2017-05 14:48: 44 Yes Take by mouth. [facility] aspirin (ADULT LOW DOSE ASPIRIN) 81 mg EC tablet 2017-05 14:48: 44 Yes 162mg Take 162 mg by mouth daily. [facility] albuterol sulfate 90 mcg/actuati on AePB 2017-05 14:48: 44 Yes Inhale. [facility] ubidecareno ne (COQ-10 ORAL) 2017-05 14:48: 44 Yes Take by mouth. [facility] aspirin (ADULT LOW DOSE ASPIRIN) 81 mg EC tablet 2017-05 14:48: 44 Yes 162mg Take 162 mg by mouth daily. [facility] albuterol sulfate 90 mcg/actuati on AePB 2017-05 14:48: 44 Yes Inhale. [facility] ubidecareno ne (COQ-10 ORAL) 2017-05 14:48: 44 Yes Take by mouth. [facility] (ADULT LOW DOSE ASPIRIN) 81 mg EC tablet 2017-05 14:48: 44 Yes 162mg Take 162 mg by mouth daily. [facility] albuterol sulfate 90 mcg/actuati on AePB 2017-05 14:48: 44 Yes Inhale. [facility] ubidecareno ne (COQ-10 ORAL) 2017-05 14:48: 44 Yes Take by mouth. [facility] aspirin (ADULT LOW DOSE ASPIRIN) 81 mg EC tablet 2017-05 14:48: 44 Yes 162mg Take 162 mg by mouth daily. [facility] albuterol sulfate 90 mcg/actuati on AePB 2017-05 14:48: 44 Yes Inhale. [facility] ubidecareno ne (COQ-10 ORAL) 2017-05 14:48: 44 Yes Take by mouth. [facility] aspirin (ADULT LOW DOSE ASPIRIN) 81 mg EC tablet 2017-05 14:48: 44 Yes 162mg Take 162 mg by mouth daily. [facility] albuterol sulfate 90 mcg/actuati on AePB 2017-05 14:48: 44 Yes Inhale. [facility] ubidecareno ne (COQ-10 ORAL) 2017-05 14:48: 44 Yes Take by mouth. [facility] aspirin (ADULT LOW DOSE ASPIRIN) 81 mg EC tablet 2017-05 14:48: 44 Yes 162mg Take 162 mg by mouth daily. [facility] albuterol sulfate 90 mcg/actuati on AePB 2017-05 14:48: 44 Yes Inhale. [facility] ubidecareno ne (COQ-10 ORAL) 2017-05 14:48: 44 Yes Take by mouth. [facility] aspirin (ADULT LOW DOSE ASPIRIN) 81 mg EC tablet 2017-05 14:48: 44 Yes 162mg Take 162 mg by mouth daily. [facility] albuterol sulfate 90 mcg/actuati on AePB 2017-05 14:48: 44 Yes Inhale. [facility] levothyroxi ne 88 mcg tablet 2017-05 00:00: 00 Yes [facility] levothyroxi ne 88 mcg tablet 2017-05 00:00: 00 Yes [facility] levothyroxi ne 88 mcg tablet 2017-05 00:00: 00 Yes [facility] levothyroxi ne 88 mcg tablet 2017-05 00:00: 00 Yes [facility] levothyroxi ne 88 mcg tablet 2017-05 00:00: 00 Yes [facility] levothyroxi ne 88 mcg tablet 2017-05 00:00: 00 Yes [facility] levothyroxi ne 88 mcg tablet 2017-05 00:00: 00 Yes [facility] levothyroxi ne 88 mcg tablet 2017-05 00:00: 00 Yes [facility] levothyroxi ne 88 mcg tablet 2017-05 00:00: 00 Yes [facility] levothyroxi ne 88 mcg tablet 2017-05 00:00: 00 Yes [facility] levothyroxi ne 88 mcg tablet 2017-05 00:00: 00 Yes [facility] levothyroxi ne 88 mcg tablet 2017-05 00:00: 00 Yes [facility] allopurinol 300 mg tablet 2017-05 00:00: 00 Yes [facility] allopurinol 300 mg tablet 2017-05 00:00: 00 Yes [facility] furosemide 40 mg tablet 2017-05 00:00: 00 Yes [facility] HYDROcodone -acetaminop hen 7.5-325 mg per tablet 2017-05 00:00: 00 Yes [facility] metoprolol succinate XL 50 mg 24 hr tablet 2017-05 00:00: 00 Yes [facility] pantoprazol e 40 mg EC tablet 2017-05 00:00: 00 Yes [facility] KCL 20 mEq tablet 2017-05 00:00: 00 Yes [facility] simvastatin 20 mg tablet 2017-05 00:00: 00 Yes [facility] furosemide 40 mg tablet 2017-05 00:00: 00 Yes [facility] allopurinol 300 mg tablet 2017-05 00:00: 00 Yes [facility] furosemide 40 mg tablet 2017-05 00:00: 00 Yes [facility] HYDROcodone -acetaminop hen 7.5-325 mg per tablet 2017-05 00:00: 00 Yes [facility] metoprolol succinate XL 50 mg 24 hr tablet 2017-05 00:00: 00 Yes [facility] HYDROcodone -acetaminop hen 7.5-325 mg per tablet 2017-05 00:00: 00 Yes [facility] pantoprazol e 40 mg EC tablet 2017-05 00:00: 00 Yes [facility] KCL 20 mEq tablet 2017-05 00:00: 00 Yes [facility] simvastatin 20 mg tablet 2017-05 00:00: 00 Yes [facility] allopurinol 300 mg tablet 2017-05 00:00: 00 Yes [facility] metoprolol succinate XL 50 mg 24 hr tablet 2017-05 00:00: 00 Yes [facility] furosemide 40 mg tablet 2017-05 00:00: 00 Yes [facility] HYDROcodone -acetaminop hen 7.5-325 mg per tablet 2017-05 00:00: 00 Yes [facility] metoprolol succinate XL 50 mg 24 hr tablet 2017-05 00:00: 00 Yes [facility] pantoprazol e 40 mg EC tablet 2017-05 00:00: 00 Yes [facility] KCL 20 mEq tablet 2017-05 00:00: 00 Yes [facility] simvastatin 20 mg tablet 2017-05 00:00: 00 Yes [facility] pantoprazol e 40 mg EC tablet 2017-05 00:00: 00 Yes [facility] KCL 20 mEq tablet 2017-05 00:00: 00 Yes [facility] allopurinol 300 mg tablet 2017-05 00:00: 00 Yes [facility] furosemide 40 mg tablet 2017-05 00:00: 00 Yes [facility] HYDROcodone -acetaminop hen 7.5-325 mg per tablet 2017-05 00:00: 00 Yes [facility] metoprolol succinate XL 50 mg 24 hr tablet 2017-05 00:00: 00 Yes [facility] pantoprazol e 40 mg EC tablet 2017-05 00:00: 00 Yes [facility] KCL 20 mEq tablet 2017-05 00:00: 00 Yes [facility] simvastatin 20 mg tablet 2017-05 00:00: 00 Yes [facility] simvastatin 20 mg tablet 2017-05 00:00: 00 Yes [facility] allopurinol 300 mg tablet 2017-05 00:00: 00 Yes [facility] furosemide 40 mg tablet 2017-05 00:00: 00 Yes [facility] HYDROcodone -acetaminop hen 7.5-325 mg per tablet 2017-05 00:00: 00 Yes [facility] metoprolol succinate XL 50 mg 24 hr tablet 2017-05 00:00: 00 Yes [facility] pantoprazol e 40 mg EC tablet 2017-05 00:00: 00 Yes [facility] KCL 20 mEq tablet 2017-05 00:00: 00 Yes [facility] simvastatin 20 mg tablet 2017-05 00:00: 00 Yes [facility] allopurinol 300 mg tablet 2017-05 00:00: 00 Yes [facility] furosemide 40 mg tablet 2017-05 00:00: 00 Yes [facility] HYDROcodone -acetaminop hen 7.5-325 mg per tablet 2017-05 00:00: 00 Yes [facility] metoprolol succinate XL 50 mg 24 hr tablet 2017-05 00:00: 00 Yes [facility] pantoprazol e 40 mg EC tablet 2017-05 00:00: 00 Yes [facility] KCL 20 mEq tablet 2017-05 00:00: 00 Yes [facility] simvastatin 20 mg tablet 2017-05 00:00: 00 Yes [facility] allopurinol 300 mg tablet 2017-05 00:00: 00 Yes [facility] furosemide 40 mg tablet 2017-05 00:00: 00 Yes [facility] HYDROcodone -acetaminop hen 7.5-325 mg per tablet 2017-05 00:00: 00 Yes [facility] metoprolol succinate XL 50 mg 24 hr tablet 2017-05 00:00: 00 Yes [facility] pantoprazol e 40 mg EC tablet 2017-05 00:00: 00 Yes [facility] KCL 20 mEq tablet 2017-05 00:00: 00 Yes [facility] simvastatin 20 mg tablet 2017-05 00:00: 00 Yes [facility] allopurinol 300 mg tablet 2017-05 00:00: 00 Yes [facility] furosemide 40 mg tablet 2017-05 00:00: 00 Yes [facility] HYDROcodone -acetaminop hen 7.5-325 mg per tablet 2017-05 00:00: 00 Yes [facility] metoprolol succinate XL 50 mg 24 hr tablet 2017-05 00:00: 00 Yes [facility] pantoprazol e 40 mg EC tablet 2017-05 00:00: 00 Yes [facility] KCL 20 mEq tablet 2017-05 00:00: 00 Yes [facility] simvastatin 20 mg tablet 2017-05 00:00: 00 Yes [facility] allopurinol 300 mg tablet 2017-05 00:00: 00 Yes [facility] furosemide 40 mg tablet 2017-05 00:00: 00 Yes [facility] HYDROcodone -acetaminop hen 7.5-325 mg per tablet 2017-05 00:00: 00 Yes [facility] metoprolol succinate XL 50 mg 24 hr tablet 2017-05 00:00: 00 Yes [facility] pantoprazol e 40 mg EC tablet 2017-05 00:00: 00 Yes [facility] KCL 20 mEq tablet 2017-05 00:00: 00 Yes [facility] simvastatin 20 mg tablet 2017-05 00:00: 00 Yes [facility] allopurinol 300 mg tablet 2017-05 00:00: 00 Yes [facility] furosemide 40 mg tablet 2017-05 00:00: 00 Yes [facility] HYDROcodone -acetaminop hen 7.5-325 mg per tablet 2017-05 00:00: 00 Yes [facility] metoprolol succinate XL 50 mg 24 hr tablet 2017-05 00:00: 00 Yes [facility] pantoprazol e 40 mg EC tablet 2017-05 00:00: 00 Yes [facility] KCL 20 mEq tablet 2017-05 00:00: 00 Yes [facility] simvastatin 20 mg tablet 2017-05 00:00: 00 Yes [facility] allopurinol 300 mg tablet 2017-05 00:00: 00 Yes [facility] furosemide 40 mg tablet 2017-05 00:00: 00 Yes [facility] HYDROcodone -acetaminop hen 7.5-325 mg per tablet 2017-05 00:00: 00 Yes [facility] metoprolol succinate XL 50 mg 24 hr tablet 2017-05 00:00: 00 Yes [facility] pantoprazol e 40 mg EC tablet 2017-05 00:00: 00 Yes [facility] KCL 20 mEq tablet 2017-05 00:00: 00 Yes [facility] simvastatin 20 mg tablet 2017-05 00:00: 00 Yes [facility] gabapentin 600 mg tablet 02-03 00:00: 00 Yes [facility] gabapentin 600 mg tablet 02-03 00:00: 00 Yes [facility] gabapentin 600 mg tablet 02-03 00:00: 00 Yes [facility] gabapentin 600 mg tablet 02-03 00:00: 00 Yes [facility] gabapentin 600 mg tablet 02-03 00:00: 00 Yes [facility] gabapentin 600 mg tablet 02-03 00:00: 00 Yes [facility] gabapentin 600 mg tablet 02-03 00:00: 00 Yes [facility] gabapentin 600 mg tablet 02-03 00:00: 00 Yes [facility] gabapentin 600 mg tablet 02-03 00:00: 00 Yes [facility] gabapentin 600 mg tablet 02-03 00:00: 00 Yes [facility] gabapentin 600 mg tablet 02-03 00:00: 00 Yes [facility] gabapentin 600 mg tablet 02-03 00:00: 00 Yes [facility] albuterol sulfate 2.5 mg/3 mL (0.083 %) solution for nebulizatio n INHALE ONE VIAL VIA NEBULIZER FOUR TIMES DAILY DIRECTED albuterol sulfate 2.5 mg/3 mL (0.083 %) solution for nebulizatio n INHALE ONE VIAL VIA NEBULIZER FOUR TIMES DAILY DIRECTED No albuterol sulfate 2.5 mg/3 mL (0.083 %) solution for nebulizati on INHALE ONE VIAL VIA NEBULIZER FOUR TIMES DAILY DIRECTED [facility] allopurinol 300 mg tablet TAKE 1 TABLET BY MOUTH EVERY DAY allopurinol 300 mg tablet TAKE 1 TABLET BY MOUTH EVERY DAY No allopurino l 300 mg tablet TAKE 1 TABLET BY MOUTH EVERY DAY [facility] Aspir-81 mg tablet,joseph yed release Take 2 tablets by oral route. Aspir-81 mg tablet,joseph yed release Take 2 tablets by oral route. No 2 Aspir-81 mg tablet,del ayed release Take 2 tablets by oral route. [facility] budesonide 0.5 mg/2 mL suspension for nebulizatio n INHALE ONE VIAL VIA NEBULIZER TWICE DAILY budesonide 0.5 mg/2 mL suspension for nebulizatio n INHALE ONE VIAL VIA NEBULIZER TWICE DAILY No budesonide 0.5 mg/2 mL suspension for nebulizati on INHALE ONE VIAL VIA NEBULIZER TWICE DAILY [facility] butalbital- acetaminoph en-caffeine 50 mg-300 mg-40 mg capsule TAKE 1 CAPSULE BY MOUTH THREE TIMES DAILY butalbital- acetaminoph en-caffeine 50 mg-300 mg-40 mg capsule TAKE 1 CAPSULE BY MOUTH THREE TIMES DAILY No butalbital -acetamino phen-caffe ine 50 mg-300 mg-40 mg capsule TAKE 1 CAPSULE BY MOUTH THREE TIMES DAILY [facility] cefdinir 300 mg capsule Take 1 capsule every 12 hours by oral route. cefdinir 300 mg capsule Take 1 capsule every 12 hours by oral route. No 1capsul e(s) Q12H cefdinir 300 mg capsule Take 1 capsule every 12 hours by oral route. [facility] cetirizine 10 mg tablet Take 1 tablet every day by oral route. cetirizine 10 mg tablet Take 1 tablet every day by oral route. No 1 Q1D cetirizine 10 mg tablet Take 1 tablet every day by oral route. [facility] Co Q-10 10 mg capsule Take by oral route as directed. Co Q-10 10 mg capsule Take by oral route as directed. No Co Q-10 10 mg capsule Take by oral route as directed. [facility] fluticasone propionate 50 mcg/actuati on nasal spray,suspe nsion [place] 2 sprays every day by intranasal route. fluticasone propionate 50 mcg/actuati on nasal spray,suspe nsion [place] 2 sprays every day by intranasal route. No 2spray( s) Q1D fluticason e propionate 50 mcg/actuat ion nasal spray,susp ension [place] 2 sprays every day by intranasal route. [facility] furosemide 40 mg tablet Take 1 tablet every 12 hours by oral route. furosemide 40 mg tablet Take 1 tablet every 12 hours by oral route. No furosemide 40 mg tablet Take 1 tablet every 12 hours by oral route. [facility] gabapentin 600 mg tablet TAKE 1 TABLET BY MOUTH THREE TIMES DAILY FOR 7 DAYS gabapentin 600 mg tablet TAKE 1 TABLET BY MOUTH THREE TIMES DAILY FOR 7 DAYS No gabapentin 600 mg tablet TAKE 1 TABLET BY MOUTH THREE TIMES DAILY FOR 7 DAYS [facility] hydrocodone 7.5 mg-acetamin ophen 325 mg tablet TAKE 1 TABLET BY MOUTH THREE TIMES DAILY NEEDED FOR PAIN hydrocodone 7.5 mg-acetamin ophen 325 mg tablet TAKE 1 TABLET BY MOUTH THREE TIMES DAILY NEEDED FOR PAIN No hydrocodon e 7.5 mg-acetami nophen 325 mg tablet TAKE 1 TABLET BY MOUTH THREE TIMES DAILY NEEDED FOR PAIN [facility] ipratropium bromide 0.02 % solution for inhalation Inhale 2.5 mL every 6 hours by inhalation route. ipratropium bromide 0.02 % solution for inhalation Inhale 2.5 mL every 6 hours by inhalation route. No 2.5mL Q6H ipratropiu m bromide 0.02 % solution for inhalation Inhale 2.5 mL every 6 hours by inhalation route. [facility] ketoconazol e 2 % topical cream APPLY TO AFFECTED AREA(S) OF SKIN TWICE DAILY ketoconazol e 2 % topical cream APPLY TO AFFECTED AREA(S) OF SKIN TWICE DAILY No ketoconazo le 2 % topical cream APPLY TO AFFECTED AREA(S) OF SKIN TWICE DAILY [facility] levothyroxi ne 75 mcg tablet TAKE 1 TABLET BY MOUTH EVERY DAY levothyroxi ne 75 mcg tablet TAKE 1 TABLET BY MOUTH EVERY DAY No levothyrox ine 75 mcg tablet TAKE 1 TABLET BY MOUTH EVERY DAY [facility] meclizine 25 mg tablet TAKE 1 TABLET BY MOUTH THREE TIMES DAILY meclizine 25 mg tablet TAKE 1 TABLET BY MOUTH THREE TIMES DAILY No meclizine 25 mg tablet TAKE 1 TABLET BY MOUTH THREE TIMES DAILY [facility] Medrol ([place]) 4 mg tablets in a dose pack Take 1 dose pk every day by oral route. Medrol ([place]) 4 mg tablets in a dose pack Take 1 dose pk every day by oral route. No 1dose pk(s) Q1D Medrol ([place]) 4 mg tablets in a dose pack Take 1 dose pk every day by oral route. [facility] metoprolol succinate ER 50 mg tablet,exte nded release 24 hr TAKE 1 TABLET BY MOUTH EVERY DAY metoprolol succinate ER 50 mg tablet,exte nded release 24 hr TAKE 1 TABLET BY MOUTH EVERY DAY No metoprolol succinate ER 50 mg tablet,ext ended release 24 hr TAKE 1 TABLET BY MOUTH EVERY DAY [facility] pantoprazol e 40 mg tablet,joseph yed release TAKE 1 TABLET BY MOUTH EVERY DAY pantoprazol e 40 mg tablet,joseph yed release TAKE 1 TABLET BY MOUTH EVERY DAY No pantoprazo le 40 mg tablet,del ayed release TAKE 1 TABLET BY MOUTH EVERY DAY [facility] potassium chloride ER 20 mEq tablet,exte nded release(par t/cryst) TAKE 1 TABLET BY MOUTH EVERY 12 HOURS potassium chloride ER 20 mEq tablet,exte nded release(par t/cryst) TAKE 1 TABLET BY MOUTH EVERY 12 HOURS No potassium chloride ER 20 mEq tablet,ext ended release(pa rt/cryst) TAKE 1 TABLET BY MOUTH EVERY 12 HOURS [facility] simvastatin 20 mg tablet TAKE 1 TABLET BY MOUTH EVERY DAY simvastatin 20 mg tablet TAKE 1 TABLET BY MOUTH EVERY DAY No simvastati n 20 mg tablet TAKE 1 TABLET BY MOUTH EVERY DAY [facility] Vital Signs Vital Name Observation Time Observation Value Comments S ource Height 2021-01-28 00:00:00 63 [in_i] [facility] Procedures Procedure Date / Time Performed Performing Clinician Source XR CHEST 2 VW 2022-08-11 17:10:07 Gennaro Bird [facility] MR THORACIC SPINE WO CONTRAST 2022-01-22 18:23:26 Requisition, Paper [facility] ASSIGNMENT OF BENEFITS 2022-01-22 16:49:25 Docto r Unassigned, [place] [facility] MR LUMBAR SPINE WO CONTRAST 2021-06-14 20:54:09 Requisition, Paper [facility] MR CERVICAL SPINE WO CONTRAST 2021-06-14 20:52:50 Requisition, Paper [facility] CONSENT/REFUSAL FOR DIAGNOSIS AND TREATMENT 2021-06-14 18:10:15 Doctor Unassigned, [place] [facility] ASSIGNMENT OF BENEFITS 2021-06-14 18:10:02 Docto r Unassigned, [place] [facility] AUTHORIZATION FOR RELEASE OF PHI 2020-01-30 05:01:00 Doctor Unassigned, [place] [facility] MR LUMBAR SPINE WO CONTRAST 2020-01-19 15:43:07 Requisition, Paper [facility] XR HIPS 2 VW BILATERAL 2020-01-19 15:03:15 Isael Dee [facility] ASSIGNMENT OF BENEFITS 2020-01-19 14:36:22 Docto r Unassigned, [place] [facility] Operative Procedure on Knee 2010-05-18 00:00:00 [facility] Total Knee Replacement 2006-05-18 00:00:00 [facility] Carpal Tunnel Surgery 2004-05-18 00:00:00 [facility] Operative Procedure on Knee 2004-05-18 00:00:00 [facility] Neck/chest Surgery Procedure 2004-05-18 00:00:00 [facility] Operation on Bladder [facility] Bilateral Mastectomy [facility] Partial Hysterectomy [facility] Biopsy of Breast [facility] Shoulder Surgery Procedure [facility] Procedure on Gallbladder [facility] Removal [facility] Encounters Start Date/Time End Date/Time Encounter Type Admission Type Attending Clinicians Care Facility Care Department Encounter ID Source 2022-08-11 11:59:15 2022-08-11 23:59:00 Hospital Encounter Radiology [facility] [id number] 350.1.13.10 4.2.7.2.686 [id number] [facility] 2022-08-11 11:59:00 2022-08-11 11:59:00 Hospital Encounter Radiology [facility] 1.2.840.114 350.1.13.10 4.2.7.2.686 [id number] [facility] 2022-08-11 00:00:00 2022-08-11 11:59:00 Outpatient R RADIOLOGY [facility] [id number] [facility] 2022-08-11 00:00:00 2022-08-11 00:00:00 Letter (Out) Doctor Unassigned, [place] [facility] [id number] 350.1.13.10 4.2.7.2.686 [id number] [facility] 2022-01-22 11:51:44 2022-01-22 23:59:00 Outpatient R RADIOLOGY [facility] [id number] [facility] 2022-01-22 11:51:44 2022-01-22 23:59:00 Hospital Encounter Radiology [facility] [id number] 350.1.13.10 4.2.7.2.686 [id number] [facility] 2022-01-22 00:00:00 2022-01-22 00:00:00 Orders Only Doctor Unassigned, [place] [facility] 1.2.840.114 350.1.13.10 4.2.7.2.686 [id number] [facility] 2021-06-20 12:43:13 2021-06-20 23:59:00 Outpatient R RADIOLOGY [facility] [id number] [facility] 2021-06-20 12:43:13 2021-06-20 23:59:00 Hospital Encounter Radiology [facility] 1.2.840.114 350.1.13.10 4.2.7.2.686 [id number] [facility] 2021-06-14 12:12:19 2021-06-14 23:59:00 Hospital Encounter Radiology [facility] 1.2.840.114 350.1.13.10 4.2.7.2.686 [id number] [facility] 2021-06-14 12:11:53 2021-06-14 12:11:53 Outpatient R RADIOLOGY [facility] [id number] [facility] 2021-06-14 12:11:53 2021-06-14 12:11:53 Hospital Encounter Radiology [facility] 1.2.840.114 350.1.13.10 4.2.7.2.686 [id number] [facility] 2021-04-02 10:47:00 2021-04-02 10:47:00 Outpatient ANTHONY_JEF FREY_NP [facility] [id number] [facility] 2021-03-24 12:38:00 2021-03-24 12:38:00 Outpatient ANTHONY_JEF FREY_NP [facility] [id number] [facility] 2021-01-28 09:20:00 2021-01-28 09:20:00 Outpatient ANTHONY_JEF FREY_NP [facility] [id number] [facility] 2021-01-28 00:00:00 2021-01-28 00:00:00 Rikki Steele, PUNCH MOLDER: [address] [facility] [address], [place] [address] , [place] [address]/OK/YVETTE - SETNM_VA [facility] [id number] [facility] 2021-01-28 00:00:00 2021-01-28 00:00:00 Outpatient Rikki Steele [facility] [id number] 2020-10-04 01:01:00 2020-10-04 01:01:00 Outpatient ANDI_FREDRICK FREY_NP [facility] [id number] [facility] 2020-01-30 00:00:00 2020-01-30 00:00:00 Orders Only Doctor Unassigned, [place] [facility] 1..840.114 350.1.13.10 4.2.7.2.686 [id number] [facility] 2020-01-19 09:44:32 2020-01-19 23:59:00 Hospital Encounter Radiology [facility] 1.2.840.114 350.1.13.10 4.2.7.2.686 [id number] [facility] 2020-01-19 09:41:36 2020-01-19 09:43:00 Outpatient R RADIOLOGY [facility] [id number] [facility] 2020-01-19 09:41:36 2020-01-19 09:43:00 Hospital Encounter Radiology [facility] 1.2.840.114 350.1.13.10 4.2.7.2.686 [id number] [facility] 2020-01-19 00:00:00 2020-01-19 00:00:00 Orders Only Doctor Unassigned, [place] [facility] 1.2.840.114 350.1.13.10 4.2.7.2.686 [id number] [facility] Results Test Description Test Time Test Comments [...] left side of the lower endplate of [id number]. Both neural foramina are elongated and narrowed, [...] be further investigated by ultrasound and/or MRCP. [facility] Results Inft User - 01/19/2020 10:54 [...] left side of the lower endplate of [id number]. Both neural foramina are elongated and narrowed, [...] be further investigated by ultrasound and/or MRCP. [facility] XR HIPS 2 VW BILATERAL 15:08:33 HISTORY: [...] signs of arthritis in left hip joint. [facility] Results Inft User - 01/19/2020 10:09 [...] signs of arthritis in left hip joint. [facility] MRI UP EXT W/O CONT 17:00:[address] [id number] IMAGING REPORTPatient Name: JERRY WATERS RDate of Service: 25-07-3006Wtk: [phone] Sex: F Order #: [id number] Room: OPEDOB: 1940 X-Ray Number: [id number] Record Number: [id number] Hospital Number: [id number] Physician: HARDIK LEGGETTOrdering Physician: AYLA LEGGETT right [...]
[2023-07-01 16:12] LABS: Absolute Lymphocytes (CBC) 1.2 K/uL (0.7-4.9); Hematocrit 31.6 % (36.0-45.0); Lymphocytes % 21.7 % (15.3-44.8); MCV 90.7 fL (80-100); MPV 9.3 fL (7.6-11.3); Platelets 164 thou/uL (152-406); RBC Red Blood Cell Count 3.49 M/uL (3.86-4.86)
--- NOTE | 2023-07-01 16:14 | RAD REPORT ---
EXAM DESCRIPTION: RAD - Chest Single View - 07/01/2023 4:08 pm CLINICAL HISTORY: CHEST PAIN Chest pain. COMPARISON: <Comparisons> FINDINGS: Portable technique limits examination quality. The lungs are grossly clear. The heart is normal in size. No displaced fractures. IMPRESSION: No acute intrathoracic process suspected.
[2023-07-01 16:42] LABS: Albumin 3.1 g/dL (3.4-5.0); Bilirubin Direct 0.3 mg/dL (0-0.2); Bilirubin Indirect, Calculated 0.3 mg/dL (0.2-0.8); Bilirubin Total 0.6 mg/dL (0.2-1.0); Protein, Total 6.4 g/dL (6.4-8.2); Thyroid Stimulating Hormone 0.66 uIU/mL (0.358-3.740); Troponin High Sensitivity 23.6 pg/mL (<58.9)
[2023-07-01 16:45] LABS: Magnesium 2.1 mg/dL (1.6-2.4); Potassium 4.4 mEq/L (3.5-5.1)
--- NOTE | 2023-07-01 19:45 | EDPHYS ---
Physician Documentation [facility] Name: Ana Paula Nichols Age: 83 yrs Sex: Female : 1940 Arrival Date: 07/01/2023 Time: 15:36 Bed 4 Private MD: ED Physician Mendoza Mcdaniel HPI: 07/01 16:03 This 83 yrs old Female presents to ER via EMS with complaints of bradycardia. rt 16:08 Patient presents to the ED with bradycardia. The patient was reportedly at a doctor's rt office, had chest pain and a syncopal event. EMS was called, patient was found to have heart rate about 30 with third-degree heart block. Patient was hypotensive to 60 systolic. Pacing was started, vital signs have improved. Patient states that she feels better. Denies other acute complaints, symptoms are severe in severity, no other aggravating or alleviating factors.. Historical: - Allergies: 15:44 Digoxin; mb9 15:44 Percodan; mb9 15:44 Tape; mb9 15:44 Tetanus Vaccines \T\ Toxoid; mb9 - Home Meds: 15:49 gabapentin 300 mg Oral cap 2 caps 3 times per day [Active]; Lasix 40 mg Oral tab 1 tab mb9 [Active]; levothyroxine 75 mcg oral tablet [Active]; meclizine 25 mg oral tablet 2 to 3 times per day [Active]; memantine 10 mg oral tablet 2 times per day [Active]; metoprolol tartrate 50 mg Oral tablet [Active]; Protonix 40 mg Oral tablet, delayed release (enteric coated) 1 tab [Active]; simvastatin 20 mg Oral tab 1 tab once daily [Active]; Xarelto 20 mg oral tablet [Active]; lisinopril 10 mg Oral tablet 1 tab once [Active]; - PMHx: 15:44 CHF; High Cholesterol; COPD; Hypertension; Thyroid problem; mb9 15:52 Cardiac arrest; Cerebrovascular accident; mb9 - PSHx: 15:52 Total abdominal hysterectomy; back; bilateral knee; neck; mastectomy; mb9 - Immunization history:: Adult Immunizations up to date. - Social history:: Smoking status: Patient denies any tobacco usage or history of. - Family history:: not pertinent. ROS: 16:08 Constitutional: Negative for fever, chills, and weight loss, Respiratory: Negative for rt shortness of breath, cough, wheezing, and pleuritic chest pain, Abdomen/GI: Negative for abdominal pain, nausea, vomiting, diarrhea, and constipation, MS/Extremity: Negative for injury and deformity, Skin: Negative for injury, rash, and discoloration, Psych: Negative for depression, anxiety, suicide ideation, homicidal ideation, and hallucinations, 16:08 Cardiovascular: Positive for chest pain, Negative for edema, 16:08 Neuro: Positive for syncope, Negative for altered mental status, Exam: 16:08 Constitutional: This is a well developed, well nourished patient who is awake, alert, rt and in no acute distress. Head/Face: Normocephalic, atraumatic. Neck: Trachea midline, no thyromegaly or masses palpated, and no cervical lymphadenopathy. Supple, full range of motion without nuchal rigidity, or vertebral point tenderness. No Meningismus. Chest/axilla: Normal chest wall appearance and motion. Nontender with no deformity. No lesions are appreciated. Cardiovascular: Regular rate and rhythm with a normal S1 and S2. No gallops, murmurs, or rubs. Normal PMI, no JVD. No pulse deficits. Respiratory: Lungs have equal breath sounds bilaterally, clear to auscultation and percussion. No rales, rhonchi or wheezes noted. No increased work of breathing, no retractions or nasal flaring. Abdomen/GI: Soft, non-tender, with normal bowel sounds. No distension or tympany. No guarding or rebound. No evidence of tenderness throughout. Skin: Warm, dry with normal turgor. Normal color with no rashes, no lesions, and no evidence of cellulitis. MS/ Extremity: Pulses equal, no cyanosis. Neurovascular intact. Full, normal range of motion. Neuro: Awake and alert, GCS 15, oriented to person, place, time, and situation. Cranial nerves II-XII grossly intact. Motor strength 5/5 in all extremities. Sensory grossly intact. Cerebellar exam normal. Normal gait. 16:08 ECG was reviewed by the Attending Physician. Vital Signs: 15:41 BP 95 / 81; Pulse 66; Resp 18; Pulse Ox 100% ; Weight 68 kg; Height 5 ft. 0 in. ; Pain mb9 0/10; 16:05 BP 116 / 47; Pulse 65; Resp 16; Pulse Ox 99% on R/A; mb9 16:19 BP 124 / 49; Pulse 68; Resp 15; Pulse Ox 97% on R/A; mb9 16:23 Height 4 ft. 11 in. ; mb9 16:52 BP 118 / 54; Pulse 69; Resp 16; Pulse Ox 98% on R/A; mb9 17:24 BP 130 / 49; Pulse 66; Resp 16; Pulse Ox 100% on R/A; mb9 17:48 BP 135 / 57; Pulse 68; Resp 16; Pulse Ox 100% on R/A; mb9 18:21 BP 113 / 52; Pulse 70; Resp 16; Pulse Ox 99% on R/A; mb9 19:17 BP 132 / 65; Pulse 74; Resp 16; Pulse Ox 99% on R/A; mb9 19:30 BP 134 / 57; Pulse 72; Resp 18; Temp 97.8; Pulse Ox 100% on R/A; as9 15:41 Body Mass Index 29.28 (68.00 kg, 149.86 cm) mb9 15:41 Pain Scale: Adult mb9 MDM: 15:40 Patient medically screened. rt 20:03 Differential Diagnosis 3rd degree heat block heart block, symptomatic bradycardia. Data rt reviewed: vital signs, nurses notes, lab test result(s), EKG, radiologic studies. Consideration of Admission/Observation Patient requires transfer for higher level of care. Independent interpretation of the following test(s) in the Emergency Department X-Ray: My interpretation is No edema seen on interpretation of x-ray images. Care significantly affected by the following chronic conditions: Congestive heart failure. Counseling: I had a detailed discussion with the patient and/or guardian regarding the historical points, exam findings, and any diagnostic results supporting the discharge/admit diagnosis, lab results, radiology results, the need to transfer to another facility. ED course: Initially attempted to call [facility], declined at all sites, will try [facility]. 07/01 15:41 Order name: Basic Metabolic Panel; Complete Time: 16:46 rt 07/01 15:41 Order name: CBC with Diff; Complete Time: 16:31 rt 07/01 15:41 Order name: LFT's; Complete Time: 16:46 rt 07/01 15:41 Order name: Magnesium; Complete Time: 16:46 rt 07/01 15:41 Order name: NT PRO-BNP; Complete Time: 16:46 rt 07/01 15:41 Order name: Troponin HS; Complete Time: 16:46 rt 07/01 15:41 Order name: TSH; Complete Time: 16:46 rt 07/01 15:41 Order name: XRAY Chest (1 view); Complete Time: 16:31 rt 07/01 15:41 Order name: EKG; Complete Time: 15:41 rt 07/01 15:41 Order name: Cardiac monitoring; Complete Time: 15:46 rt 07/01 15:41 Order name: EKG - Nurse/Tech; Complete Time: 15:46 rt 07/01 15:41 Order name: IV Saline Lock; Complete Time: 15:46 rt 07/01 15:41 Order name: Labs collected and sent; Complete Time: 15:46 rt 07/01 15:41 Order name: O2 Per Protocol; Complete Time: 15:46 rt 07/01 15:41 Order name: O2 Sat Monitoring; Complete Time: 15:46 rt EC:08 Rate is 66 beats/min. Rhythm is regular, 1st Degree Block with No ectopy. QRS [place] is rt Normal. AR interval is normal. QRS interval is normal. QT interval is normal. No Q waves. T waves are Inverted in lead V1. No ST changes noted. Administered Medications: No medications were administered Disposition Summary: 07/01/23 19:45 Transfer Ordered Notes: Transfer Location: Other Acute Care Facility rt Reason: Higher level of care rt Condition: Stable rt Problem: new rt Symptoms: have improved rt Accepting Physician: (07/01/23 20:51) km8 Diagnosis - Third-degree heart block rt Discharge Instructions: - Discharge Summary Sheet mb9 Forms: - SBAR form mb9 - Medication Reconciliation Form rt Signatures: Dispatcher [employer] Nicole Roa RN RN mb9 Mendoza Mcdaniel MD MD rt Le Carrasco RN RN km8 Corrections: (The following items were deleted from the chart) 20:51 19:45 rt km8
--- NOTE | 2023-07-01 19:45 | ER ---
Nurse's Notes [facility] Name: Ana Paula Nichols Age: 83 yrs Sex: Female : 1940 Arrival Date: 07/01/2023 Time: 15:36 Bed 4 Private MD: Diagnosis: Third-degree heart block Presentation: 07/01 15:41 Chief complaint: EMS states: "toned out for chest pain and syncopal episode while at [facility] [address]'s office. Pt BP 50 systolic and 30 HR. EKG showed 3rd degree heart block. Began pacing pt at 80 bpm, 68 mg of Ketamine administered, and 1 liter of NS given 20 g right hand.". Coronavirus screen: Vaccine status: Patient reports receiving the 2nd dose of the covid vaccine. Ebola Screen: No symptoms or risks identified at this time. Initial Sepsis Screen: Does the patient meet any 2 criteria? No. Patient's initial sepsis screen is negative. Does the patient have a suspected source of infection? No. Patient's initial sepsis screen is negative. Risk Assessment: Do you want to hurt yourself or someone else? Patient reports no desire to harm self or others. Onset of symptoms was July 01, 2023. 15:41 Method Of Arrival: EMS: [facility] 9 15:41 Acuity: ANDRY 2 mb9 Triage Assessment: 15:44 General: Appears uncomfortable, Behavior is cooperative. Pain: Complains of pain in mb9 chest. EENT: No signs and/or symptoms were reported regarding the EENT system. Neuro: Level of Consciousness is awake, alert, obeys commands, Oriented to person. Cardiovascular: Reports chest pain, Heart tones S1 S2 present Patient's skin is warm and dry. Pulses are all present. Rhythm is regular. Respiratory: Airway is patent Respiratory effort is even, unlabored, Respiratory pattern is regular, symmetrical, Breath sounds are clear bilaterally. GI: Abdomen is flat, non-distended, Bowel sounds present X 4 quads. Abd is soft and non tender X 4 quads. : No signs and/or symptoms were reported regarding the genitourinary system. Derm: Skin is pink, warm \\T\\ dry. Musculoskeletal: Range of motion: intact in all extremities. Historical: - Allergies: 15:44 Digoxin; mb9 15:44 Percodan; mb9 15:44 Tape; mb9 15:44 Tetanus Vaccines \\T\\ Toxoid; mb9 - Home Meds: 15:49 gabapentin 300 mg Oral cap 2 caps 3 times per day [Active]; Lasix 40 mg Oral tab 1 tab mb9 [Active]; levothyroxine 75 mcg oral tablet [Active]; meclizine 25 mg oral tablet 2 to 3 times per day [Active]; memantine 10 mg oral tablet 2 times per day [Active]; metoprolol tartrate 50 mg Oral tablet [Active]; Protonix 40 mg Oral tablet, delayed release (enteric coated) 1 tab [Active]; simvastatin 20 mg Oral tab 1 tab once daily [Active]; Xarelto 20 mg oral tablet [Active]; lisinopril 10 mg Oral tablet 1 tab once [Active]; - PMHx: 15:44 CHF; High Cholesterol; COPD; Hypertension; Thyroid problem; mb9 15:52 Cardiac arrest; Cerebrovascular accident; mb9 - PSHx: 15:52 Total abdominal hysterectomy; back; bilateral knee; neck; mastectomy; mb9 - Immunization history:: Adult Immunizations up to date. - Social history:: Smoking status: Patient denies any tobacco usage or history of. - Family history:: not pertinent. Screenin:45 [facility] ED Fall Risk Assessment (Adult) History of falling in the last 3 months, mb9 including since admission No falls in past 3 months (0 pts) Confusion or Disorientation No (0 pts) Intoxicated or Sedated No (0 pts) Impaired Gait No (0 pts) Mobility Assist Device Used No (0 pt) Altered Elimination No (0 pt) Score/Fall Risk Level 0 - 2 = Low Risk Oriented to surroundings, Maintained a safe environment, Educated pt \\T\\ family on fall prevention, incl call for assistance when getting out of bed. Abuse screen: Denies threats or abuse. Nutritional screening: No deficits noted. Tuberculosis screening: No symptoms or risk factors identified. Assessment: 16:05 Reassessment: see triage assessment. mb9 16:52 Reassessment: No changes from previously documented assessment. Patient and/or family mb9 updated on plan of care and expected duration. Pain level reassessed. Patient is alert, oriented x 3, equal unlabored respirations, skin warm/dry/pink. 17:48 Reassessment: No changes from previously documented assessment. Patient and/or family mb9 updated on plan of care and expected duration. Pain level reassessed. Patient is alert, oriented x 3, equal unlabored respirations, skin warm/dry/pink. 18:21 Reassessment: No changes from previously documented assessment. Patient and/or family mb9 updated on plan of care and expected duration. Pain level reassessed. Patient is alert, oriented x 3, equal unlabored respirations, skin warm/dry/pink. 19:30 Reassessment: No changes from previously documented assessment. Patient and/or family mb9 updated on plan of care and expected duration. Pain level reassessed. Patient is alert, oriented x 3, equal unlabored respirations, skin warm/dry/pink. 19:44 Reassessment: Spoke to pts daughter about location of transfer. mb9 20:45 Reassessment: report given to EMS by Nicole Strickland RN. km8 Vital Signs: 15:41 BP 95 / 81; Pulse 66; Resp 18; Pulse Ox 100% ; Weight 68 kg; Height 5 ft. 0 in. ; Pain mb9 0/10; 16:05 BP 116 / 47; Pulse 65; Resp 16; Pulse Ox 99% on R/A; mb9 16:19 BP 124 / 49; Pulse 68; Resp 15; Pulse Ox 97% on R/A; mb9 16:23 Height 4 ft. 11 in. ; mb9 16:52 BP 118 / 54; Pulse 69; Resp 16; Pulse Ox 98% on R/A; mb9 17:24 BP 130 / 49; Pulse 66; Resp 16; Pulse Ox 100% on R/A; mb9 17:48 BP 135 / 57; Pulse 68; Resp 16; Pulse Ox 100% on R/A; mb9 18:21 BP 113 / 52; Pulse 70; Resp 16; Pulse Ox 99% on R/A; mb9 19:17 BP 132 / 65; Pulse 74; Resp 16; Pulse Ox 99% on R/A; mb9 19:30 BP 134 / 57; Pulse 72; Resp 18; Temp 97.8; Pulse Ox 100% on R/A; as9 15:41 Body Mass Index 29.28 (68.00 kg, 149.86 cm) mb9 15:41 Pain Scale: Adult mb9 ED Course: 15:40 Patient arrived in ED. ld1 15:40 Mendoza Mcdaniel MD is Attending Physician. rt 15:40 EKG done, by ED staff, reviewed by Mendoza Mcdaniel MD. mb9 15:40 Maintain EMS IV. Dressing intact. Good blood return noted. Site clean \\T\\ dry. Gauge \\T\\ mb 9 site: 20 g right hand. 15:41 Nicole Alvarez, RN is Primary Nurse. mb9 15:41 Arm band placed on. mb9 15:44 Triage completed. mb9 15:45 Placed in gown. Bed in low position. Call light in reach. Side rails up X 1. Client mb9 placed on continuous cardiac and pulse oximetry monitoring. NIBP monitoring applied. virology teacher on. 16:04 Inserted saline lock: 22 gauge in left antecubital area, using aseptic technique. Blood mb9 collected. 16:10 XRAY Chest (1 view) In Process Unspecified. EDMS 19:00 Call inititated with [facility] for transfer. ty 19:12 Confirmation for transfer. ty 19:35 Patient transferred, IV remains in place. mb9 19:40 No provider procedures requiring assistance completed. mb9 19:45 EMS Called for transport, ETA 45 Minutes. ETA 2030. ty 20:51 Provided Education on: transfer process. km8 Administered Medications: No medications were administered Medication: 15:46 VIS not applicable for this client. mb9 Outcome: 19:40 Transferred by ground EMS Transfer form completed. Note: report given to transferring mb9 nurse MANDI Quiroz 19:40 Condition: stable 19:45 ER care complete, transfer ordered by . rt 20:51 Patient left the ED. km8 Signatures: Dispatcher [employer] EDUT Taina Ortiz, MANDI RN ld1 Nicole Alvarez, RN RN adarsh9 Mendoza Mcdaniel MD MD rt Le Carrasco RN RN km8 Phoenix Timmons Aaron, RN RN as9
[2023-07-01 21:42] VITALS: BP 134/57; TEMP 97.8; O2SAT 100
== END ==
LOC: ER 15:36
DX: I44.2 Atrioventricular block, complete (principal); R55 Syncope and collapse; I10 Essential (primary) hypertension; I50.9 Heart failure, unspecified; Z86.73 Personal history of transient ischemic attack (TIA), and cerebral infarction without residual deficits; Z79.01 Long term (current) use of anticoagulants; Z88.5 Allergy status to narcotic agent; Z88.7 Allergy status to serum and vaccine; Z88.8 Allergy status to other drugs, medicaments and biological substances; Z91.048 Other nonmedicinal substance allergy status
CPT/HCPCS: 36415; 71045; 80048; 80076; 83735; 83880; 84443; 84484; 85025

== ENCOUNTER → 2023-08-08 | Emergency (ER) | payer OTHER ==
[~2023-08-08] MED LIST: FAMOTIDINE 20 MG/2 ML VIAL IV ONE; FENTANYL CITR 100 MCG/2 ML ONE; NA CHLORIDE 0.9% 1,000 ML ONE; NA CHLORIDE 0.9% 100 ML ONE; ONDANSETRON 4 MG/2 ML VIAL ONE; PIPERACIL/TAZO 3.375 GM VIAL IV ONE
--- OUTSIDE RECORDS SUMMARY | 2023-08-08 16:22 | XMS REPORT | Continuity of Care Document ---
Author Name Unknown Address [address] [facility] [address] [place] [address] [facility] Address [address] [facility] [address] [place] [address] Care Team Providers Care Financial Services Professional Name Role Phone LENARD GARG Primary Care Physician Unavail able Sergio Martinez Attending Clinician Unavailable Radiology Attending Clinician Unavailable RADIOLOGY Attending Clinician Unavailable Doctor Unassigned, Foss Attending Clinician U navailable ANKUSH Attending Clinician Unavailab Rikki Tripp Attending Clinician [phone] Sergio Martinez Admitting Clinician Unavailable Physician, No Primary or Family Admitting Clinic sancho Unavailable JOCELINE EDWARDS Admitting Clinician Unavailable GENNARO BIRD Admitting Clinician Unavail able ANKUSH Admitting Clinician Unavailab mare Payers Payer Name Policy Type Policy Number Effective Date Expirati on Date Source [employer] INDEMNITY [id number] 2000 00:00:00 [place]IC[place]: [employer] [id number] 1982 00:00:00 [employer] [id number] [id number] 00:00:00 Problems Condition Name Condition Details Condition Category Status Onset Date Resolution Date Last Treatment Date Treating Clinician Comments Source Acquired hypothyroi dism Acquired Hypothyroi dism Problem Active 11-09 00:00: 00 [facility] Mixed hyperlipid emia Mixed Hyperlipid emia Problem Active 11-09 00:00: 00 [facility] Chronic gouty arthritis Chronic Gouty Arthritis Problem Active 11-09 00:00: 00 [facility] Seizure disorder Seizure Disorder Problem Active 11-09 00:00: 00 [facility] Allergic rhinitis Allergic Rhinitis Problem Active 11-09 00:00: 00 [facility] Gastroesop hageal reflux disease without esophagiti s Gastroesop hageal Reflux Disease without Esophagiti s Problem Active 11-09 00:00: 00 [facility] Postmenopa usal osteoporos is Postmenopa usal Osteoporos is Problem Active 11-09 00:00: 00 [facility] Vertigo Vertigo Problem Active 10-13 00:00: 00 [facility] Bradycardi a Bradycardi a Problem Active [facility] Seasonal allergic rhinitis Seasonal Allergic Rhinitis Problem Active [facility] Chronic obstructiv e lung disease Chronic Obstructiv e Lung Disease Problem Active [facility] 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 Problem Active [facility] 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 Problem Active [facility] Neurogenic bladder Neurogenic Bladder Problem Active [facility] Onychia of finger Onychia of Finger Problem Active [facility] Onychia of toe Onychia of Toe Problem Active [facility] Osteoarthr itis of multiple joints Osteoarthr itis of Multiple Joints Problem Active [facility] Prolapsed lumbar interverte bral disc Prolapsed Lumbar Interverte bral Disc Problem Active [facility] Tachycardi a Tachycardi a Problem Active [facility] Strain of back muscle Strain of Back Muscle Problem Active [facility] History of gastrointe stinal disease History of Gastrointe stinal Disease Problem Active [facility] Pain of right shoulder joint Pain of Right Shoulder Joint Problem Active [facility] Screening status Screening Status Problem Active [facility] Familial combined hyperlipid emia Familial Combined Hyperlipid emia Problem Active [facility] Gouty arthropath y Gouty Arthropath y Problem Active [facility] 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 Problem Active [facility] 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[place] Problem Active [facility] Allergies, Adverse Reactions, Alerts Allergy Name Allergy Type Status Severity Reaction(s) Onset Date Inactive Date Treating Clinician Comments Source digoxin DA Active U UNKOWN 2-14 00:00: 00 [facility] are [facility] oxycodon e DA Active U UNKOWN 2-14 00:00: 00 [facility] are [facility] aspirin DA Active U UNKOWN 2-14 00:00: 00 [facility] are [facility] tetanus and diphther ia toxoids DA Active U UNKOWN 2-14 00:00: 00 [facility] are [facility] st DIGITALI S LEAF DRUG INGREDI Active Unknown-Cmnt 2017-05 00:00: 00 [facility] LATEX DRUG INGREDI Active Rash 2017-05 00:00: 00 [facility] OXYCODON E DRUG INGREDI Active Unknown-Cmnt 2017-05 00:00: 00 [facility] OXYCODON E HCL DRUG INGREDI Active Unknown-Cmnt 2017-05 00:00: 00 [facility] OXYCODON E TEREPHTH ALATE DRUG INGREDI Active Unknown-Cmnt 2017-05 00:00: 00 [facility] TETANUS TOXOID ADSORBED DRUG Active Unknown-Cmnt 2017-05 00:00: 00 [facility] TETANUS TOXOID FLUID DRUG Active Unknown-Cmnt 2017-05 00:00: 00 [facility] Digitali s [place] Propensi ty to adverse reaction s Active Unknown - See comments 2017-05 00:00: 00 [facility] Latex Propensi ty to adverse reaction s Active Rash 2017-05 00:00: 00 [facility] Oxycodon e Propensi ty to adverse reaction s Active Unknown - See comments 2017-05 00:00: 00 [facility] Oxycodon e Hcl Propensi ty to adverse reaction s Active Unknown - See comments 2017-05 00:00: 00 [facility] Oxycodon e Terephth alate Propensi ty to adverse reaction s Active Unknown - See comments 2017-05 00:00: 00 [facility] Tetanus Toxoid Adsorbed Propensi ty to adverse reaction s Active Unknown - See comments 2017-05 00:00: 00 [facility] Tetanus Toxoid Fluid Propensi ty to adverse reaction s Active Unknown - See comments 2017-05 00:00: 00 [facility] Aspirin Allergy to substanc e Active [facility] Digitali s [place] Allergy to substanc e Active [facility] Oxycodon e Allergy to substanc e Active [facility] Tetanus Toxoid, Adsorbed Allergy to substanc e Active [facility] Social History Social Habit Start Date Stop Date Quantity Comments Source Exposure to SARS-CoV-2 (event) 2022-01-12 00:00:00 2022-01-22 11:51:00 Not sure [facility] Alcohol intake 2018-04-16 00:00:00 2018-04-16 00:00:00 Current non-drinker of alcohol (finding) [facility] Sex Assigned At 1940 00:00:00 1940 00:00:00 [facility] Smoking Status Start Date Stop Date Source Never Smoker [facility] Medications Ordered Medication Name Filled Medication Name Start Date Stop Date Current Medication? Ordering Clinician Indication Dosage Frequency Signature (SIG) Comments Components Source ipratropium 0.02 % nebulizer solution 2017-05 20:51: 32 Yes .5mg Inhale 0.5 mg. [facility] ketoconazol e 2 % cream 2017-05 20:51: 32 Yes Apply to area(s) daily. [facility] ipratropium 0.02 % nebulizer solution 2017-05 20:51: 32 Yes .5mg Inhale 0.5 mg. [facility] ketoconazol e 2 % cream 2017-05 20:51: 32 Yes Apply to area(s) daily. [facility] ipratropium 0.02 % nebulizer solution 2017-05 20:51: 32 Yes .5mg Inhale 0.5 mg. [facility] % cream 2017-05 20:51: 32 Yes Apply to area(s) daily. [facility] ipratropium 0.02 % nebulizer solution 2017-05 20:51: 32 Yes .5mg Inhale 0.5 mg. [facility] ketocon[facility] e 2 % cream 2017-05 20:51: 32 Yes Apply to area(s) daily. [facility] fluticasone 50 mcg/actuati on nasal spray 2017-05 20:51: 31 Yes Use in each nostril daily. [facility] budesonide 0.5 mg/2 mL nebulizer solution 2017-05 20:51: 31 Yes .5mg Inhale 0.5 mg daily. [facility] albuterol 2.5 mg /3 mL (0.083 %) nebulizer solution 2017-05 20:51: 31 Yes 2.5mg Inhale 2.5 mg every 4 (four) hours as needed for Wheezing or Shortness of Breath. [facility] fluticasone 50 mcg/actuati on nasal spray 2017-05 20:51: 31 Yes Use in each nostril daily. [facility] budesonide 0.5 mg/2 mL nebulizer solution 2017-05 20:51: 31 Yes .5mg Inhale 0.5 mg daily. [facility] albuterol 2.5 mg /3 mL (0.083 %) nebulizer solution 2017-05 20:51: 31 Yes 2.5mg Inhale 2.5 mg every 4 (four) hours as needed for Wheezing or Shortness of Breath. [facility] fluticasone 50 mcg/actuati on nasal spray 2017-05 20:51: 31 Yes Use in each nostril daily. [facility] budesonide 0.5 mg/2 mL nebulizer solution 2017-05 20:51: 31 Yes .5mg Inhale 0.5 mg daily. [facility] albuterol 2.5 mg /3 mL (0.083 %) nebulizer solution 2017-05 20:51: 31 Yes 2.5mg Inhale 2.5 mg every 4 (four) hours as needed for Wheezing or Shortness of Breath. [facility] fluticasone 50 mcg/actuati on nasal spray 2017-05 20:51: 31 Yes Use in each nostril daily. [facility] budesonide 0.5 mg/2 mL nebulizer solution 2017-05 20:51: 31 Yes .5mg Inhale 0.5 mg daily. [facility] albuterol 2.5 mg /3 mL (0.083 %) nebulizer solution 2017-05 20:51: 31 Yes 2.5mg Inhale 2.5 mg every 4 (four) hours as needed for Wheezing or Shortness of Breath. [facility] ubidecareno ne (COQ-10 ORAL) 2017-05 20:48: 44 Yes Take by mouth. [facility] aspirin (ADULT LOW DOSE ASPIRIN) 81 mg EC tablet 2017-05 20:48: 44 Yes 162mg Take 162 mg by mouth daily. [facility] albuterol sulfate 90 mcg/actuati on AePB 2017-05 20:48: 44 Yes Inhale. [facility] ubidecareno ne (COQ-10 ORAL) 2017-05 20:48: 44 Yes Take by mouth. [facility] aspirin (ADULT LOW DOSE ASPIRIN) 81 mg EC tablet 2017-05 20:48: 44 Yes 162mg Take 162 mg by mouth daily. [facility] albuterol sulfate 90 mcg/actuati on AePB 2017-05 20:48: 44 Yes Inhale. [facility] ubidecareno ne (COQ-10 ORAL) 2017-05 20:48: 44 Yes Take by mouth. [facility] aspirin (ADULT LOW DOSE ASPIRIN) 81 mg EC tablet 2017-05 20:48: 44 Yes 162mg Take 162 mg by mouth daily. [facility] albuterol sulfate 90 mcg/actuati on AePB 2017-05 20:48: 44 Yes Inhale. [facility] ubidecareno ne (COQ-10 ORAL) 2017-05 20:48: 44 Yes Take by mouth. [facility] aspirin (ADULT LOW DOSE ASPIRIN) 81 mg EC tablet 2017-05 20:48: 44 Yes 162mg Take 162 mg by mouth daily. [facility] albuterol sulfate 90 mcg/actuati on AePB 2017-05 20:48: 44 Yes Inhale. [facility] ipratropium 0.02 % nebulizer solution 2017-05 14:51: 32 Yes .5mg Inhale 0.5 mg. [facility] ketoconazol e 2 % cream 2017-05 14:51: 32 Yes Apply to area(s) daily. [facility] ipratropium 0.02 % nebulizer solution 2017-05 14:51: 32 Yes .5mg Inhale 0.5 mg. [facility] ketoconazol e 2 % cream 2017-05 14:51: 32 Yes Apply to area(s) daily. [facility] ipratropium 0.02 % nebulizer solution 2017-05 14:51: 32 Yes .5mg Inhale 0.5 mg. [facility] ketoconazol e 2 % cream 2017-05 14:51: 32 Yes Apply to area(s) daily. [facility] ipratropium 0.02 % nebulizer solution 2017-05 14:51: 32 Yes .5mg Inhale 0.5 mg. [facility] ketoconazol e 2 % cream 2017-05 14:51: 32 Yes Apply to area(s) daily. [facility] ipratropium 0.02 % nebulizer solution 2017-05 14:51: 32 Yes .5mg Inhale 0.5 mg. [facility] ketoconazol e 2 % cream 2017-05 14:51: 32 Yes Apply to area(s) daily. [facility] ipratropium 0.02 % nebulizer solution 2017-05 14:51: 32 Yes .5mg Inhale 0.5 mg. [facility] ketoconazol e 2 % cream 2017-05 14:51: 32 Yes Apply to area(s) daily. [facility] ipratropium 0.02 % nebulizer solution 2017-05 14:51: 32 Yes .5mg Inhale 0.5 mg. [facility] ketoconazol e 2 % cream 2017-05 14:51: 32 Yes Apply to area(s) daily. [facility] ipratropium 0.02 % nebulizer solution 2017-05 14:51: 32 Yes .5mg Inhale 0.5 mg. [facility] ketoconazol e 2 % cream 2017-05 14:51: 32 Yes Apply to area(s) daily. [facility] fluticasone 50 mcg/actuati on nasal spray 2017-05 14:51: 31 Yes Use in each nostril daily. [facility] budesonide 0.5 mg/2 mL nebulizer solution 2017-05 14:51: 31 Yes .5mg Inhale 0.5 mg daily. [facility] albuterol 2.5 mg /3 mL (0.083 %) nebulizer solution 2017-05 14:51: 31 Yes 2.5mg Inhale 2.5 mg every 4 (four) hours as needed for Wheezing or Shortness of Breath. [facility] fluticasone 50 mcg/actuati on nasal spray 2017-05 14:51: 31 Yes Use in each nostril daily. [facility] budesonide 0.5 mg/2 mL nebulizer solution 2017-05 14:51: 31 Yes .5mg Inhale 0.5 mg daily. [facility] albuterol 2.5 mg /3 mL (0.083 %) nebulizer solution 2017-05 14:51: 31 Yes 2.5mg Inhale 2.5 mg every 4 (four) hours as needed for Wheezing or Shortness of Breath. [facility] fluticasone 50 mcg/actuati on nasal spray 2017-05 14:51: 31 Yes Use in each nostril daily. [facility] budesonide 0.5 mg/2 mL nebulizer solution 2017-05 14:51: 31 Yes .5mg Inhale 0.5 mg daily. [facility] albuterol 2.5 mg /3 mL (0.083 %) nebulizer solution 2017-05 14:51: 31 Yes 2.5mg Inhale 2.5 mg every 4 (four) hours as needed for Wheezing or Shortness of Breath. [facility] fluticasone 50 mcg/actuati on nasal spray 2017-05 14:51: 31 Yes Use in each nostril daily. [facility] budesonide 0.5 mg/2 mL nebulizer solution 2017-05 14:51: 31 Yes .5mg Inhale 0.5 mg daily. [facility] albuterol 2.5 mg /3 mL (0.083 %) nebulizer solution 2017-05 14:51: 31 Yes 2.5mg Inhale 2.5 mg every 4 (four) hours as needed for Wheezing or Shortness of Breath. [facility] fluticasone 50 mcg/actuati on nasal spray 2017-05 14:51: 31 Yes Use in each nostril daily. [facility] budesonide 0.5 mg/2 mL nebulizer solution 2017-05 14:51: 31 Yes .5mg Inhale 0.5 mg daily. [facility] albuterol 2.5 mg /3 mL (0.083 %) nebulizer solution 2017-05 14:51: 31 Yes 2.5mg Inhale 2.5 mg every 4 (four) hours as needed for Wheezing or Shortness of Breath. [facility] fluticasone 50 mcg/actuati on nasal spray 2017-05 14:51: 31 Yes Use in each nostril daily. [facility] budesonide 0.5 mg/2 mL nebulizer solution 2017-05 14:51: 31 Yes .5mg Inhale 0.5 mg daily. [facility] albuterol 2.5 mg /3 mL (0.083 %) nebulizer solution 2017-05 14:51: 31 Yes 2.5mg Inhale 2.5 mg every 4 (four) hours as needed for Wheezing or Shortness of Breath. [facility] fluticasone 50 mcg/actuati on nasal spray 2017-05 14:51: 31 Yes Use in each nostril daily. [facility] budesonide 0.5 mg/2 mL nebulizer solution 2017-05 14:51: 31 Yes .5mg Inhale 0.5 mg daily. [facility] albuterol 2.5 mg /3 mL (0.083 %) nebulizer solution 2017-05 14:51: 31 Yes 2.5mg Inhale 2.5 mg every 4 (four) hours as needed for Wheezing or Shortness of Breath. [facility] fluticasone 50 mcg/actuati on nasal spray 2017-05 14:51: 31 Yes Use in each nostril daily. [facility] budesonide 0.5 mg/2 mL nebulizer solution 2017-05 14:51: 31 Yes .5mg Inhale 0.5 mg daily. [facility] albuterol 2.5 mg /3 mL (0.083 %) nebulizer solution 2017-05 14:51: 31 Yes 2.5mg Inhale 2.5 mg every 4 (four) hours as needed for Wheezing or Shortness of Breath. [facility] ubidecareno ne (COQ-10 ORAL) 2017-05 14:48: 44 Yes Take by mouth. [facility] aspirin (ADULT LOW DOSE ASPIRIN) 81 mg EC tablet 2017-05 14:48: 44 Yes 162mg Take 162 mg by mouth daily. [facility] albuterol sulfate 90 mcg/actuati on AePB 2017-05 14:48: 44 Yes Inhale. [facility] ubidecareno ne (COQ-10 ORAL) 2017-05 14:48: 44 Yes Take by mouth. [facility] aspirin (ADULT LOW DOSE ASPIRIN) 81 mg EC tablet 2017-05 14:48: 44 Yes 162mg Take 162 mg by mouth daily. [facility] albuterol sulfate 90 mcg/actuati on AePB 2017-05 14:48: 44 Yes Inhale. [facility] ubidecareno ne (COQ-10 ORAL) 2017-05 14:48: 44 Yes Take by mouth. [facility] aspirin (ADULT LOW DOSE ASPIRIN) 81 mg EC tablet 2017-05 14:48: 44 Yes 162mg Take 162 mg by mouth daily. [facility] albuterol sulfate 90 mcg/actuati on AePB 2017-05 14:48: 44 Yes Inhale. [facility] ubidecareno ne (COQ-10 ORAL) 2017-05 14:48: 44 Yes Take by mouth. [facility] aspirin (ADULT LOW DOSE ASPIRIN) 81 mg EC tablet 2017-05 14:48: 44 Yes 162mg Take 162 mg by mouth daily. [facility] albuterol sulfate 90 mcg/actuati on AePB 2017-05 14:48: 44 Yes Inhale. [facility] ubidecareno ne (COQ-10 ORAL) 2017-05 14:48: 44 Yes Take by mouth. [facility] aspirin (ADULT LOW DOSE ASPIRIN) 81 mg EC tablet 2017-05 14:48: 44 Yes 162mg Take 162 mg by mouth daily. [facility] albuterol sulfate 90 mcg/actuati on AePB 2017-05 14:48: 44 Yes Inhale. [facility] ubidecareno ne (COQ-10 ORAL) 2017-05 14:48: 44 Yes Take by mouth. [facility] aspirin (ADULT LOW DOSE ASPIRIN) 81 mg EC tablet 2017-05 14:48: 44 Yes 162mg Take 162 mg by mouth daily. [facility] albuterol sulfate 90 mcg/actuati on AePB 2017-05 14:48: 44 Yes Inhale. [facility] ubidecareno ne (COQ-10 ORAL) 2017-05 14:48: 44 Yes Take by mouth. [facility] aspirin (ADULT LOW DOSE ASPIRIN) 81 mg EC tablet 2017-05 14:48: 44 Yes 162mg Take 162 mg by mouth daily. [facility] albuterol sulfate 90 mcg/actuati on AePB 2017-05 14:48: 44 Yes Inhale. [facility] ubidecareno ne (COQ-10 ORAL) 2017-05 14:48: 44 Yes Take by mouth. [facility] aspirin (ADULT LOW DOSE ASPIRIN) 81 mg EC tablet 2017-05 14:48: 44 Yes 162mg Take 162 mg by mouth daily. [facility] albuterol sulfate 90 mcg/actuati on AePB 2017-05 14:48: 44 Yes Inhale. [facility] levothyroxi ne 88 mcg tablet 2017-05 00:00: 00 Yes [facility] levothyroxi ne 88 mcg tablet 2017-05 00:00: 00 Yes [facility] levothyroxi ne 88 mcg tablet 2017-05 00:00: 00 Yes [facility] levothyroxi ne 88 mcg tablet 2017-05 00:00: 00 Yes [facility] levothyroxi ne 88 mcg tablet 2017-05 00:00: 00 Yes [facility] levothyroxi ne 88 mcg tablet 2017-05 00:00: 00 Yes [facility] levothyroxi ne 88 mcg tablet 2017-05 00:00: 00 Yes [facility] levothyroxi ne 88 mcg tablet 2017-05 00:00: 00 Yes [facility] levothyroxi ne 88 mcg tablet 2017-05 00:00: 00 Yes [facility] levothyroxi ne 88 mcg tablet 2017-05 00:00: 00 Yes [facility] levothyroxi ne 88 mcg tablet 2017-05 00:00: 00 Yes [facility] levothyroxi ne 88 mcg tablet 2017-05 00:00: 00 Yes [facility] allopurinol 300 mg tablet 2017-05 00:00: 00 Yes [facility] allopurinol 300 mg tablet 2017-05 00:00: 00 Yes [facility] furosemide 40 mg tablet 2017-05 00:00: 00 Yes [facility] HYDROcodone -acetaminop hen 7.5-325 mg per tablet 2017-05 00:00: 00 Yes [facility] metoprolol succinate XL 50 mg 24 hr tablet 2017-05 00:00: 00 Yes [facility] pantoprazol e 40 mg EC tablet 2017-05 00:00: 00 Yes [facility] KCL 20 mEq tablet 2017-05 00:00: 00 Yes [facility] simvastatin 20 mg tablet 2017-05 00:00: 00 Yes [facility] furosemide 40 mg tablet 2017-05 00:00: 00 Yes [facility] allopurinol 300 mg tablet 2017-05 00:00: 00 Yes [facility] furosemide 40 mg tablet 2017-05 00:00: 00 Yes [facility] HYDROcodone -acetaminop hen 7.5-325 mg per tablet 2017-05 00:00: 00 Yes [facility] metoprolol succinate XL 50 mg 24 hr tablet 2017-05 00:00: 00 Yes [facility] HYDROcodone -acetaminop hen 7.5-325 mg per tablet 2017-05 00:00: 00 Yes [facility] pantoprazol e 40 mg EC tablet 2017-05 00:00: 00 Yes [facility] KCL 20 mEq tablet 2017-05 00:00: 00 Yes [facility] simvastatin 20 mg tablet 2017-05 00:00: 00 Yes [facility] allopurinol 300 mg tablet 2017-05 00:00: 00 Yes [facility] metoprolol succinate XL 50 mg 24 hr tablet 2017-05 00:00: 00 Yes [facility] furosemide 40 mg tablet 2017-05 00:00: 00 Yes [facility] HYDROcodone -acetaminop hen 7.5-325 mg per tablet 2017-05 00:00: 00 Yes [facility] metoprolol succinate XL 50 mg 24 hr tablet 2017-05 00:00: 00 Yes [facility] pantoprazol e 40 mg EC tablet 2017-05 00:00: 00 Yes [facility] KCL 20 mEq tablet 2017-05 00:00: 00 Yes [facility] simvastatin 20 mg tablet 2017-05 00:00: 00 Yes [facility] pantoprazol e 40 mg EC tablet 2017-05 00:00: 00 Yes [facility] KCL 20 mEq tablet 2017-05 00:00: 00 Yes [facility] allopurinol 300 mg tablet 2017-05 00:00: 00 Yes [facility] furosemide 40 mg tablet 2017-05 00:00: 00 Yes [facility] HYDROcodone -acetaminop hen 7.5-325 mg per tablet 2017-05 00:00: 00 Yes [facility] metoprolol succinate XL 50 mg 24 hr tablet 2017-05 00:00: 00 Yes [facility] pantoprazol e 40 mg EC tablet 2017-05 00:00: 00 Yes [facility] KCL 20 mEq tablet 2017-05 00:00: 00 Yes [facility] simvastatin 20 mg tablet 2017-05 00:00: 00 Yes [facility] simvastatin 20 mg tablet 2017-05 00:00: 00 Yes [facility] allopurinol 300 mg tablet 2017-05 00:00: 00 Yes [facility] furosemide 40 mg tablet 2017-05 00:00: 00 Yes [facility] HYDROcodone -acetaminop hen 7.5-325 mg per tablet 2017-05 00:00: 00 Yes [facility] metoprolol succinate XL 50 mg 24 hr tablet 2017-05 00:00: 00 Yes [facility] pantoprazol e 40 mg EC tablet 2017-05 00:00: 00 Yes [facility] KCL 20 mEq tablet 2017-05 00:00: 00 Yes [facility] simvastatin 20 mg tablet 2017-05 00:00: 00 Yes [facility] allopurinol 300 mg tablet 2017-05 00:00: 00 Yes [facility] furosemide 40 mg tablet 2017-05 00:00: 00 Yes [facility] HYDROcodone -acetaminop hen 7.5-325 mg per tablet 2017-05 00:00: 00 Yes [facility] metoprolol succinate XL 50 mg 24 hr tablet 2017-05 00:00: 00 Yes [facility] pantoprazol e 40 mg EC tablet 2017-05 00:00: 00 Yes [facility] KCL 20 mEq tablet 2017-05 00:00: 00 Yes [facility] simvastatin 20 mg tablet 2017-05 00:00: 00 Yes [facility] allopurinol 300 mg tablet 2017-05 00:00: 00 Yes [facility] furosemide 40 mg tablet 2017-05 00:00: 00 Yes [facility] HYDROcodone -acetaminop hen 7.5-325 mg per tablet 2017-05 00:00: 00 Yes [facility] metoprolol succinate XL 50 mg 24 hr tablet 2017-05 00:00: 00 Yes [facility] pantoprazol e 40 mg EC tablet 2017-05 00:00: 00 Yes [facility] KCL 20 mEq tablet 2017-05 00:00: 00 Yes [facility] simvastatin 20 mg tablet 2017-05 00:00: 00 Yes [facility] allopurinol 300 mg tablet 2017-05 00:00: 00 Yes [facility] furosemide 40 mg tablet 2017-05 00:00: 00 Yes [facility] HYDROcodone -acetaminop hen 7.5-325 mg per tablet 2017-05 00:00: 00 Yes [facility] metoprolol succinate XL 50 mg 24 hr tablet 2017-05 00:00: 00 Yes [facility] pantoprazol e 40 mg EC tablet 2017-05 00:00: 00 Yes [facility] KCL 20 mEq tablet 2017-05 00:00: 00 Yes [facility] simvastatin 20 mg tablet 2017-05 00:00: 00 Yes [facility] allopurinol 300 mg tablet 2017-05 00:00: 00 Yes [facility] furosemide 40 mg tablet 2017-05 00:00: 00 Yes [facility] HYDROcodone -acetaminop hen 7.5-325 mg per tablet 2017-05 00:00: 00 Yes [facility] metoprolol succinate XL 50 mg 24 hr tablet 2017-05 00:00: 00 Yes [facility] pantoprazol e 40 mg EC tablet 2017-05 00:00: 00 Yes [facility] KCL 20 mEq tablet 2017-05 00:00: 00 Yes [facility] simvastatin 20 mg tablet 2017-05 00:00: 00 Yes [facility] allopurinol 300 mg tablet 2017-05 00:00: 00 Yes [facility] furosemide 40 mg tablet 2017-05 00:00: 00 Yes [facility] HYDROcodone -acetaminop hen 7.5-325 mg per tablet 2017-05 00:00: 00 Yes [facility] metoprolol succinate XL 50 mg 24 hr tablet 2017-05 00:00: 00 Yes [facility] pantoprazol e 40 mg EC tablet 2017-05 00:00: 00 Yes [facility] KCL 20 mEq tablet 2017-05 00:00: 00 Yes [facility] simvastatin 20 mg tablet 2017-05 00:00: 00 Yes [facility] allopurinol 300 mg tablet 2017-05 00:00: 00 Yes [facility] furosemide 40 mg tablet 2017-05 00:00: 00 Yes [facility] HYDROcodone -acetaminop hen 7.5-325 mg per tablet 2017-05 00:00: 00 Yes [facility] metoprolol succinate XL 50 mg 24 hr tablet 2017-05 00:00: 00 Yes [facility] pantoprazol e 40 mg EC tablet 2017-05 00:00: 00 Yes [facility] KCL 20 mEq tablet 2017-05 00:00: 00 Yes [facility] simvastatin 20 mg tablet 2017-05 00:00: 00 Yes [facility] gabapentin 600 mg tablet 02-03 00:00: 00 Yes [facility] gabapentin 600 mg tablet 02-03 00:00: 00 Yes [facility] gabapentin 600 mg tablet 02-03 00:00: 00 Yes [facility] gabapentin 600 mg tablet 02-03 00:00: 00 Yes [facility] gabapentin 600 mg tablet 02-03 00:00: 00 Yes [facility] gabapentin 600 mg tablet 02-03 00:00: 00 Yes [facility] gabapentin 600 mg tablet 02-03 00:00: 00 Yes [facility] gabapentin 600 mg tablet 02-03 00:00: 00 Yes [facility] gabapentin 600 mg tablet 02-03 00:00: 00 Yes [facility] gabapentin 600 mg tablet 02-03 00:00: 00 Yes [facility] gabapentin 600 mg tablet 02-03 00:00: 00 Yes [facility] gabapentin 600 mg tablet 02-03 00:00: 00 Yes [facility] albuterol sulfate 2.5 mg/3 mL (0.083 %) solution for nebulizatio n INHALE ONE VIAL VIA NEBULIZER FOUR TIMES DAILY DIRECTED albuterol sulfate 2.5 mg/3 mL (0.083 %) solution for nebulizatio n INHALE ONE VIAL VIA NEBULIZER FOUR TIMES DAILY DIRECTED No albuterol sulfate 2.5 mg/3 mL (0.083 %) solution for nebulizati on INHALE ONE VIAL VIA NEBULIZER FOUR TIMES DAILY DIRECTED [facility] allopurinol 300 mg tablet TAKE 1 TABLET BY MOUTH EVERY DAY allopurinol 300 mg tablet TAKE 1 TABLET BY MOUTH EVERY DAY No allopurino l 300 mg tablet TAKE 1 TABLET BY MOUTH EVERY DAY [facility] Aspir-81 mg tablet,joseph yed release Take 2 tablets by oral route. Aspir-81 mg tablet,joseph yed release Take 2 tablets by oral route. No 2 Aspir-81 mg tablet,del ayed release Take 2 tablets by oral route. [facility] budesonide 0.5 mg/2 mL suspension for nebulizatio n INHALE ONE VIAL VIA NEBULIZER TWICE DAILY budesonide 0.5 mg/2 mL suspension for nebulizatio n INHALE ONE VIAL VIA NEBULIZER TWICE DAILY No budesonide 0.5 mg/2 mL suspension for nebulizati on INHALE ONE VIAL VIA NEBULIZER TWICE DAILY [facility] butalbital- acetaminoph en-caffeine 50 mg-300 mg-40 mg capsule TAKE 1 CAPSULE BY MOUTH THREE TIMES DAILY butalbital- acetaminoph en-caffeine 50 mg-300 mg-40 mg capsule TAKE 1 CAPSULE BY MOUTH THREE TIMES DAILY No butalbital -acetamino phen-caffe ine 50 mg-300 mg-40 mg capsule TAKE 1 CAPSULE BY MOUTH THREE TIMES DAILY [facility] cefdinir 300 mg capsule Take 1 capsule every 12 hours by oral route. cefdinir 300 mg capsule Take 1 capsule every 12 hours by oral route. No 1capsul e(s) Q12H cefdinir 300 mg capsule Take 1 capsule every 12 hours by oral route. [facility] cetirizine 10 mg tablet Take 1 tablet every day by oral route. cetirizine 10 mg tablet Take 1 tablet every day by oral route. No 1 Q1D cetirizine 10 mg tablet Take 1 tablet every day by oral route. [facility] Co Q-10 10 mg capsule Take by oral route as directed. Co Q-10 10 mg capsule Take by oral route as directed. No Co Q-10 10 mg capsule Take by oral route as directed. [facility] fluticasone propionate 50 mcg/actuati on nasal spray,suspe nsion [place] 2 sprays every day by intranasal route. fluticasone propionate 50 mcg/actuati on nasal spray,suspe nsion [place] 2 sprays every day by intranasal route. No 2spray( s) Q1D fluticason e propionate 50 mcg/actuat ion nasal spray,susp ension [place] 2 sprays every day by intranasal route. [facility] furosemide 40 mg tablet Take 1 tablet every 12 hours by oral route. furosemide 40 mg tablet Take 1 tablet every 12 hours by oral route. No furosemide 40 mg tablet Take 1 tablet every 12 hours by oral route. [facility] gabapentin 600 mg tablet TAKE 1 TABLET BY MOUTH THREE TIMES DAILY FOR 7 DAYS gabapentin 600 mg tablet TAKE 1 TABLET BY MOUTH THREE TIMES DAILY FOR 7 DAYS No gabapentin 600 mg tablet TAKE 1 TABLET BY MOUTH THREE TIMES DAILY FOR 7 DAYS [facility] hydrocodone 7.5 mg-acetamin ophen 325 mg tablet TAKE 1 TABLET BY MOUTH THREE TIMES DAILY NEEDED FOR PAIN hydrocodone 7.5 mg-acetamin ophen 325 mg tablet TAKE 1 TABLET BY MOUTH THREE TIMES DAILY NEEDED FOR PAIN No hydrocodon e 7.5 mg-acetami nophen 325 mg tablet TAKE 1 TABLET BY MOUTH THREE TIMES DAILY NEEDED FOR PAIN [facility] ipratropium bromide 0.02 % solution for inhalation Inhale 2.5 mL every 6 hours by inhalation route. ipratropium bromide 0.02 % solution for inhalation Inhale 2.5 mL every 6 hours by inhalation route. No 2.5mL Q6H ipratropiu m bromide 0.02 % solution for inhalation Inhale 2.5 mL every 6 hours by inhalation route. [facility] ketoconazol e 2 % topical cream APPLY TO AFFECTED AREA(S) OF SKIN TWICE DAILY ketoconazol e 2 % topical cream APPLY TO AFFECTED AREA(S) OF SKIN TWICE DAILY No ketoconazo le 2 % topical cream APPLY TO AFFECTED AREA(S) OF SKIN TWICE DAILY [facility] levothyroxi ne 75 mcg tablet TAKE 1 TABLET BY MOUTH EVERY DAY levothyroxi ne 75 mcg tablet TAKE 1 TABLET BY MOUTH EVERY DAY No levothyrox ine 75 mcg tablet TAKE 1 TABLET BY MOUTH EVERY DAY [facility] meclizine 25 mg tablet TAKE 1 TABLET BY MOUTH THREE TIMES DAILY meclizine 25 mg tablet TAKE 1 TABLET BY MOUTH THREE TIMES DAILY No meclizine 25 mg tablet TAKE 1 TABLET BY MOUTH THREE TIMES DAILY [facility] Medrol ([place]) 4 mg tablets in a dose pack Take 1 dose pk every day by oral route. Medrol ([place]) 4 mg tablets in a dose pack Take 1 dose pk every day by oral route. No 1dose pk(s) Q1D Medrol ([place]) 4 mg tablets in a dose pack Take 1 dose pk every day by oral route. [facility] metoprolol succinate ER 50 mg tablet,exte nded release 24 hr TAKE 1 TABLET BY MOUTH EVERY DAY metoprolol succinate ER 50 mg tablet,exte nded release 24 hr TAKE 1 TABLET BY MOUTH EVERY DAY No metoprolol succinate ER 50 mg tablet,ext ended release 24 hr TAKE 1 TABLET BY MOUTH EVERY DAY [facility] pantoprazol e 40 mg tablet,joseph yed release TAKE 1 TABLET BY MOUTH EVERY DAY pantoprazol e 40 mg tablet,joseph yed release TAKE 1 TABLET BY MOUTH EVERY DAY No pantoprazo le 40 mg tablet,del ayed release TAKE 1 TABLET BY MOUTH EVERY DAY [facility] potassium chloride ER 20 mEq tablet,exte nded release(par t/cryst) TAKE 1 TABLET BY MOUTH EVERY 12 HOURS potassium chloride ER 20 mEq tablet,exte nded release(par t/cryst) TAKE 1 TABLET BY MOUTH EVERY 12 HOURS No potassium chloride ER 20 mEq tablet,ext ended release(pa rt/cryst) TAKE 1 TABLET BY MOUTH EVERY 12 HOURS [facility] simvastatin 20 mg tablet TAKE 1 TABLET BY MOUTH EVERY DAY simvastatin 20 mg tablet TAKE 1 TABLET BY MOUTH EVERY DAY No simvastati n 20 mg tablet TAKE 1 TABLET BY MOUTH EVERY DAY [facility] Vital Signs Vital Name Observation Time Observation Value Comments S ource Height 2021-01-28 00:00:00 65 [in_i] [facility] Procedures Procedure Date / Time Performed Performing Clinician Source [id number] 2023-07-02 00:00:[address] [facility] [id number] 2023-07-02 00:00:[address] [facility] [id number] 2023-07-02 00:00:[address] [facility] XR CHEST 2 VW 2022-08-11 17:10:07 Gennaro Bird [facility] MR THORACIC SPINE WO CONTRAST 2022-01-22 18:23:26 Requisition, Paper [facility] ASSIGNMENT OF BENEFITS 2022-01-22 16:49:25 Docto r Unassigned, Foss [facility] MR LUMBAR SPINE WO CONTRAST 2021-06-14 20:54:09 Requisition, Paper [facility] MR CERVICAL SPINE WO CONTRAST 2021-06-14 20:52:50 Requisition, Paper [facility] CONSENT/REFUSAL FOR DIAGNOSIS AND TREATMENT 2021-06-14 18:10:15 Doctor Unassigned, Foss [facility] ASSIGNMENT OF BENEFITS 2021-06-14 18:10:02 Docto r Unassigned, Foss [facility] AUTHORIZATION FOR RELEASE OF PHI 2020-01-30 05:01:00 Doctor Unassigned, Foss [facility] MR LUMBAR SPINE WO CONTRAST 2020-01-19 15:43:07 Requisition, Paper [facility] XR HIPS 2 VW BILATERAL 2020-01-19 15:03:15 Isael Dee [facility] ASSIGNMENT OF BENEFITS 2020-01-19 14:36:22 Docto r Unassigned, Foss [facility] Operative Procedure on Knee 2010-05-18 00:00:00 [facility] Total Knee Replacement 2006-05-18 00:00:00 [facility] Carpal Tunnel Surgery 2004-05-18 00:00:00 [facility] Operative Procedure on Knee 2004-05-18 00:00:00 [facility] Neck/chest Surgery Procedure 2004-05-18 00:00:00 [facility] Operation on Bladder [facility] Bilateral Mastectomy [facility] Partial Hysterectomy [facility] Biopsy of Breast [facility] Shoulder Surgery Procedure [facility] Procedure on Gallbladder [facility] Removal [facility] Encounters Start Date/Time End Date/Time Encounter Type Admission Type Attending Clinicians Care Facility Care Department Encounter ID Source 2023-07-01 22:54:00 2023-07-03 17:33:00 Inpatient EM Pérez Martinez [facility] [id number] [facility] 2023-07-02 08:57:00 2023-07-02 08:57:00 Outpatient Pérez Martinez [facility] REF [id number] [facility] are [facility] 2022-08-11 11:59:15 2022-08-11 23:59:00 Hospital Encounter Radiology [facility] 1.2.840.114 350.1.13.10 4.2.7.2.686 [id number] [facility] 2022-08-11 11:59:00 2022-08-11 11:59:00 Hospital Encounter Radiology [facility] [id number] 350.1.13.10 4.2.7.2.686 [id number] [facility] 2022-08-11 00:00:00 2022-08-11 11:59:00 Outpatient R RADIOLOGY [facility] [id number] [facility] 2022-08-11 00:00:00 2022-08-11 00:00:00 Letter (Out) Doctor Unassigned, Foss [facility] [id number] 350.1.13.10 4.2.7.2.686 [id number] [facility] 2022-01-22 11:51:44 2022-01-22 23:59:00 Outpatient R RADIOLOGY [facility] [id number] [facility] 2022-01-22 11:51:44 2022-01-22 23:59:00 Hospital Encounter Radiology [facility] [id number] 350.1.13.10 4.2.7.2.686 [id number] [facility] 2022-01-22 00:00:00 2022-01-22 00:00:00 Orders Only Doctor Unassigned, Foss [facility] 1.2.840.114 350.1.13.10 4.2.7.2.686 [id number] [facility] 2021-06-20 12:43:13 2021-06-20 23:59:00 Outpatient R RADIOLOGY [facility] [id number] [facility] 2021-06-20 12:43:13 2021-06-20 23:59:00 Hospital Encounter Radiology [facility] 1.2.840.114 350.1.13.10 4.2.7.2.686 [id number] [facility] 2021-06-14 12:12:19 2021-06-14 23:59:00 Hospital Encounter Radiology [facility] 1.2.840.114 350.1.13.10 4.2.7.2.686 [id number] [facility] 2021-06-14 12:11:53 2021-06-14 12:11:53 Outpatient R RADIOLOGY [facility] [id number] [facility] 2021-06-14 12:11:53 2021-06-14 12:11:53 Hospital Encounter Radiology [facility] [id number] 350.1.13.10 4.2.7.2.686 [id number] [facility] 2021-04-02 10:47:00 2021-04-02 10:47:00 Outpatient ANTHONY_JEF FREY_NP [facility] [id number] [facility] 2021-03-24 12:38:00 2021-03-24 12:38:00 Outpatient ANTHONY_JEF FREY_NP [facility] [id number] [facility] 2021-01-28 09:20:00 2021-01-28 09:20:00 Outpatient SARAN SANTOS_TERRY [facility] [id number] [facility] 2021-01-28 00:00:00 2021-01-28 00:00:00 Rikki Steele, [employer] GR[employer]ER: [address], [address], [place] [address] , Ph. [facility] [place] [id number] [facility] 2021-01-28 00:00:00 2021-01-28 00:00:00 Outpatient Rikki Steele [facility] [id number] 2020-10-04 01:01:00 2020-10-04 01:01:00 Outpatient SARAN SANTOS_TERRY [facility] [id number] [facility] 2020-01-30 00:00:00 2020-01-30 00:00:00 Orders Only Doctor Unassigned, Foss [facility] 1.2.840.114 350.1.13.10 4.2.7.2.686 [id number] [facility] 2020-01-19 09:44:32 2020-01-19 23:59:00 Hospital Encounter Radiology [facility] 1.2.840.114 350.1.13.10 4.2.7.2.686 [id number] [facility] 2020-01-19 09:41:36 2020-01-19 09:43:00 Outpatient R RADIOLOGY [facility] [id number] [facility] 2020-01-19 09:41:36 2020-01-19 09:43:00 Hospital Encounter Radiology [facility] [id number] 350.1.13.10 4.2.7.2.686 [id number] [facility] 2020-01-19 00:00:00 2020-01-19 00:00:00 Orders Only Doctor Unassigned, Foss [facility] 1.2.840.114 350.1.13.10 4.2.7.2.686 [id number] [facility] Results Test Description Test Time Test Comments Results Result Co mments Source COMPREHENSIVE METABOLIC [id number] 23:17:00* Test Item Value Reference Range Interpretation Comme nts SODIUM (test code = NA) 145 mmol/L 136-145 N POTASSIUM (test code = K) 5.0 mmol/L 3.5-5.1 N CHLORIDE (test code = CL) 113 mmol/l 98-107 H CARBON DIOXIDE (test code = CO2) 24 mmol/L 20-31 N GLUCOSE (test code = GLU) 80 mg/dL 74-106 N BLOOD UREA NITROGEN (test code = BUN) 21 mg/dL 9-23 N GLOMERULAR FILTRATION RATE (test code = GFR) >=60 max estimate mL/min >60 The Glomerular Filtration Rate is a calculated parameterbased on serum Creatinine, patient age and sex. GFR valuesless than 60 mL/min/1.73 square meters are indicative ofChronic Kidney Disease. Values less than 15 mL/min/1.73square meters indicate Kidney failure. The calculation forGFR is based on the CKD-EPI (2020) calculation. This formulais race indifferent and is the recommended formula for GFRby the National Kidney Foundation for Adults.The GFR will not calculate if the sex is unknown or if thepatient's age is <18 years. CREATININE (test code = CREAT) 0.90 mg/dL 0.55-1.02 N TOTAL PROTEIN (test code = PROT) 6.3 g/dL 5.7-8.2 N ALBUMIN (test code = ALB) 4.1 g/dL 3.2-4.8 N CALCIUM (test code = CA) 8.6 mg/dL 8.7-10.4 L BILIRUBIN TOTAL (test code = BILT) 0.7 mg/dL 0.3-1.2 N SGOT/AST (test code = AST) 470 U/L <34 H SGPT/ALT (test code = ALT) 175 U/L 10-49 H ALKALINE PHOSPHATASE (test code = ALKP) 205.0 U/L 46-116 H [id number] 23:17:00* Test Item Value Reference Range [facility]ation [facility] (test code = MAG) 2.0 mg/dL 1.6-2.6 N B-TYPE NATRIURETIC [id number] 23:03:00* Test Item Value Reference Range Interpretation Comme [facility] B-TYPE NATRIURETIC PEPTIDE ( test code = BNP) 35 pg/mL <100 N THROMBOPLASTIN TIME [id number] 22:44:00* Test Item Value Reference Range [facility]ation [facility] THROMBOP[facility] PARTIAL (test code = PTT) 29.9 secs 23.8-34.8 N INTERPRETATIVE D VICKY: Therapeutic range: Unfractionated Heparin: 60-90 seconds Argatroban: 60-90 seconds PROTHROMBIN [id number] 22:44:00* Test Item Value Reference Range Interpretation [facility] PROTHR[facility]BIN TIME PATIENT (test code = PTP) 14.0 SECONDS 10.3-12.9 H INTERNATIONAL NORMAL RATIO (test code = INR) 1.26 0.9-1.11 H INR goals are individualized based on patient specificfactors. The following are only general guidelines: Indications: INR Goal:1. Treatment of venous thromboembolism and 2.0 - 3.0 systemic anticoagulation in a variety of conditions, including atrial fibrillation and mechanical heart valves 2. Mechanical mitral and tricuspid valves, 2.5 - 3.5 systemic anticoagulation for high-risk conditions CBC W/AUTO [id number] 22:34:00* Test Item Value Reference Range Interpretation Comme [facility] WHITE BLOOD CELL (test code = WBC) 5.4 x10 3/uL 4.8-10.8 N RED BLOOD CELL (test code = RBC) 3.53 x10 6/uL 4.20-5.40 L HEMOGLOBIN (test code = HGB) 10.2 g/dL 12.0-16.0 L HEMATOCRIT (test code = HCT) 33.7 % 37.0-47.0 L MEAN CELL VOLUME (test code = MCV) 95.5 fL 81.0-99.0 N MEAN CELL HGB (test code = MCH) 28.9 pg 27-31 N MEAN CELL HGB CONCENTRATION (test code = MCHC) 30.3 G/DL 33-36.5 L RED CELL DISTRIBUTION WIDTH (test code = RDW) 13.3 % 12.9-16.9 N PLATELET COUNT (test code = PLT) 131 x10 3/uL 150-440 L MEAN PLATELET VOLUME (test c ode = MPV) 12.1 fL 8.9-12.4 N NEUTROPHIL % (test code = NT%) 57.9 % 42.2-75.2 N LYMPHOCYTE % (test code = LY%) 29.0 % 20.5-51.1 N MONOCYTE % (test code = MO%) 10.5 % 1.7-9.3 H EOSINOPHIL % (test code = EO%) 1.8 % 0.0-7.0 N BASOPHIL % (test code = BA%) 0.6 % 0-2.5 N NEUTROPHIL # (test code = NT#) 3.15 x10 3/uL 1.80-7.70 N LYMPHOCYTE # (test code = LY#) 1.58 x10 3/uL 1.00-4.80 N MONOCYTE # (test code = MO#) 0.57 x10 3/uL 0.00-0.80 N EOSINOPHIL # (test code = EO#) 0.10 x10 3/uL 0.00-0.45 N BASOPHIL # (test code = BA#) 0.03 x10 3/uL 0.0-0.20 N - XR CHEST 1 [id number] 22:27:00 [facility] 1940 Sex: FPatient Name: JERRY NICHOLS Unit No: [id number] EXAMS: CPT CODE: [id number] XR CHEST 1 V [id number] EXAM: - XR CHEST 1 V COMPARISON: None available at the time of interpretation. LOCATION: C3 HISTORY: chest pain FINDINGS: Single view of the chest. Spinal stimulator noted. No pneumothorax. The lungs are clear without significant effusions. The mediastinal contours are unremarkable/unchanged. No acute osseous findings are present. IMPRESSION: No acute cardiopulmonary abnormality. at 2227 Reported and signed by: LINDSAY POWELL M.D. CC: Ralph Alfonso MD Technologist: Sury Leblanc Time: DAP (Gy m2): Air Kerma (mGy): Trscr Dt/Tm: 07/01/2023 (2226) by:MaliHV2 Printed Date/Time: 07/01/2023 (2230) Name: JTJERRYSYLVIE VAZ [facility] Phys: Ralph Javier MD [address] : 1940 Age: 83 Sex: [place] [address] Loc: P.ERS Exam Date: 07/01/2023 Status: REG ER PH: FAX: PAGE 1 Signed ReportMR LUMBAR SPINE WO [id number] 15:53:55HISTORY: Chronic back pain. History of fall in [...] T11-T12 disc spaces and minimal bulging ofthe discat T12-L1 causing minimal thecal sac compression. No cordcompression or foraminal narrowing. L1-L2:Shallow Schmorl's nodes in the vertebral endplates, minimal [...] in the lateral upper plate of L4 surroundedbydegenerative marrow. L4-L5: Degenerative disc disease with narrowing of the disc more than 80%,shallow Schmorl's nodes in the vertebral endplates and minimal disc bulgeinto the spinal canal withoutsignificant thecal sac compression. Mildfacet arthritis is noted. No significant foraminal narrowing. L5-S1: Grade 1 spondylolisthesis of L5 over S1 with right L5 spondylolysis,shallow Schmorl's nodes surrounded by degenerative marrow, disc spacenarrowing by more than 70%, vacuum phenomenon in the disc material, diffusebulging of the disc and bilateral hypertrophic facet arthritis. 6 mmdegenerative cystic lesion in the left side of the lower endplate of I4ohlbl. Both neural foramina are elongated and narrowed, [...] less at L3-L4, upper lumbar levelsand lower thoraciclevels with multilevel facet arthritis discussed abovewith mild spinal stenosis at L3-L4 causing circumferential thecal saccompression. No significant interval change in the findings when comparedwith 2018 study.3. Bilateral renal cysts, unchanged.4. Approximately 10 stones are suspected in the common duct with dilatedcommon bile duct up to 17 to 18 mm. Similar findings were present in 2018study,however, should be further investigated by ultrasound and/or MRCP. [facility], Radiant Results Inft User - 01/19/2020 [...] for aortic aneurysm or enlargedlymph nodes or hydronephrosis.Bilateral renal cysts noted, larger on the rightside.T10-T11, T11-T12, T12-L1: Shallow Schmorl's nodes in the vertebralendplates of T10, T11 and T12. Disc degeneration at all 3 levels isslightly narrowed T10-T11 and T11-T12 disc spaces and minimalbulging ofthe disc at T12-L1 causing minimal thecal [...] left side of the lower endplate of I1mxtmp. Both neural foramina are elongated and narrowed, left more thanright with moderate left nerve root compression suspected.CONCLUSIONS:1. Grade 1 spondylolisthesis at L5-S1 with a [...] arthritis discussed abovewith mild spinal stenosis at L3-L 4 causing circumferential thecal saccompression. No significant interval change in the findings when comparedwith 2018 study.3. Bilateral renal cysts, unchanged.4. Approximately 10 stones are suspected in the common duct with dilatedcommon bile duct up to 17 to 18 mm. Similar findings were present in 2018study, however, should be further investigated by ultrasound and/or MRCP. [facility] VW [id number] 15:08:33 HISTORY: Primary osteoarthritis of both hips. [...] signs of arthritis in left hip joint. [facility], Radiant Results Inft User - 01/19/2020 [...] right side. Left side showed minimal signs ofarthritis.CONCLUSIONS:1. Mild right hip joint degenerative arthritis.2. Minimal signs of arthritis in left hip joint.[facility] UP EXT W/O [id number] 17:00:00[address] [address]CUZDLJHFBT IMAGING REPORTPatient Name: JERRY NICHOLS RDate of Service: [id number]: 78 Sex: F Order #: [id number] Room: OPEDOB: 1940 X-Ray Number: [id number] Record Number: [id number] Hospital Number: [id number]: Nubia LEGGETTing Physician: AYLA LEGGETT right shoulder without contrast 3:00 PMHISTORY: RIGHT shoulder pain, fell in October.FINDINGS:There is motion artifact on the exam is the patientwas unable to holdstill. This markedly degrades the quality of the study.There is an old healed fracture of the proximal RIGHT humerus.There is signal alteration within the rotator cuff suggestive ofrotatorcuff tendinosis. There is also a tiny partial thickness undersurface smallrotator cuff tear involving the distal aspect of the tendon critical zonefar anteriorly measuring approximately 8 mm. T here is no tendon retraction.There is no full-thickness tear.There is no obvious displaced labral tear although a subtle labral tearcould go undetected due to motion artifact.The biceps tendon lies in the biceps groove.No soft tissue mass or cyst.Mild AC joint osteoarthritis.Mild bursal fluid in the subacromial subdeltoid bursa.IMPRESSION:Limited exam due to significant motion artifact.Tiny partial-thickness rotator cuff tear with associated rotator cufftendinosis. No full-thickness tear.Old healed proximal RIGHT humerus fracture deformity.Electronically Signed By: Clovis Reed M.D., 03/03/2019 4:58 PMLegally authenticated by LULI CUEVA 2019-03-03 16:58:32 Notes Date/Time Note Provider Source 2023-07-04 14:31:00 [id number] MD/pwgkBjJCwvJr2BFwH/QlseTLbL QWiJKvyskKudW1UVtiIafejTqI63890-95-42S66:31:[address] [address]NZBJWKP NAME: JERRY NICHOLS ADMIT DATE: 07/01/23ACCOUNT NO: [id number] ROOM NO: .[facility] AGE: 83 REPORT TYPE: eECHOCARDIOGRAM REPORT SEX: F ADMITTING PHYSICIAN: Sergio Treviño MDATTENDING PHYSICIAN: Sergio Treviño MD *[facility]*[address] [place] [address]Ggsxy Transthoracic Echocardiogram Patient: Jerry Nicholstudy Date: 4BP: 151 / 69URN: [id number]: [id number]#: [id number]: 2Age: 83Gender: FHeight: 61 in / 154.9 cmWeight: 146 lb / 66.2 kgBMI/BSA: 27.6 kg/m 2 / 1.71 m 2*Ordering Physician: * Lizzie Chaparro *Interpreting Physician: * Royal Macario MD*Hogshead Liner: * Danny Lang Indications: Chf. Study data: Transthoracic echocardiogram. Complete 2D, complete spectralDoppler, and color Doppler. Location: Bedside. Findings Left ventricle: The cavity size is normal. Wall thickness is mildlyincreased. Systolic function is normal. The estimated ejection fraction is55-60%. Wall motion is normal; there are no regional wall motionabnormalities. Left ventricular diastolic function parameters are normal.Right ventricle: The cavity size is normal. Systolic function is normal.Left atrium: The atrium is normal in size.Right atrium: The atrium is normal in size.Aorta: PATIENT NAME: JERRY NICHOLS RAY Aortic root: The root is normal-sized.Aortic valve: The valve is trileaflet. The leaflets are mildly calcified.There is no evidence of stenosis. There is no regurgitation.Mitral valve: The annulus is calcified. The leaflets are mildly thickenedand mildly calcified. There is no evidence of stenosis. There is mildregurgitation.Tricuspid valve: The valve is structurally normal. The leaflets are normalthickness. There is trivial regurgitation.Pulmonic valve: The valve is structurally normal. The leaflets are normalthickness. There is no regurgitation.Pericardium: There is no pericardial effusion.Systemic veins:Inferior vena cava: The IVC is normal-sized. Respirophasic diameter changesare in the normal range (>= 50%). Measurements Left ventricle Value Ref MIREYA, LAX 3.0 cm 3.8 - 5.2 ESD, LAX 2.2 cm 2.2 - 3.5 FS, LAX 28 % 27 - 45 MIREYA major ax, A2C 6.8 cm --------- ESD major ax, A2C 5.8 cm --------- IVS, ED 1.0 cm 0.6 - 0.9 ESD 2.2 cm 2.2 - 3.5 FS 28 % 27 - 45 PW, ED 1.2 cm 0.6 - 0.9 IVS/PW, ED 0.85 --------- EF 56 % 54 - 74 Mass 99 g 66 - 150 Mass/bsa 58 g/m 2 44 - 88 Mass/ht 2.7 30.39 g/m 2.7 --------- EF, MM on 2D Teich. 56 % >=55 E', lat grazyna, TDI 8.6 cm/sec >=10.0 E/e', lat grazyna, TDI 9 <=13 E', med grazyna, TDI 9.9 cm/sec >=7.0 E/e', med grazyna, TDI 7 --------- E', avg, TDI 9.3 cm/sec --------- E/e', avg, TDI 8 <=14 LVOT Value Ref Diam, S 1.74 cm --------- Area 2.4 cm 2 --------- Peak selin, S 0.89 m/sec --------- Mean selin, S 0.67 m/sec --------- VTI, S 19.4 cm --------- Peak grad, S 3 mm Hg --------- Mean grad, S 2 mm Hg --------- SV 46 ml --------- SV/bsa 27 ml/m 2 --------- Right ventricle Value Ref MIREYA, LAX 3.7 cm --------- PATIENT NAME: JERRY NICHOLS RAY MIREYA 3.7 cm --------- TAPSE, 2D 1.8 cm >=1.7 TAPSE, MM 1.8 cm >=1.7 S' lateral 14.8 cm/sec >=9.5 Left atrium Value Ref LA ID 3.9 cm --------- AP dim, ES 3.9 cm 2.7 - 3.8 AP dim ES, LAX 3.9 cm 2.7 - 3.8 SI dim ES, LAX 3.9 cm --------- Vol/bsa, S 25 ml/m 2 16 - 34 Vol, ES, 2-p 47 ml --------- Vol/bsa, ES, 2-p 27 ml/m 2 16 - 34 LA/Ao root ratio 1.18 --------- AP dim, ES MM 3.9 cm 2.7 - 3.8 LA/Ao root ratio, MM 1 --------- Right atrium Value Ref Area, ES 19 cm 2 10 - 18 Area, ES, A4C 19 cm 2 10 - 18 Aortic valve Value Ref Peak v, S 1.3 m/sec --------- Mean v, S 0.94 m/sec --------- VTI, S 27.4 cm --------- Mean grad, S 4 mm Hg --------- Peak grad, S 6.6 mm Hg --------- LVOT/AV, VTI ratio 0.71 --------- CHRISTAL, VTI 1.69 cm 2 --------- LVOT/AV, Vpeak ratio 0.69 --------- CHRISTAL, Vmax 1.64 cm 2 --------- Mitral valve Value Ref Mean v, D 0.84 m/sec --------- Peak E 0.09 m/sec --------- Peak A 1.19 m/sec --------- VTI leaflet coapt 22.0 cm --------- MiV/LVOT VTI 1.1 --------- Decel time 82 ms --------- PHT 33 ms --------- Mean grad, D 3 mm Hg --------- Peak grad, D 7.6 mm Hg --------- Peak E/A ratio 0.62 --------- MVA, PHT 6.6 cm 2 --------- Tricuspid valve Value Ref TR peak v 2.2 m/sec <=2.8 Peak RV-RA grad, S 20 mm Hg --------- Aortic root Value Ref Root diam 3.3 cm 2.5 - 3.9 Root diam, ED MM 3.9 cm --------- Ascending aorta Value Ref PATIENT NAME: JERRY NICHOLS AAo AP diam, S 3.2 cm --------- Inferior vena cava Value Ref Diam 1.6 cm <=2.1 Pulmonary veins Value Ref Peak v, S 0.45 m/sec --------- Peak v, D 0.48 m/sec --------- Peak S/D ratio 0.93 --------- S/D ratio, VTI 0.93 --------- Peak A rev v 0.29 m/sec --------- A rev duration 156 ms --------- Conclusions Summary: 1. Left ventricle: The cavity size is normal. Wall thickness is mildly increased. Systolic function is normal. The estimated ejection fraction is 55-60%. Wall motion is normal; there are no regional wall motion abnormalities. Left ventricular diastolic function parameters are normal.2. Mitral valve: The annulus is calcified. The leaflets are mildly thickened and mildly calcified.Electronically signed by Royal Macario MD07/04/2023 14:31 at 1431 PATIENT NAME: JERRY NICHOLS :31:0 0P.[id number] for patient whsaOIRCXMRYVOFQBZ1634-41-45S02:31:55 [facility] 2023-07-03 12:56:00 [id number] gvO/a/cFeJGyfOs4ucptYlRHi/QnX 1T9CPMmWcdwmJwluqIw7N/NdA8o4292-46-51B88:56:00 [facility] ([facility])Discharge SummaryREPORT#:[id number] REPORT STATUS: SignedREPORT INITIALIZATION DATE:07/03/23 TIME: 1255 PATIENT: JERRY NICHOLS UNIT #: [id number]#: [id number] ROOM: [facility] BED: ADOB: [birth year] AGE: 83 SEX: F ATTEND: Sergio Martinez MDADM AUTHOR: Sergio Martinez MDREPT SERVICE DT/TIME: 07/03/23 1256* ALL edits or amendments must be made on the electronic/computer document * General InformationDischarge date: 07/03/23Discharge diagnosis:symptomatic bradycardiaHospital course:83yo F admitted for management of symptomatic bradycardia. #Bradycardia: 2/2 1st degree heart block w/s underlying Afib; MICHAEL s/p PM(07/02)-resume [facility] outpt cardiology clinic f/u scheduled #HTN: stable-hold metoprolol #HLD: ASCVD > 7.5%-continue statin #Hypothyroid: chronic-continue supplementation #GERD: chronic-continue PPI #Dementia: w/o behavioral disturbance-continue namenda #Dispo: DC homePt. condition on discharge: stable Med Rec Med RecDischarge meds:Stop taking the following medications:Metoprolol Tartrate (Lopressor) 50 MG TAB 50 MILLIGRAM ORAL DAILY. Continue taking these medications:Gabapentin (Neurontin) 300 MG CAP 300 MILLIGRAM ORAL THREE TIMES A DAY. Instructions: 300mg 2 message clerk. 3 times daily Furosemide (Lasix) 40 MG TAB 40 MILLIGRAM ORAL DAILY. Levothyroxine (Synthroid) 75 MCG TAB 75 MICROGRAM ORAL DAILY. Memantine (Namenda) 10 MG TAB 10 MILLIGRAM ORAL TWICE DAILY. Meclizine (Antivert) 25 MG TAB 25 MILLIGRAM ORAL THREE TIMES A DAY. Simvastatin (Zocor) 20 MG TAB 20 MILLIGRAM ORAL DAILY. Rivaroxaban (Xarelto) 20 MG TAB [address] MILLIGRAM ORAL DA[address] (Protonix) 40 MG TAB.DR 40 MILLIGRAM ORAL DAILY. Start taking the following new medications:Doxycycline Monohydrate (Monodox) 100 MG CAP 100 MILLIGRAM ORAL EVERY 12 HOURS. Qty = 10 No Refills Objective Free Text Obj NotesFree Text Obj Notes:General: AAO x 3, NADHEENT: NC/AT, PERRLA, EOMINeck: full ROM, no JVD or tendernessCV: normal heart sounds, RRR, no MGRPulm: no respiratory distress, symmetric chest expansionGI: soft, nontender, +BS, no distention/organomegalyNeuro: non-focal, no motor or sensory deficits, CN II-XII grossly intactExt: ROM WNL, no CCEPsych: stable affect, no SI/HI or hallucinations Discharge Instructions PCPPCP:PCP: No Primary or Family Physician )( Discharge to: Home/Self Care Discharge InstructionsAdditional Discharge Routines: PCP Follow-Up, Spectrographic Analyst Follow-Up)( Diet: Cardiac)( Activity: As ToleratedDischarge management: greater than 30 mins Follow-up AppointmentsPCP follow up: PCP: No Primary or Family Physician PCP follow up timeframe: In 1-2 weeksConsulting provider 1: Provider 1: Jose Ramon De La Cruz MD Specialty: Cardiology-Electrophysio Consult follow up timeframe: In 1-2 weeks at 1258 RPT #:[id number] OF REPORTDSDischarge aethwcx3096-13-32Q11:56:00P.[id number] ailable for patient voleUYAWZTSKGMMDFJ6377-31-70Z28:58:40 [facility] 2023-07-03 09:55:00 [id number] ARZqBTRoXPd9w80vHpKwsiyxXyuUo lg1FGhmCJ6gb9FzaYTEpu9afGQ15194-22-36V97:55:00 [facility] ([facility]) Cardiology Progress Notes REPORT #: [id number] REPORT STATUS: Signed DATE: 07/03/23 TIME: 954 PATIENT: JERRY NICHOLS UNIT #: [id number] #: [id number] ROOM #: P.0426 BED: A : 42 AGE: 83 SEX: F ATTEND: Sergio Martinez MDA AUTHOR: Lizzie Chaparro MD CF1 ATTENTION EDITS and/or ADDENDA must be made in Patient Keeper for this note. Edits and ammendments created in [employer] are not visible in Patient Keeper or the legal medical record (HPF). -- CO-SIGNATURE -- COMMENTS:I obtained the history and performed the physical examination in supervision ofDr. Lizzie Chaparro. I concur with his findings with the following additions: S/p PPM w/Dr. De La Cruz for CHB. Interrogation wnl. No PTX on CXR. Gen: NAD, A Ou4VZVFK: anicteric sclera, MMMNeck: supple, no JVDCV: RRR, no m/r/gLungs: CTABAbd: soft, NTNDExt: no c/c/eNeuro: non-focalPsych: alert, appropriate, mood and affect normal The plan is to continue post-op abx. Will f/u with Dr. De La Cruz in 2 weeks asoutpatient. Time spent on patient care: I spent > 30 minutes on patient care, including 15minutes spent jointly with Dr. Lizzie Chaparro. > 50% of time spent on counseling/coordination of care. Signed in PatientKeeper by GENNARO LAUREANO MD on 07/05/23 at 23:02 -- ASSESSMENT AND PLAN -- GENERAL ASSESSMENT:83 years old lady with PMH of HTN, COPD, recent treated for COVID-19 Infection,who developed complete heart block with a heart rate in 30s but currently therate is 70 beats per minute with first degree AV block. S/P PPM yesterday.Doing well this AM, no overnight issues. PROBLEMS: 1: Heart block AV completeA/P: History ofBB at homeOff the AVN BlockerCurrent heart rate improved with first degree AV block. s/p PPM by Dr. De La Cruz.OK to be discharged from stand point. -- SUBJECTIVE -- CHIEF COMPLAINT:Dizziness HPI:Patient was admitted from [facility] for evaluation of symptomaticbradycardia in the setting of sick sinus syndrome.The patient underwent PPM yesterday without complications, remained stableovernight. -REVIEW OF SYSTEMS- GENERAL: Negative for fever, malaise, fatigue.EYES: Bilaterally legally blind.EARS/NOSE/THROAT: Negative for sore throat. No otalgia. No rhinorrhea.RESPIRATORY: Negative for dyspnea or wheeze. No cough.CARDIOVASCULAR: Negative for chest pain or palpitations. No extremity swelling.GASTROINTESTINAL: Negative for abdominal pain or nausea. No emesis. No diarrhea.MUSCULOSKELETAL: Negative for joint stiffness, pain, or arthralgias.SKIN: Negative for rashes. No pruritus.NEUROLOGICAL: Negative for headache. No vertigo. Denies paresthesias.ENDOCRINE: Negative for cold intolerance, heat intolerance, polyphagia, polydipsia, polyuria, weight change, fatigue.HEMATALOGIC / LYMPHORETICULAR: Negative for excessive bleeding, unusual masses. -- OBJECTIVE -- VITALS (07/02 09:55 - 07/03 09:55):Temperature F: 98.3 (98.3 - 101.3)Temperature C: 37.4Temperature source: OralPulse Rate 91 (79 - 117)Respiratory rate: 13 (10 - 36)Blood pressure: 112/58 (94/51 - 153/103)Blood pressure source: Monitor I/Os (07/02 07:00 - 07/03 07:00):Net -400Output 400 -EXAM- GENERAL: Well developed, well nourished, in no apparent distress.HEAD: Normocephalic, atraumatic.EARS: TM's intact and clear, normal canals, grossly normal hearing.NOSE: No deformity, no discharge, no inflammation, no lesions.MOUTH: Oropharynx without deformities or lesions, normal mucosa..NECK: No masses, no thyromegaly, no abnormal cervical nodes, trachea midline.CHEST: Grossly normal appearance.LUNGS: Clear bilaterally with normal respiratory effort.HEART: Regular rate and rhythm, normal S1, S2, no murmurs, no rubs, no gallops, no clicks.ABDOMEN: Soft, non-tender, no organomegaly, no masses noted.MUSCULOSKELETAL: No deformity, no scoliosis noted of thoracic or lumbar spine, joint ROM grossly normal, normal gait and station.EXTREMITIES: No clubbing, no cyanosis, no edema.NEUROLOGICAL: No focal deficits, cranial nerves II-XII grossly intact, normal sensation, normal reflexes, normal coordination, normal muscle strength, normal tone.PULSES: Pulses normal in all extremities.GENITOURINARY: Normal external genitalia.SKIN: Intact without significant lesions, or rashes.PSYCHIATRIC: Alert and oriented to time, person, place. Normal mood and affect, intact judgment and insight. -- DATA -- MEDICATIONS SIMVASTATIN 20 MG PO DAILYMECLIZINE HCL 25 MG PO TIDRIVAROXABAN 20 MG PO DAILYMEMANTINE HCL 10 MG PO BIDGABAPENTIN 300 MG PO TIDPANTOPRAZOLE 40 MG PO DAILYACETAMINOPHEN 650 MG PO Q4H PRNLEVOTHYROXINE SODIUM 75 MCG PO DAILYFUROSEMIDE 40 MG PO DAILYMUPIROCIN 1 APPLIC NASAL BIDMINOCYCLINE HCL 100 MG PO Q12HR Signed in PatientKeeper by LIZZIE CHAPARRO MD1 on 07/03/23 at 17:18 Cosigned by GENNARO LAUREANO MD on 07/05/23 at 23:02 at 2302 at 2302ATTENTION EDITS and/or ADDENDA must be made in Patient Keeper for this note. Edits and ammendments created in [facility] are not visible in Patient Keeper or the legal medical record (HPF). RPT #: [id number] OF REPORTPRProgress ishz5073-61-59P03:55:00P.DA-WGJD33522270-3781REMs ailable for patient upazPKPRJDPRZMRNXE1282-73-30C86:03:35 [facility] 2023-07-03 09:22:00 [id number] +ZlLQa+nR01rOqHuc5K5vB4x0URJ9 B4lSkSC+RDDD9wA/FJ9fOm1hJqq8653-58-94A31:22:00 [facility] ([facility]) Cardiology Progress Notes REPORT #: [id number] REPORT STATUS: Signed DATE: 07/03/23 TIME: 921 PATIENT: JERRY NICHOLS UNIT #: [id number] #: [id number] ROOM #: P.0426 BED: A : 42 AGE: 83 SEX: F ATTEND: Sergio Martinez [facility] AUTHOR: Mariam Chaudhry ATTENTION EDITS and/or ADDENDA must be made in Patient Keeper for this note. Edits and ammendments created in [employer] are not visible in Patient Keeper or the legal medical record (HPF). -- CO-SIGNATURE -- COMMENTS:I have personally seen and examined the patient independently, and reviewed thepatient's history, exam, and all cardiac and laboratory data on 07/03/23. Iagree with the history, physical, and the assessment and plan as outlined byMariam Carroll. is doing better s/p PPM placement. Will require close f/u withEP/Cardiology. Signed in PatientKeeper by BOGDAN STREET MD on 07/26/23 at 21:08 -- ASSESSMENT AND PLAN -- PROBLEMS: 1: Sick sinus syndromeA/P: The patient is a 83-year-old female has a PMHx of hyperlipidemia,hypertension, h/o CVA x2 (in 1964 and 1965, on Xarelto), h/o cardiac arrest x3(due to in 1964), hypothyroidism, breast tumor (s/p surgery), legallyblind (in 1964), asthma, COVID (2023). She was taken to [facility] with complaints of chest tightness, shortness of breath with exertionand syncopal episode. She was found to have a HR in the 30s. She wastranscutaneously paced and transferred here [facility] for higher level ofcare. EKG showed first degree heart block. Chest x-ray showed no acutecardiopulmonary abnormality. She was on metoprolol tartrate 50mg daily. Sheunderwent DC-PPM placement on 07/02/[address] De La Cruz. - Echo completed- S/p DC-PPM on 07/02/23- Dr. De La Cruz with electrophysiology consulted.- From cardiology standpoint the patient is stable and can be discharged whencleared by consultants -- SUBJECTIVE -- CHIEF COMPLAINT:Syncope, first degree AV block PATIENT NARRATIVE:S/p DC-PPM on 07/02/23. She denies complaints today. No acute events overnight. -REVIEW OF SYSTEMS- GENERAL: Negative for fever, malaise, fatigue.EYES: Negative for blurry vision. No diplopia.EARS/NOSE/THROAT: Negative for sore throat. No otalgia. No rhinorrhea.RESPIRATORY: Negative for dyspnea or wheeze. No cough.CARDIOVASCULAR: Negative for chest pain or palpitations. No extremity swelling.GASTROINTESTINAL: Negative for abdominal pain or nausea. No emesis. No diarrhea.GENITOURINARY: Negative for dysuria, frequency, or urgency. No gross hematuria.MUSCULOSKELETAL: Negative for joint stiffness, pain, or arthralgias.SKIN: Negative for rashes. No pruritus.NEUROLOGICAL: Negative for headache. No vertigo. Denies paresthesias.PSYCHIATRIC: Negative for specific complaints. -- OBJECTIVE -- VITALS (07/02 07:57 - 07/03 07:57):Temperature F: 98.3 (98.0 - 101.3)Temperature C: 37.4Temperature source: OralPulse Rate 87 (71 - 117)Respiratory rate: 16 (11 - 36)Blood pressure: 94/54 (94/51 - 163/103)Blood pressure source: Monitor I/Os (07/02 07:00 - 07/03 07:00):Net -400Output 400 -EXAM- OTHER: Constitutional: Well developed, well nourished patient, in no acute distress. Derm/Integumentary: Warm and dry with no rashes, sores, or lesions. HEENT: Eyes-sclera clear and white, symmetrical w/ no lag. ENT - Palate and gums pink, mucosa moist, no pallor/cyanosis. Neck: supple with no masses, no thyromegaly, No JVD. Respiratory: Clear to auscultation. Heart: S1S2+, Regular Rate and Rhythm, No murmurs, rubs, or gallops. + DC-PPM Gastrointestinal: + Bowel Sounds all quadrants. Soft, nontender with no masses or organomegaly; No HJR. Musculoskeletal: Equal strength in all extremities. No weakness. Neurology: Alert and oriented X 3. Calm, cooperative affect. No focal deficits. Extremities: + peripheral pulses. No clubbing, cyanosis. No lower extremity edema. -- DATA -- MEDICATIONS SIMVASTATIN 20 MG PO DAILYMECLIZINE HCL 25 MG PO TIDRIVAROXABAN 20 MG PO DAILYMEMANTINE HCL 10 MG PO BIDGABAPENTIN 300 MG PO TIDPANTOPRAZOLE 40 MG PO DAILYACETAMINOPHEN 650 MG PO Q4H PRNLEVOTHYROXINE SODIUM 75 MCG PO DAILYFUROSEMIDE 40 MG PO DAILYMUPIROCIN 1 APPLIC NASAL BID -- ATTESTATION -- CARE ACTIVITIES / CARE COORDINATION: - I have reviewed the history and repeated the lamb elements - I have seen and examined this patient - I have reviewed the progress in the clinical course since the lastexamination - I have discussed the patient's condition with other members of the care team ADDITIONAL DETAIL:Plan of care discussed with Dr. Bogdan Street Signed in PatientKeeper by MARIAM CHAUDHRY on 07/04/23 at 15:[address] MD on 07/26/23 at 21:08 at 2108 at 2108ATTENTION EDITS and/or ADDENDA must be made in Patient Keeper for this note. Edits and ammendments created in [facility] are not visible in Patient Keeper or the legal medical record (HPF). [facility] #: [id number] OF REPORTPRProgress [id number]:22:00P.QM-[id number] ailable for patient dsibOFMVGDIGKJQSTC6229-79-16B79:08:59 [facility] 2023-07-02 18:00:00 [id number] MOGKaQ/K9SWqA9c7vD7jTOwEpFykU 8QCxjYFMO2vQ2+NATNBEKJciLvE9223-57-28C35:00:00 [facility] ([facility]) Operative Report REPORT #: [id number] REPORT STATUS: Signed DATE: 07/02/23 TIME: 1800 PATIENT: JERRY NICHOLS UNIT #: [id number] #: [id number] ROOM #: P.0426 BED: A : 42 AGE: 83 SEX: F ATTEND: Sergio Martinez [facility] AUTHOR: Jose Ramon De La Cruz MD ATTENTION EDITS and/or ADDENDA must be made in Patient Keeper for this note. Edits and ammendments created in [employer] are not visible in Patient Keeper or the legal medical record (HPF). -- OPERATION -- SURGERY START DATE/TIME:2023-07-02 18:02 PRE-OPERATIVE DIAGNOSIS:See Description POST-OPERATIVE DIAGNOSIS:See Description NAME OF PROCEDURE:See Description SURGEON:Jose Ramon De La Cruz MD CHEMISTRY QUALITY CONTROL ANALYST(S):See Description ANESTHESIA:See Description ESTIMATED BLOOD LOSS:10 ml's FINDINGS:See Description SPECIMEN(S) REMOVED AND/OR ALTERED:See Description COMPLICATION(S):See Description -- DESCRIPTION -- DESCRIPTION OF TECHNIQUE/PROCEDURE:Direct Left Bundle Dual Chamber Pacemaker Implantation Procedure Note Pairer Substandard: Jose Ramon De La Cruz MDFellow: [None]Facility: [facility] Scientific Affairs: [place]ley Referring Physician: MD Silvester Date of Procedure: 07/02/23 Preprocedure Diagnosis:Sick Sinus Syndrome Procedure Performed:Implantation of a dual chamber PPM (68172) The procedure was performed utilizing moderate sedation with split doses of IVVersed and fentanyl administered by a nurse trained in conscious sedation underthe direct supervision of the performing physician. Additionally localanesthetic was administered to the sites of catheter access. Throughout the procedure, the patient was monitored by a radiology nurse. Thepatient s vital signs were stable throughout the procedure, including cardiacrhythm and oxygen saturation. Neurological checks were also performed duringthe procedure. TOTAL INTRA SERVICE TIME: 30 minutes 3mg versed, 100mcg fentanyl EBL: MinimalSpecimen Removed: NoneComplications: NoneCondition: Stable Summary:The patient was brought to the electrophysiology suite in the fasting state andwas prepped and draped in the usual sterile fashion. A Time Out was held and the following information was confirmed/verified:Patient NamePatient Date of BirthMedical Record NumberProcedure TypeLateralityPertinent Medical ComorbiditiesAllergiesRecent Laboratory ValuesRecent Imaging Results Ultrasound was initially used to assess potential access sites and patency ofthe [left] axillary vein. The vein was confirmed to be visibly patent onultrasound. By the use of modified Seldinger technique and under directultrasound guidance of needle tip, two venipunctures were obtained in theaxillary vein with a micropuncture needle and two 0.035 J-wires wereintroduced. Ultrasound images were stored locally on the ultrasound device. An incision was made in the left pectoral area inferior to the clavicle. Usinga combination of sharp and blunt dissection with electrocautery the incisionwas carried down to the level of the pectoralis fascia and a pocket was createdabove the pectoralis muscle. The previous J wires were then harvested and twopeel-away vascular sheaths were then placed. A ventricular pacing electrode was placed in the septal aspect near the position of the left bundle in the right ventricle. Adequate pacing and sensingwas confirmed, the sheath was peeled away, and the lead was sewn into positionwith 2-0 silk pop-off suture. A right atrial lead was placed in the right atrial appendage, adequate pacingwas confirmed, the sheath was peeled away, and the lead was sewn into positionwith 2-0 silk pop-off suture. Copious amounts of antibiotic solution were thenused to irrigate the pocket. The generator was then connected to the leads,adequate connections of both leads to the generator were confirmed. Appropriatesensing, pacing impedance, and pacing thresholds were tested and verifiedthrough the device. Adequate hemostasis and lead placement were verified once again and then thepocket was closed with two layers of continuous 2.0 Vicryl sutures and 4.0monocryl at the surface with dermabond at skin level. The patient tolerated theprocedure well. A sterile pressure dressing was applied. The patient s arm wasimmobilized and the patient was transferred from the lab in stable condition. Recommendations-Patient to receive a chest xray post procedure to evaluate for lead positioning-Patient is to take antibiotics by mouth for 5 days post procedure-Two week follow up in the office for device check-Patient to be enrolled in home monitoring-Patient to remove pressure dressing tomorrow at home-Patient to wear sling for first 24 hours and thereafter the first three nights-Additional instructions provided in written format to the patient Jose Ramon De La Cruz M.D.Cardiac ElectrophysiologistTexas Cardiac Arrhythmia Signed in PatientKeeper by Jose Ramon DeL a Cruz MD on 07/02/23 at 19:06 at 1906ATTENTION EDITS and/or ADDENDA must be made in Patient Keeper for this note. Edits and ammendments created in [facility] are not visible in Patient Keeper or the legal medical record (HPF). RPT #: [id number] OF REPORTOPOperative wflspl6450-85-71Y90:00:00P.NA-[id number] Available for patient oolwFFJLQMTCDQQQVG2684-05-25T62:07:37 [facility] 2023-07-02 12:03:00 [id number] TiFsvDH+GSJWkJK7qolnaoj9Z2dzg GciFPUXs4I20SyQDwHRqbr9BKy53937-44-32D63:03:10494 8-0033 [facility] [address] [place] [address] [id number] NAME: JERRY NICHOLS ADMIT DATE: 07/01/23ACCOUNT NO: [id number] ROOM NO: [facility] AGE: 83 REPORT TYPE: eELECTROCARDIOGRAM SEX: F ADMITTING PHYSICIAN: Sergio Treviño MDATTENDING PHYSICIAN: Sergio Treviño MD Order:[id number] Reason : hx of bradycardia Test Date/Time Stamp:ThuJul 02 2023 12:03:51Blood Pressure : / mmHGVent. Rate : 081 BPM Atrial Rate : 081 BPM P-R Int : 206 ms QRS Dur : 078 ms QT Int : 366 ms P-R-T Axes : 023 006 044 degrees QTc Int : 425 ms Normal sinus rhythmNormal ECGWhen compared with ECG of 01-JUL-2023 22:05, (Unconfirmed)CA interval has decreasedConfirmed by ROYAL MACARIO ([id number]) on 07/05/2023 8:00:10 AM Referred By: Henrik Treviño Confirmed by:ROYAL MACARIO at 0800 PATIENT NAME: JERRY NICHOLS .[id number] AVAvailable for patient fzswTSLNADBUAUEVGS9274-93-36Z49:00:33 [facility] 2023-07-02 10:23:00 [id number] c3sMkMpC4mbs3H/g5/oJqBwsM2lbO m8/n4byOD3a6vwjznhmDt1wYFjI4133-84-35U63:23:00 [facility] ([facility]) Med Order Sheet REPORT #: [id number] REPORT STATUS: Signed DATE: 07/02/23 TIME: 1023 PATIENT: JERRY NICHOLS UNIT #: [id number] #: [id number] ROOM #: [facility] BED: A : 42 AGE: 83 SEX: F ATTEND: Sergio Martinez [facility] AUTHOR: Lizzie Chaparro MD CF1 ATTENTION EDITS and/or ADDENDA must be made in Patient Keeper for this note. Edits and ammendments created in [facility] are not visible in Patient Keeper or the legal medical record (HPF). Admission Medication Reconciliation -- CONTINUED / CHANGED HOME MEDICATIONS -- Home: Furosemide Tab (Lasix Tab) 40 MG PO DAILYHosp: Furosemide Tab (Lasix Tab) 40 MG PO DAILY Home: Gabapentin Cap (Neurontin Cap) 300 MG PO TID (300mg 2 message clerk. 3 timesdaily)Hosp: Gabapentin Cap (Neurontin Cap) 300 MG PO TID - 300mg 2 message clerk. 3 times daily Home: Levothyroxine Tab (Synthroid Tab) 75 MCG PO DAILYHosp: Levothyroxine Tab (Synthroid Tab) 75 MCG PO DAILY Home: Meclizine Tab (Antivert Tab) 25 MG PO TIDHosp: Meclizine Tab (Antivert Tab) 25 MG PO TID Home: Memantine Tab (Namenda Tab) 10 MG PO BIDHosp: Memantine Tab (Namenda Tab) 10 MG PO BID Home: Pantoprazole DR Tab (Protonix Tab) 40 MG PO DAILYHosp: Pantoprazole DR Tab (Protonix Tab) 40 MG PO starting today and then DAILY Home: Rivaroxaban Tab (Xarelto Tab) 20 MG PO DAILYHosp: Rivaroxaban Tab (Xarelto Tab) 20 MG PO starting today and then DAILY Home: Simvastatin Tab (Zocor Tab) 20 MG PO DAILYHosp: Simvastatin Tab (Zocor Tab) 20 MG PO starting today and then DAILY -- STOPPED HOME MEDICATIONS -- Home: Metoprolol Tartrate Tab (Lopressor Tab) 50 MG PO DAILY at 1023ATTENTION EDITS and/or ADDENDA must be made in Patient Keeper for this note. Edits and ammendments created in [facility] are not visible in Patient Keeper or the legal medical record ([facility]). [facility] #: [id number] OF REPORTCLClinical taqo4954-19-73T80:23:00P.HA-[id number] ailable for patient davrCHHBNFTIETEPFD6245-24-33W14:23:51 [facility] 2023-07-02 10:12:00 [id number] /WVLYEnhcE32nkt99+EfpnmEy9208-53-15S87:12:00 [facility] ([facility]) Cardiology Consultation REPORT #: [id number] REPORT STATUS: Signed DATE: 07/02/23 TIME: 1012 PATIENT: JERRY NICHOLS UNIT #: [id number] #: [id number] ROOM #: [facility] BED: A : 42 AGE: 83 SEX: F ATTEND: Sergio Martinez [facility] AUTHOR: Lizzie Chaparro MD CF1 ATTENTION EDITS and/or ADDENDA must be made in Patient Keeper for this note. Edits and ammendments created in [employer] are not visible in Patient Keeper or the legal medical record (HPF). -- CO-SIGNATURE -- COMMENTS:Agree with above from José Miguel Dawson DO. I discussed the case with thecardiology fellow and agree with the findings and helped develop theplan of care as documented in their note. 83yo hx HTN, COPD, Covid, atrial fibrillation with symptomatic bradycardia. Sick Sinus Syndrome-Recurrent episodes of symptomatic bradycardia-On metoprolol for comorbid atrial fibrillation/atrial tacycardia-Discussed options going forward including pacemaker, wishes to proceed-Risks/benefits discusse din detail Jose Ramon De La Cruz, MDCardiac ElectrophysiologistTexas Cardiac Arrhythmia Signed in PatientKeeper by JOSE RAMON DE LA CRUZ MD on 07/06/23 at 18:40 -- ASSESSMENT AND PLAN -- GENERAL ASSESSMENT:83 years old lady with PMH of HTN, COPD, recent treated for COVID-19 Infection,who developed complete heart block with a heart rate in 30s but currently therate is 70 beats per minute with first degree AV block. PROBLEMS: 1: Heart block AV completeA/P: History ofBB at homeOff the AVN BlockerCurrent heart rate improved with first degree AV block.EP consulted for evaluation of PPMPatient is agreeable to the PPM. -- HISTORY -- CONSULT REQUESTED BY:Royal Macario MD DATE/TIME AT BEDSIDE:2023-07-02 REASON FOR CONSULT:Symptomatic Bradycardia CHIEF COMPLAINT:Dizziness HPI:Mrs. Nichols is a 83 years old lady with PMH of HTN, COPD, CHF ?, legally blindbilaterally since 1964, who was recently discharged from hospital aftertreatment for COVID-19 infection, in the late May and discharged early .The patient suffered syncopal episode and [facility] She was found to have a heart rate of 30 beats per minute. Thepatient has had a systolic blood pressure in 60-70.The patient apparently also has had Metoprolol and Dig[facility].The patient is off of any atrio-ventricular shaniqua yang. The patient was seenthis morning, denied any symptoms.The patient, currently has a heart rate of 70 plus with first degree AV block. -SOCIAL HISTORY- -ALCOHOL USE- DETAILS/COMMENTS:None LIVING SITUATION:Lives with her two daughters. -- ALLERGIES/HOME MEDS -- ALLERGIES:aspirin (Unknown - Allergy)digoxin (Unknown - Allergy)oxycodone (Unknown - Allergy)tetanus and diphtheria toxoids (Unknown - Allergy) HOME MEDICATIONS:Furosemide Tab (Lasix Tab) 40 MG PO DAILYGabapentin Cap (Neurontin Cap) 300 MG PO TIDLevothyroxine Tab (Synthroid Tab) 75 MCG PO DAILYMeclizine Tab (Antivert Tab) 25 MG PO TIDMemantine Tab (Namenda Tab) 10 MG PO BIDMetoprolol Tartrate Tab (Lopressor Tab) [address] Tab (Protonix Tab) 40 MG PO DAILYRivaroxaban Tab (Xarelto Tab) 20 MG PO DAILYSimvastatin Tab (Zocor Tab) 20 MG PO DAILY -- SUBJECTIVE -- -REVIEW OF SYSTEMS- GENERAL: Negative for fever, malaise, fatigue.EYES: Bilaterally legally blind.EARS/NOSE/THROAT: Negative for sore throat. No otalgia. No rhinorrhea. RESPIRATORY: Negative for dyspnea or wheeze. No cough.CARDIOVASCULAR: Negative for chest pain or palpitations. No extremity swelling.GASTROINTESTINAL: Negative for abdominal pain or nausea. No emesis. No diarrhea.MUSCULOSKELETAL: Negative for joint stiffness, pain, or arthralgias.SKIN: Negative for rashes. No pruritus.NEUROLOGICAL: Negative for headache. No vertigo. Denies paresthesias.ENDOCRINE: Negative for cold intolerance, heat intolerance, polyphagia, polydipsia, polyuria, weight change, fatigue.HEMATALOGIC / LYMPHORETICULAR: Negative for excessive bleeding, unusual masses. -- OBJECTIVE -- VITALS (07/01 10:12 - 07/02 10:12):Temperature F: 98.0Temperature C: 36.8 (36.8 - 37.2)Temperature source: OralPulse Rate 77 (71 - 87)Respiratory rate: 19 (14 - 20)Blood pressure: 137/60 (137/60 - 165/89)Blood pressure source: Monitor -EXAM- GENERAL: Well developed, well nourished, in no apparent distress.HEAD: Normocephalic, atraumatic.EARS: TM's intact and clear, normal canals, grossly normal hearing.NOSE: No deformity, no discharge, no inflammation, no lesions.MOUTH: Oropharynx without deformities or lesions, normal mucosa..NECK: No masses, no thyromegaly, no abnormal cervical nodes, trachea midline.CHEST: Grossly normal appearance.LUNGS: Clear bilaterally with normal respiratory effort.HEART: Regular rate and rhythm, normal S1, S2, no murmurs, no rubs, no gallops, no clicks.ABDOMEN: Soft, non-tender, no organomegaly, no masses noted.MUSCULOSKELETAL: No deformity, no scoliosis noted of thoracic or lumbar spine, joint ROM grossly normal, normal gait and station.EXTREMITIES: No clubbing, no cyanosis, no edema.NEUROLOGICAL: No focal deficits, cranial nerves II-XII grossly intact, normal sensation, normal reflexes, normal coordination, normal muscle strength, normal tone.PULSES: Pulses normal in all extremities.GENITOURINARY: Normal external genitalia.SKIN: Intact without significant lesions, or rashes.PSYCHIATRIC: Alert and oriented to time, person, place. Normal mood and affect, intact judgment and insight. -- DATA -- LABS TROPI (07/01/23 22:17)TROPONIN-I 16.3 L BNP (07/01/23 22:16)B-TYPE NATRIURETIC PEPTIDE 35 PTT (07/01/23 22:16)THROMBOPLASTIN TIME PARTIAL 29.9 PROTHROMBIN TIME (07/01/23 22:16)PROTHROMBIN TIME PATIENT 14.0 HINTERNATIONAL NORMAL RATIO 1.26 H MAG (07/01/23 22:16)MAGNESIUM 2.0 COMPREHENSIVE METABOLIC PANEL (07/01/23 22:16)SODIUM 145POTASSIUM 5.0CHLORIDE 113 HCARBON DIOXIDE 24GLUCOSE 80BLOOD UREA NITROGEN 21GLOMERULAR FILTRATION RATE >=60 max estimateCREATININE 0.90TOTAL PROTEIN 6.3ALBUMIN 4.1CALCIUM 8.6 LBILIRUBIN TOTAL 0.7SGOT/AST 470 HSGPT/ALT 175 HALKALINE PHOSPHATASE 205.0 H CBC W/AUTO DIFF (07/01/23 22:16)WHITE BLOOD CELL 5.4RED BLOOD CELL 3.53 LHEMOGLOBIN 10.2L LHEMATOCRIT 33.7L LMEAN CELL VOLUME 95.5MEAN CELL HGB 28.9MEAN CELL HGB CONCENTRATION 30.3 LRED CELL DISTRIBUTION WIDTH 13.3PLATELET COUNT 131L LMEAN PLATELET VOLUME 12.1NEUTROPHIL % 57.9LYMPHOCYTE % 29.0MONOCYTE % 10.5 HEOSINOPHIL % 1.8BASOPHIL % 0.6NEUTROPHIL # 3.15LYMPHOCYTE # 1.58MONOCYTE # 0.57EOSINOPHIL # 0.10BASOPHIL # 0.03 Signed in PatientKeeper by LIZZIE CHAPARRO MD CF1 on 07/02/23 at 19:35 Cosigned by JOSE RAMON DE LA CRUZ MD on 07/06/23 at 18:40 at 1840 at 1840ATTENTION EDITS and/or ADDENDA must be made in Patient Keeper for this note. Edits and ammendments created in [facility] are not visible in Patient Keeper or the legal medical record (HPF). RPT #: [id number] OF REPORTBQFqmjttimbyzz4620-80-43C14:12:00P.PK-NO [id number] for patient kowiACMNUVNYVUXAHQ8527-97-01O42:41:42 [facility] 2023-07-02 08:31:00 [id number] JeZRgnssf5tNk2KlhlGup03gM1BLA rlKgr4jHvvOBHSsq+vBCPouiGW22910-87-91R70:31:00 [facility] ([facility]Hospitalist History PhysicalREPORT#:[id number] REPORT STATUS: SignedREPORT INITIALIZATION DATE:07/02/23 TIME: 830 PATIENT: JERRY NICHOLS UNIT #: [id number]#: [id number] ROOM: [facility] BED: ADOB: 42 AGE: 83 SEX: F ATTEND: Sergio Martinez MDADM AUTHOR: Sergio Martinez MDREPT SERVICE DT/TIME: 07/02/23 0630* ALL edits or amendments must be made on the electronic/computer document * History of Present Illness HPIChief complaint:generalized weaknessPCP:PCP: No Primary or Family Physician HPI:83yo F with multi-comorbid past medical [facility] associated with syncopal episode of the day of ER presenatation. [facility] optim[facility] of care within the setting of symptomatic bradycardia assoaciated with first degree heart block. 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 Additional medical history:History of CVAPast surgical history:Reports: Hysterectomy, Knee procedure. Additional surgical history:Unspecified back and neck procedures, mastectomySmoking status for patients 13 years old or older: Never Smoker Medication/Allergy-Vaccine HxMedications:Home Medications: Medication Dose/Rte/Freq Days Qty Entered Last Max Daily Dose Reviewed Gabapentin (Neurontin) 300 MG PO TID 07/02/23 07/02/23 Strength: 300 MG CAP 0206 0238 Furosemide (Lasix) 40 MG PO DAILY 07/02/23 07/02/23 Strength: 40 MG TAB 0209 0238 Levothyroxine (Synthroid) 75 MCG PO DAILY 07/02/23 07/02/23 Strength: 75 MCG TAB 0210 0238 Memantine (Namenda) 10 MG PO BID 07/02/23 07/02/23 Strength: 10 MG TAB 0214 0238 Metoprolol Tartrate 50 MG PO DAILY 07/02/23 07/02/23 (Lopressor) 0225 0238 Strength: 50 MG TAB Meclizine (Antivert) 25 MG PO TID 07/02/23 07/02/23 Strength: 25 MG TAB 0229 0238 Simvastatin (Zocor) 20 MG PO DAILY 07/02/23 07/02/23 Strength: 20 MG TAB 0233 0238 Rivaroxaban (Xarelto) 20 MG PO DAILY 07/02/23 07/02/23 Strength: 20 MG TAB [address] (Protonix) 40 MG PO DAILY 07/02/23 07/02/23 Strength: 40 MG TAB.DR 0238 0238 Allergies:Coded Allergies:aspirin (From PERCODAN) (UNKOWN 07/01/23)digoxin (UNKOWN 07/01/23)oxycodone (From PERCODAN) (UNKOWN 07/01/23)tetanus and diphtheria toxoids (UNKOWN 07/01/23) Review of Systems Free Text ROS NotesFree Text ROS Notes:Constitutional: No fever, No chills Eye: No recent change in vision, no double vision Ear/Nose/Mouth/Throat: No decreased hearing Respiratory: no shortness of breath Cardiovascular: no chest pain Gastrointestinal: No fecal incontinence Genitourinary: No urinary incontinence Hematology/Lymphatics: No bruising tendency, No bleeding tendency Endocrine: No excessive thirst, no polyuria Immunologic: No recurrent fevers, No recurrent infections Musculoskeletal: No joint pain Integumentary: No rash Neurologic: No headache, No numbness Psychiatric: No anxiety, No depression Objective GeneralVS/I O:Vital Signs: Date Time Temp Pulse Resp B/P B/P Pulse O2 O2 Flow FiO2 Mean Ox Delivery Rate 07/02 0451 36.8 73 18 165/72 103.0 99 07/02 0313 77 17 100 07/02 0303 37.2 87 16 158/89 112.0 07/02 0220 72 14 100 07/02 0120 78 99 07/02 0120 37.0 78 20 149/73 98.8 98 07/01 2154 36.7 75 16 160/69 99 99 Room air 24 hour I O ending at 0700: 07/01 1900 07/02 0700 Intake Total Output Total Balance Patient 66.4 kg Weight Weight Stated/Reported Measurement Method PATIENT WEIGHT: Weight (lb): 146Weight (oz): 6.19Weight (kg): 66.400 Medications:Active Meds + DC'd Last 24 HrsFurosemide (LASIX) 40 MG DAILY PO Levothyroxine Sodium (SYNTHROID,LEVOTHROID) 75 MCG DAILY PO Memantine (NAMENDA) 10 MG BID PO Mupirocin (BACTROBAN 2% 22 GM OINTMENT) 1 APPLIC BID NASAL Midazolam HCl (VERSED) 0 .STK-MED ONE .ROUTE (DC) Sodium Chloride (SODIUM CHLORIDE 0.9%) 250 ML .STK-MED ONE IV (DC) Gentamicin Sulfate/Sodium Chloride (GENTAMICIN 80MG) 100 ML .STK-MED ONE IV (DC) Vancomycin HCl (VANCOCIN) 0 .STK-MED ONE .ROUTE (DC) Fentanyl Citrate (fentaNYL CITRATE/PF) 0 .STK-MED ONE .ROUTE (DC) Lidocaine HCl (XYLOCAINE HCL 1%) 0 .STK-MED ONE .ROUTE (DC) Midazolam HCl (VERSED) 0 .STK-MED ONE .ROUTE (DC) Ropivacaine (NAROPIN 0.5%) 0 .STK-MED ONE .ROUTE (DC) Gabapentin (NEURONTIN) 300 MG TID PO Meclizine HCl (ANTIVERT) 25 MG TID PO Pantoprazole (PROTONIX) 40 MG DAILY PO Rivaroxaban (XARELTO) 20 MG DAILY PO Simvastatin (ZOCOR) 20 MG DAILY PO Physical ExamGeneral appearance: alert, awake, no acute distress, no respiratory distressHead/Eyes: atraumatic, EOMI, normocephalic, PERRLANeck: full range of motion, non-tender, no JVD, no masses or swellingCardiovascular: bradycardic, no gallop, no murmur, no rubRespiratory: aerating well, clear to auscultation, symmetric expansion, no distressAbdomen: non-tender, normal bowel sounds, soft, no distention, no mass/organomegalyExtremities: moves all, no clubbing, no cyanosis, no edemaNeuro/MACHINE HOOP MAKER HELPER: alert, oriented X 3, CNII-XII intact, normal speechSkin: dry, intact, normal temperature, no rashPsychiatry: normal mood, not homicidal, not suicidal, no hallucinations ResultsFindings/Data:Laboratory Tests 07/01 07/01 07/01 2216 2216 2217Chemistry Sodium (136 - 145 mmol/L) 145 Potassium (3.5 - 5.1 mmol/L) 5.0 Chloride (98 - 107 mmol/l) 113 H Carbon Dioxide (20 - 31 mmol/L) 24 BUN (9 - 23 mg/dL) 21 Creatinine (0.55 - 1.02 mg/dL) 0.90 Glomerular Filtr Rate (>60 mL/min) >=60 max estimate Glucose (74 - 106 mg/dL) 80 Calcium (8.7 - 10.4 mg/dL) 8.6 L Magnesium (1.6 - 2.6 mg/dL) 2.0 Total Bilirubin (0.3 - 1.2 mg/dL) 0.7 AST (<34 U/L) 470 H ALT (10 - 49 U/L) 175 H Total Alk Phosphatase (46 - 116 U/L) 205.0 H Troponin I High Sens (27.36 - 66.23 pg/mL) 16.3 L B-Natriuretic Peptide (<100 pg/mL) 35 Total Protein (5.7 - 8.2 g/dL) 6.3 Albumin (3.2 - 4.8 g/dL) 4.1 Laboratory Tests 07/016 Coagulation PT (10.3 - 12.9 SECONDS) 14.0 H INR (0.9 - 1.11) 1.26 H PTT ([place]) (23.8 - 34.8 secs) 29.9 Laboratory Tests 07/016 Hematology WBC (4.8 - 10.8 x10 3/uL) 5.4 RBC (4.20 - 5.40 x10 6/uL) 3.53 L Hgb (12.0 - 16.0 g/dL) 10.2 L Hct (37.0 - 47.0 %) 33.7 L MCV (81.0 - 99.0 fL) 95.5 MCH (27 - 31 pg) 28.9 MCHC (33 - 36.5 G/DL) 30.3 L RDW (12.9 - 16.9 %) 13.3 Plt Count (150 - 440 x10 3/uL) 131 L MPV (8.9 - 12.4 fL) 12.1 Neut % (Auto) (42.2 - 75.2 %) 57.9 Lymph % (Auto) (20.5 - 51.1 %) 29.0 Williamson % (Auto) (1.7 - 9.3 %) 10.5 H Eos % (Auto) (0.0 - 7.0 %) 1.8 Baso % (Auto) (0 - 2.5 %) 0.6 Neut # (Auto) (1.80 - 7.70 x10 3/uL) 3.15 Lymph # (Auto) (1.00 - 4.80 x10 3/uL) 1.58 Williamson # (Auto) (0.00 - 0.80 x10 3/uL) 0.57 Eos # (Auto) (0.00 - 0.45 x10 3/uL) 0.10 Baso # (Auto) (0.0 - 0.20 x10 3/uL) 0.03 Radiology data:Recent Impressions:RADIOLOGY - XR CHEST 1 V 07/01 2149 Report Impression - Status: SIGNED Entered: 07/01/20232230 IMPRESSION:No acute cardiopulmonary abnormality.Impression By: Simin - LINDSAY POWELL M.D. Diagnosis, Assessment PlanPlan discussed with: patient, nurse Free Text DxA P NotesFree Text DxA P Notes:83yo F admitted for management of symptomatic bradycardia. #Bradycardia: 2/2 1st degree heart block w/s underlying Afib-resume xarelto, f/u cardiology consult recs #HTN: stable-hold metoprolol, contineu PRN hydralazine #HLD: ASCVD > 7.5%-continue statin #Hypothyroid: chronic-continue supplementation #GERD: chronic-continue PPI #Dementia: w/o/ behavioral disturbance-continue namenda #Dispo: pending clinical recovery-will continue to follow at 2122 RPT #:[id number] OF REPORTHPHistory and physical gicwxbguewn6252-02-26W11:31:00P.[id number] AVAvailable for patient [id number]:22:21 [facility] 2023-07-01 22:05:00 [id number]/[id number]+[id number]:05:37701 8-[address] [address] NAME: JERRY NICHOLS ADMIT DATE: 07/01/23ACCOUNT NO: [id number] ROOM NO: [facility] AGE: 83 REPORT TYPE: eELECTROCARDIOGRAM SEX: F ADMITTING PHYSICIAN: Olwilliams Treviño MDATTENDING PHYSICIAN: Sergio Treviño MD Order:[id number] Reason : Test Date/Time Stamp:ThuJul 01 2023 22:05:22Blood Pressure : / mmHGVent. Rate : 070 BPM Atrial Rate : 070 BPM P-R Int : 238 ms QRS Dur : 070 ms QT Int : 370 ms P-R-T Axes : 019 049 043 degrees QTc Int : 399 ms Sinus rhythm with 1st degree AV blockOtherwise normal ECGNo previous ECGs availableConfirmed by ROYAL MACARIO ([id number]) on 07/05/2023 7:58:38 AM Referred By: Ralph Alfonso Confirmed by:ROYAL MACARIO at 0758 PATIENT NAME: JERRY NICHOLS .[id number] AVAvailable for patient [id number]:59:03 [facility] 2023-07-01 21:48:00 [id number] [id number]3E97:48:00 [facility] ([facility])EMERGENCY PROVIDER REPORTREPORT#:[id number] REPORT STATUS: SignedDATE:07/01/23 TIME: 2147 PATIENT: JERRY NICHOLS UNIT #: [id number]#: [id number] ROOM: [facility] BED: AAGE: 83 SEX: F PCP PHYS: No Primary or Family PhysicianSERVICE AUTHOR: Ralph Alfonso MD * ALL edits or amendments must be made on the electronic/computer document * See AddendumHPI-Syncope Free Text HPI NotesFree Text HPI NotesPMH of CHF, HLD, COPD, HTN, prior CVA, history of prior cardiac arrest?Transfer from [facility]. Accepted by Dr. Macario, cardiology.Concern for symptomatic bradycardia syncopal episode today. Heart rate was in the 30s per report. Patient was transcutaneously paced on the way to outside ED.On arrival she was noted to have restored a heart rate of 60-70 bpm and ECG showed 1st degree heart block. CXR and labs were reportedly unremarkable and sheremained stable. Is being transferred here for higher level of care for evaluation of pacemaker placement.Currently denies chest pain in the ED. Notes minimal shortness of breath.Of note, she states she was recently hospitalized for Coviv-19/Influenza.Is on Xarelto per med rec. GeneralInitial Greet Date/Time 07/01/232143Transferred From [facility] PresentationChief Complaint Became unresponsive Review of Systems ROS StatementsAll systems rev neg except as marked. Past Medical History - AdultStated Complaint 3RD DEGREE HBAllergiesCoded Allergies:aspirin (From PERCODAN) (UNKOWN 07/01/23)digoxin (UNKOWN 07/01/23)oxycodone (From PERCODAN) (UNKOWN 07/01/23)tetanus and diphtheria toxoids (UNKOWN 07/01/23) Past Medical History:Reports: Congestive heart failure, COPD, Hypertension, Dyslipidemia. Additional Medical HistoryHistory of CVAPast Surgical History:Reports: Hysterectomy, Knee procedure. Additional Surgical HistoryUnspecified back and neck procedures, mastectomyPt reports no Fam Hx pert to chief complaint.Smoking status for patients 13 years old or older: Unknown,if ever smoked Physical Exam Vital SignsVital SignsFirst Documented: Result Date Time Pulse Ox 99 07/01 2153 B/P 160/69 07/01 2153 B/P Mean 99 07/01 2153 O2 Delivery Room air 07/01 2153 Temp 36.7 07/01 2153 Pulse 75 07/01 2153 Resp 16 07/01 2153 Last Documented: Result Date Time Pulse Ox 99 07/01 2153 B/P 160/69 07/01 2153 B/P Mean 99 07/01 2153 O2 Delivery Room air 07/01 2153 Temp 36.7 07/01 2153 Pulse 75 07/01 2153 Resp 16 07/01 2153 Review of Vital Signs Reviewed Focused PEGeneral/Const General/Const Awake, Alert, No acute distress, Cooperative, Not toxic appearingEars/Nose/Throat Ears/Nose/Throat Airway patent, Mucous membranes moistMS Neck Neck Supple, No JVDResp/Chest Respiratory/Chest No respiratory distress, No retractionsCardiovascular Cardiovascular Heart rate NL, Regular rhythm, Heart sounds NL, No murmurs, Peripheral circulation NLAbdomen/GI Abdomen/GI No distentionMS Lower Extrem Lower Ext/Pelvis/MS No edemaSkin Skin Color NL, DryNeurologic Neurologic Oriented X3, Speech NL, No motor deficits, No sensory deficits Interpretation Diagnostics Lab Results InterpretationResultsLaboratory Tests 07/01/232215:[Embedded Image Not Available]Laboratory Tests: 07/016 2217Chemistry Sodium (136 - 145 mmol/L) 145 Potassium (3.5 - 5.1 mmol/L) 5.0 Chloride (98 - 107 mmol/l) 113 H Carbon Dioxide (20 - 31 mmol/L) 24 BUN (9 - 23 mg/dL) 21 Creatinine (0.55 - 1.02 mg/dL) 0.90 Glomerular Filtr Rate (>60 mL/min) >=60 max estimate Glucose (74 - 106 mg/dL) 80 Calcium (8.7 - 10.4 mg/dL) 8.6 L Magnesium (1.6 - 2.6 mg/dL) 2.0 Total Bilirubin (0.3 - 1.2 mg/dL) 0.7 AST (<34 U/L) 470 H ALT (10 - 49 U/L) 175 H Total Alk Phosphatase (46 - 116 U/L) 205.0 H Troponin I High Sens (27.36 - 66.23 pg/mL) 16.3 L B-Natriuretic Peptide (<100 pg/mL) 35 Total Protein (5.7 - 8.2 g/dL) 6.3 Albumin (3.2 - 4.8 g/dL) 4.1Coagulation PT (10.3 - 12.9 SECONDS) 14.0 H INR (0.9 - 1.11) 1.26 H PTT (Adelfo) (23.8 - 34.8 secs) 29.9Hematology WBC (4.8 - 10.8 x10 3/uL) 5.4 RBC (4.20 - 5.40 x10 6/uL) 3.53 L Hgb (12.0 - 16.0 g/dL) 10.2 L Hct (37.0 - 47.0 %) 33.7 L MCV (81.0 - 99.0 fL) 95.5 MCH (27 - 31 pg) 28.9 MCHC (33 - 36.5 G/DL) 30.3 L RDW (12.9 - 16.9 %) 13.3 Plt Count (150 - 440 x10 3/uL) 131 L MPV (8.9 - 12.4 fL) 12.1 Neut % (Auto) (42.2 - 75.2 %) 57.9 Lymph % (Auto) (20.5 - 51.1 %) 29.0 Williamson % (Auto) (1.7 - 9.3 %) 10.5 H Eos % (Auto) (0.0 - 7.0 %) 1.8 Baso % (Auto) (0 - 2.5 %) 0.6 Neut # (Auto) (1.80 - 7.70 x10 3/uL) 3.15 Lymph # (Auto) (1.00 - 4.80 x10 3/uL) 1.58 Williamson # (Auto) (0.00 - 0.80 x10 3/uL) 0.57 Eos # (Auto) (0.00 - 0.45 x10 3/uL) 0.10 Baso # (Auto) (0.0 - 0.20 x10 3/uL) 0.03 Recent Impressions:RADIOLOGY - XR CHEST 1 V 07/01 2149 Report Impression - Status: SIGNED Entered: 07/01/20232230 IMPRESSION:No acute cardiopulmonary abnormality.Impression By: Simin - LINDSAY POWELL M.D. Lab Imaging StatementLaboratory radiographic studies reviewed and considered in the medical decision-making. Point of Care TestingPulse Oximetry Pulse Ox % 99 On: Room air Interpretation Interpreted by me, Pulse oximetry normal Time 2153 ECG #1 InterpretationText/Dict NoteRate 70 bpm, sinus rhythm with 2st deg heart block (DEYSI 238 ms), normal axis, normal QRS duration, normal ST segments, noral t-waves, normal QT. No STEMI.ECG Documented in MUSE YesDate 07/01/23Time 2204Interpreted by and reviewed by me, Independently interpreted, ED physician Re-Evaluation MDM Free Text MDM NotesFree Text MDM NotesPatient well appearing and in no distress at this time in the ED. Vitals stable,normal heart rate 60-70 bpm in the ED. Blood pressure 160/69 on arrival. ECG with 1st deg heart block similar to outside study. CXR normal. Trop I level wnl.Remainder of labs unremarkable with exception of nonspecific elevation in LFTs. Bilirubin normal. Patient with no abdominal pain. Will monitor.Will place in obs. Dr. Macario, cardiology, had accepted patient and will evaluate for pacemaker.Case d/w Dr. Mcqueen, accepted patient for admission. ConsultationConsultation Referral/Consult Name Royal Macario MD Spectrographic Analyst Called Cardiology Free Text Consult NotesWas on phone call for physician report from transferring hospital. In agreement with plan for transfer and admission here with evaluation for pacemaker. Patient Discharge Departure Vital Signs/ConditionVital SignsFirst Documented: Result Date Time Pulse Ox 99 07/01 2153 B/P 160/69 07/01 2153 B/P Mean 99 07/01 2153 O2 Delivery Room air 07/01 2153 Temp 36.7 07/01 2153 Pulse 75 07/01 2153 Resp 16 07/01 2153 Last Documented: Result Date Time Pulse Ox 99 07/01 2154 B/P 160/69 07/01 2153 B/P Mean 99 07/01 2153 O2 Delivery Room air 07/01 2153 Temp 36.7 07/01 2153 Pulse 75 07/01 2153 Resp 16 07/01 2153 All vital signs available at the time of this entry have been reviewed. Clinical ImpressionClinical ImpressionPrimary Impression: SyncopeSecondary Impressions: 1st degree AV block, Bradycardia, Elevated LFTs Disposition DecisionHospitalize Hosp Physician Name Sergio Martinez MD [facility] Physician Hospitalist Request Time 2251 Request Date 07/01/23 )( Accepts Hospitalization Yes )( Reason for Hospitalizationneed for evaluation for pacemaker )( Accepted Time 2251 )( Accepted Date 07/01/23 Discharge/Care PlanCounseled Regarding Diagnosis, Lab results, Imaging studies, Need for admission at 0138 Addendum 1: 07/02/23 0145 by Ralph Alfonso MD Patient AddendumAddendumCT head was not ordered. Syncopal event suspected to be cardiac in nature given her bradycardia. at 0145RPT #:[id number] OF REPORTEDEmekindred healthcare department jimbag8173-17-22P08:48:00P.[id number] ilable for patient aeyfRPMHUKFNBZRHUK7175-72-81Q27:38:22 [facility]
[2023-08-08 17:36] LABS: Absolute Basophils 0.1 K/uL (0-0.5); Absolute Eosinophils 0.2 K/uL (0-0.5); Absolute Lymphocytes (CBC) 1.8 K/uL (0.7-4.9); Absolute Monocytes 0.6 K/uL (0.1-1.3); Absolute Neutrophil 7.1 K/uL (1.8-8.0); Eosinophils % 1.7 % (0-4.4); Hematocrit 31.5 % (36.0-45.0); Hemoglobin 10.4 g/dL (12.0-15.0); Lymphocytes % 18.6 % (15.3-44.8); MCH 29.8 pg (27.0-35.0); MCHC 33.1 g/dL (32.0-36.0); MCV 89.9 fL (80-100); MPV 8.8 fL (7.6-11.3); Monocytes % 5.7 % (3.3-12.3); Platelets 196 thou/uL (152-406); Red Cell Distribution Width 13.5 % (12.1-15.2)
--- NOTE | 2023-08-08 17:37 | RAD REPORT ---
EXAM DESCRIPTION: RAD - Chest Single View - 08/08/2023 5:28 pm CLINICAL HISTORY: CHEST PAIN COMPARISON: Chest Single View dated 07/01/2023; Chest Single View dated 06/15/2023; CHEST SINGLE VIEW dated 12/16/2014; CHEST SINGLE VIEW dated 12/15/2014 FINDINGS: Lines: None. Lungs: No evidence of edema or pneumonia. Pleural: No significant pleural effusions or pneumothorax. Cardiac: The heart size is within normal limits. Mediastinum: Within normal limits. Bones: No acute fractures. ACDF in the cervical spine . Other: Pacemaker. Spinal stimulator . IMPRESSION: No acute cardiopulmonary disease.
[2023-08-08 17:39] LABS: PT Prothrombin Time 14.1 SECONDS (9.5-12.5); Protime INR 1.29
[2023-08-08 17:56] LABS: Albumin/Globulin Ratio 0.9 (1.1-1.8); Anion Gap 9.3 mEq/L (5.0-15.0); Bilirubin Direct 0.7 mg/dL (0-0.2); Bilirubin Indirect, Calculated 0.1 mg/dL (0.2-0.8); Bilirubin Total 0.8 mg/dL (0.2-1.0); Globulin 3.4 g/dL (2.3-3.5); Magnesium 2.1 mg/dL (1.6-2.4); Potassium 4.3 mEq/L (3.5-5.1); Protein, Total 6.4 g/dL (6.4-8.2); Troponin High Sensitivity 19.4 pg/mL (<58.9)
--- NOTE | 2023-08-08 19:06 | RAD REPORT ---
EXAM DESCRIPTION: CTAngio Aorta For Dissection - 08/08/2023 6:42 pm CLINICAL HISTORY: Abd pain;Dissection;Epigastric pain COMPARISON: Chest Abd Pelvis Wo Con dated 06/15/2023 TECHNIQUE: CTA of the chest, abdomen, and pelvis was performed. 3D maximum intensity pixel (MIP) rec onstructions were created All CT scans are performed using dose optimization technique as appropriate and may include automated exposure control or mA/KV adjustment according to patient size. FINDINGS: Thorax: Chest Wall: No abnormal mass breast prostheses. Left upper chest wall pacemaker. Lungs: No acute abnormality. Pleura: No effusions or pneumothorax. Naomi/Mediastinum: No lymphadenopathy. Aorta/Pulmonary Arteries: Unremarkable Heart: Normal size. Abdomen/Pelvis: Liver: Severe intrahepatic biliary duct dilatation. No suspicious liver lesions. Biliary: Severe extrahepatic biliary duct dilatation. Multiple common bile duct and common hepatic du ct stones are again identified. Cholecystectomy. Stomach: No significant focal abnormality. Duodenum: No significant focal abnormality. Pancreas: No significant abnormality. Spleen: No significant abnormality. Adrenal: No suspicious lesions. Kidney/ureter: No hydronephrosis. No renal calculi. Too small to characterize and/or benign appearing renal lesions are noted. Retroperitoneum: No retroperitoneal adenopathy. Vascular: No aneurysm. Bowel: No significant focal abnormality. Peritoneum: No ascites or free air. Bladder: Grossly unremarkable. Reproductive: Hysterectomy. Bones: No acute fracture. Spinal stimulator . Grade 2 anterolisthesis of L5 on S1. Multilevel degener ative changes are present in the spine. Other: n/a IMPRESSION: 1. No aortic aneurysm, aortic dissection, or pulmonary embolus identified. 2. Similar severe intra- and extrahepatic biliary duct dilatation with numerous common bile duct and common hepatic duct stones noted.
--- NOTE | 2023-08-08 19:40 | ER ---
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 Coronavirus screen: Vaccine status: Patient reports receiving the 2nd dose of the covid vaccine. Ebola Screen: No symptoms or risks identified at this time. Initial Sepsis Screen: Does the patient meet any 2 criteria? No. Patient's initial sepsis screen is negative. Does the patient have a suspected source of infection? No. Patient's initial sepsis screen is negative. Risk Assessment: Do you want to hurt yourself or someone else? Patient reports no desire to harm self or others. Onset of symptoms was August 08, 2023. 16:49 Method Of Arrival: EMS: [facility] Triage Assessment: 16:30 General: Appears in no apparent distress. uncomfortable, Behavior is calm, cooperative, ph appropriate for age, Denies fever. Pain: Complains of pain in chest Pain radiates to back. Neuro: Level of Consciousness is awake, alert, obeys commands, Oriented to person, place, time, situation. Cardiovascular: Capillary refill < 3 seconds in bilateral fingers Patient's skin is warm and dry. Cardiovascular: Reports chest pain, lightheadedness, nausea. Respiratory: Airway is patent Respiratory effort is even, unlabored, Respiratory pattern is regular, symmetrical. GI: Reports nausea, Patient currently denies vomiting. Derm: Skin is pink, warm \\T\\ dry. Historical: - Allergies: 16:54 Digoxin; ph 16:54 Percodan; ph 16:54 Tape; ph 16:54 Tetanus Vaccines \\T\\ Toxoid; ph - PMHx: 16:54 cardiac arrest; Cerebrovascular accident; CHF; COPD; High Cholesterol; Hypertension; ph Hypertension; Thyroid problem; - PSHx: 16:54 back; bilateral knee; mastectomy; neck; Total abdominal hysterectomy; ph - Immunization history:: Adult Immunizations unknown. - Social history:: Smoking status: unknown. - Family history:: not pertinent. Screenin:46 [facility] ED Fall Risk Assessment (Adult) History of falling in the last 3 months, ph including since admission No falls in past 3 months (0 pts) Confusion or Disorientation No (0 pts) Intoxicated or Sedated No (0 pts) Impaired Gait No (0 pts) Mobility Assist Device Used Yes (1 pt) Altered Elimination Yes (1 pt) Score/Fall Risk Level 0 - 2 = Low Risk Oriented to surroundings, Maintained a safe environment, Educated pt \\T\\ family on fall prevention, incl call for assistance when getting out of bed, Hourly rounding (assess needs \\T\\ fall precautionary measures) done. Abuse screen: Denies threats or abuse. Denies injuries from another. Nutritional screening: No deficits noted. Tuberculosis screening: No symptoms or risk factors identified. Assessment: 17:45 General: Appears in no apparent distress. Pain: Pain began 2 hours ago. Neuro: Level of ph Consciousness is awake, alert, obeys commands, Oriented to person, place, time, situation. Cardiovascular: Reports chest pain, nausea, Rhythm is regular Chest pain quality is crushing, began 1 hour prior to arrival. 19:20 General: Appears uncomfortable, Behavior is calm, cooperative. Pain: Complains of pain ha1 in left upper quadrant and epigastric area and abdomen and back Pain does not radiate. Pain currently is 7 out of 10 on a pain scale. Quality of pain is described as crampy. Neuro: Level of Consciousness is awake, alert, obeys commands, Oriented to person, place, time, situation. Cardiovascular: Capillary refill < 3 seconds Patient's skin is warm and dry. Respiratory: Airway is patent Respiratory effort is even, unlabored, Respiratory pattern is regular, symmetrical. 20:20 Reassessment: Patient and/or family updated on plan of care and expected duration. Pain ha1 level reassessed. Patient is alert, oriented x 3, equal unlabored respirations, skin warm/dry/pink. 20:30 Reassessment: ATTEMPTED TO GIVE REPORT. ha1 20:50 Reassessment: ATTEMPTED TO GIVE REPORT. ha1 21:15 Reassessment: Patient and/or family updated on plan of care and expected duration. Pain ha1 level reassessed. Patient is alert, oriented x 3, equal unlabored respirations, skin warm/dry/pink. Vital Signs: 16:49 BP 112 / 56; Pulse 89; Resp 16; Temp 97.3; Pulse Ox 96% on R/A; Weight 64.41 kg; Height ph 5 ft. 0 in. ; 17:49 BP 99 / 60; Pulse 87; Resp 18; Pulse Ox 99% on R/A; ph 19:07 BP 130 / 72; Pulse 79; Resp 18; Pulse Ox 98% on R/A; ph 20:15 BP 135 / 52; Pulse 87; Resp 17 S; Pulse Ox 98% on R/A; ha1 21:15 BP 133 / 54; Pulse 82; Resp 17 S; Pulse Ox 98% on R/A; ha1 16:49 Body Mass Index 27.73 (64.41 kg, 152.4 cm) ph Vitals: 17:49 Cardiac Rhythm Assessment Sinus rhythm. ph ED Course: 16:26 Patient arrived in ED. ph 16:26 Triage completed. ph 16:49 Luisa Monsalve, RN is Primary Nurse. ph 16:53 Eyal Moody MD is Attending Physician. hilary 16:55 Arm band placed on Patient placed in an exam room, on a stretcher, on site monitor, ph on pulse oximetry. 16:56 EKG done, by ED staff, reviewed by Eyal Moody MD. Maintain EMS IV. Dressing intact. ph Good blood return noted. Site clean \\T\\ dry. Gauge \\T\\ site: 22 RFA. 17:30 XRAY Chest (1 view) In Process Unspecified. EDMS 17:45 Patient has correct armband on for positive identification. Call light in reach. Side ph rails up X 1. Client placed on continuous cardiac and pulse oximetry monitoring. NIBP monitoring applied. media monitor on. Door closed. Noise minimized. Warm blanket given. 18:[address] via stretcher. ph 18:44 CT Aorta for Dissection In Process Unspecified. EDMS 19:38 US Abdomen Limited In Process Unspecified. EDMS 20:33 Urinalysis w/ reflexes Sent. km8 20:33 Urine collected: clean catch specimen, dayton colored. km8 20:51 Provided Education on: NEED FOR TRANSFER. ha1 20:51 No provider procedures requiring assistance completed. Patient maintains SpO2 ha1 saturation greater than 95% on room air. 21:30 Patient transferred, IV remains in place. ha1 Administered Medications: 16:45 Drug: Ondansetron IVP 4 mg IVP once; over 2 minutes Route: IVP; Site: right forearm; ph 17:42 Not Given (given by EMS): aspirinchewable tablet 81 mg PO once ph 18:28 Drug: fentaNYL (PF) IVP 25 mcg IVP once Route: IVP; Site: right forearm; ph 19:27 Drug: NS 0.9% IV 1000 ml IV at 125 ml/hr continuous Route: IV; Rate: 125 ml/hr; Site: ha1 right antecubital; 19:27 Drug: Piperacillin-Tazobactam IVPB 3.375 grams IVPB once over 60 mins; (mix in NS 100 ha1 mL) Route: IVPB; Infused Over: 60 mins; Site: right antecubital; 21:30 Follow up: Response: No adverse reaction; IV Status: Completed infusion; IV Intake: ha1 100ml 19:28 Drug: NS 0.9% IV 500 ml IV at bolus once Route: IV; Rate: bolus; Site: right ha1 antecubital; 21:32 Follow up: IV Status: Completed infusion; IV Intake: 500ml ha1 20:38 Drug: Famotidine IVP 20 mg IVP once; dilute with 10 mL 0.9% NaCl; give over 2 minutes ha1 Route: IVP; Site: right antecubital; 21:20 Follow up: Response: No adverse reaction; Marked relief of symptoms ha1 21:13 Drug: fentaNYL (PF) IVP 25 mcg IVP once Route: IVP; Site: right antecubital; ha1 Medication: 17:47 VIS not applicable for this client. ph Intake: 21:30 IV: 100ml; Total: 100ml. ha1 21:32 IV: 500ml; Total: 600ml. ha1 Outcome: 19:40 ER care complete, transfer ordered by MD. richard 21:29 Transferred by ground EMS to [facility], Transfer form completed. ha1 X-rays sent w/ patient. 21:29 Condition: stable 21:29 Discharge instructions given to patient, Instructed on the need for transfer, Demonstrated understanding of instructions, :32 Patient left the ED. ha1 Signatures: Dispatcher [employer] Eyal Cook MD MD cha Hall, Patricia, RN RN Kiki Tarango RN RN ha1 Le Carrasco RN RN km8 Corrections: (The following items were deleted from the chart) : 21:20 IV Status: Completed infusion; IV Intake: 500ml ha1 ha1
--- NOTE | 2023-08-08 19:40 | EDPHYS ---
Physician Documentation [facility] Name: Ana Paula Nichols Age: 83 yrs Sex: Female : 1940 Arrival Date: 08/08/2023 Time: 16:18 Bed 13 Private MD: ED Physician Eyal Moody HPI: 08/07 17:48 This 83 yrs old Female presents to ER via EMS with complaints of Chest Pain. hilary 17:48 The patient or guardian reports chest pain that is located primarily in the substernal hilary area, anterior chest wall. Onset: today. The pain radiates to chest and abdomen. Associated signs and symptoms: Pertinent positives: abdominal pain, shortness of breath. The chest pain is described as a pressure. Modifying factors: The symptoms are alleviated by nothing. the symptoms are aggravated by nothing. Severity of pain: At its worst the pain was moderate in the emergency department the pain is unchanged. The patient has experienced similar episodes in the past, several times. Historical: - Allergies: 16:54 Digoxin; ph 16:54 Percodan; ph 16:54 Tape; ph 16:54 Tetanus Vaccines \T\ Toxoid; ph - PMHx: 16:54 cardiac arrest; Cerebrovascular accident; CHF; COPD; High Cholesterol; Hypertension; ph Hypertension; Thyroid problem; - PSHx: 16:54 back; bilateral knee; mastectomy; neck; Total abdominal hysterectomy; ph - Immunization history:: Adult Immunizations unknown. - Social history:: Smoking status: unknown. - Family history:: not pertinent. ROS: 17:48 Constitutional: Negative for fever, chills, and weight loss, Eyes: Negative for injury, hilary pain, redness, and discharge, ENT: Negative for injury, pain, and discharge, Neck: Negative for injury, pain, and swelling, Back: Negative for injury and pain, : Negative for injury, bleeding, discharge, and swelling, MS/Extremity: Negative for injury and deformity, Skin: Negative for injury, rash, and discoloration, Neuro: Negative for headache, weakness, numbness, tingling, and seizure, Psych: Negative for depression, anxiety, suicide ideation, homicidal ideation, and hallucinations, Allergy/Immunology: Negative for hives, rash, and allergies, Endocrine: Negative for neck swelling, polydipsia, polyuria, polyphagia, and marked weight changes, Hematologic/Lymphatic: Negative for swollen nodes, abnormal bleeding, and unusual bruising, 17:48 Cardiovascular: Positive for chest pain, of the chest, 17:48 Abdomen/GI: Positive for abdominal pain, of the epigastric area, right upper quadrant and left upper quadrant, Exam: 17:48 Constitutional: This is a well developed, well nourished patient who is awake, alert, hilary and in no acute distress. Head/Face: Normocephalic, atraumatic. Eyes: Pupils equal round and reactive to light, extra-ocular motions intact. Lids and lashes normal. Conjunctiva and sclera are non-icteric and not injected. Cornea within normal limits. Periorbital areas with no swelling, redness, or edema. ENT: Nares patent. No nasal discharge, no septal abnormalities noted. Tympanic membranes are normal and external auditory canals are clear. Oropharynx with no redness, swelling, or masses, exudates, or evidence of obstruction, uvula midline. Mucous membranes moist. Neck: Trachea midline, no thyromegaly or masses palpated, and no cervical lymphadenopathy. Supple, full range of motion without nuchal rigidity, or vertebral point tenderness. No Meningismus. Chest/axilla: Normal chest wall appearance and motion. Nontender with no deformity. No lesions are appreciated. Cardiovascular: Regular rate and rhythm with a normal S1 and S2. No gallops, murmurs, or rubs. Normal PMI, no JVD. No pulse deficits. Respiratory: Lungs have equal breath sounds bilaterally, clear to auscultation and percussion. No rales, rhonchi or wheezes noted. No increased work of breathing, no retractions or nasal flaring. Back: No spinal tenderness. No costovertebral tenderness. Full range of motion. Skin: Warm, dry with normal turgor. Normal color with no rashes, no lesions, and no evidence of cellulitis. MS/ Extremity: Pulses equal, no cyanosis. Neurovascular intact. Full, normal range of motion. Neuro: Awake and alert, GCS 15, oriented to person, place, time, and situation. Cranial nerves II-XII grossly intact. Motor strength 5/5 in all extremities. Sensory grossly intact. Cerebellar exam normal. Normal gait. Psych: Awake, alert, with orientation to person, place and time. Behavior, mood, and affect are within normal limits. 17:48 ECG was reviewed by the Attending Physician. 17:48 Abdomen/GI: Inspection: abdomen appears normal, Bowel sounds: normal, Palpation: mild abdominal tenderness, moderate abdominal tenderness, in the epigastric area, right upper quadrant and left upper quadrant, Liver: no appreciated palpable abnormalities, Hernia: not appreciated, 17:57 Musculoskeletal/extremity: ROM: no acute changes, Circulation is intact in all hilary extremities. Sensation intact. Compartment Syndrome exam of affected extremity: is normal. DVT Exam: No signs of deep vein thrombosis. no pain, no swelling, no tenderness, negative Homans' sign noted on exam, no appreciated bluish discoloration, no erythema, no increased warmth, Vital Signs: 16:49 BP 112 / 56; Pulse 89; Resp 16; Temp 97.3; Pulse Ox 96% on R/A; Weight 64.41 kg; Height ph 5 ft. 0 in. ; 17:49 BP 99 / 60; Pulse 87; Resp 18; Pulse Ox 99% on R/A; ph 19:07 BP 130 / 72; Pulse 79; Resp 18; Pulse Ox 98% on R/A; ph 20:15 BP 135 / 52; Pulse 87; Resp 17 S; Pulse Ox 98% on R/A; ha1 21:15 BP 133 / 54; Pulse 82; Resp 17 S; Pulse Ox 98% on R/A; ha1 16:49 Body Mass Index 27.73 (64.41 kg, 152.4 cm) ph MDM: 16:53 Patient medically screened. hilary 17:52 Differential diagnosis: abnormal EKG, acute myocardial infarction, acute pericarditis, hilary anxiety, chest wall pain, costochondritis, esophagitis, gastritis, pancreatitis. HEART Score: History: Slightly Suspicious (0), ECG: Non specific repolarization disturbance / LBTB / PM (1), Age: > or = 65 years (2), Risk Factors: > or = 3 Risk factors for atherosclerotic disease (2), [Hypercholesterolemia] [Hypertension] [Active Smoker] [+ Family HX] [Obesity] Troponin: < or = 1 x Normal Limit (0). The patient was not given aspirin in the Emergency Department. Not indicated due to patient's past medical history. VENUS Risk Score: 1 - patient's age is greater or equal to 65 years, 1 - Three or more CAD risk factors, 1- Known CAD, 1 - Recent [<24hrs] Severe Angina, TOTAL SCORE = 4. Data reviewed: vital signs, nurses notes, lab test result(s), EKG, radiologic studies, CT scan, plain films. Consideration of Admission/Observation Patient was admitted/placed on observation. Escalation of care including admission/observation considered. I considered the following discharge prescriptions or medication management in the emergency department Medications were administered in the Emergency Department. See MAR. Independent interpretation of the following test(s) in the Emergency Department EKG: See my EKG interpretation above. Test considered but Not performed:. Test considered but Not performed: MRI: NO MRCP. Care significantly affected by the following chronic conditions: Hypertension, Congestive Heart Failure, Chronic Obstructive Pulmonary Disease, Obesity, Cancer, CAD, HYPOTHYROID. 08/07 16:55 Order name: Basic Metabolic Panel; Complete Time: 18:13 08/07 16:55 Order name: CBC with Diff; Complete Time: 17:46 08/07 16:55 Order name: LFT's; Complete Time: 18:13 08/07 16:55 Order name: Magnesium; Complete Time: 18:13 08/07 16:55 Order name: NT PRO-BNP; Complete Time: 18:13 08/07 16:55 Order name: PT-INR; Complete Time: 17:46 08/07 16:55 Order name: Troponin HS; Complete Time: 18:13 08/07 16:55 Order name: Lipase; Complete Time: 18:13 08/07 16:55 Order name: Urinalysis w/ reflexes 08/07 16:55 Order name: XRAY Chest (1 view); Complete Time: 17:46 08/07 17:44 Order name: CT Aorta for Dissection; Complete Time: 19:15 08/07 18:14 Order name: US Abdomen Limited; Complete Time: 19:57 08/07 16:55 Order name: EKG; Complete Time: 16:55 08/07 16:55 Order name: Cardiac monitoring; Complete Time: 17:37 08/07 16:55 Order name: EKG - Nurse/Tech; Complete Time: 17:37 08/07 16:55 Order name: IV Saline Lock; Complete Time: 17:37 08/07 16:55 Order name: Labs collected and sent; Complete Time: 17:37 23 16:55 Order name: O2 Per Protocol; Complete Time: 17:37 [facility] 08/07 16:55 Order name: O2 Sat Monitoring; Complete Time: 17:37 [facility] EC:48 Rate is 85 beats/min. Rhythm is regular. QRS [place] is Normal. DE interval is normal. QRS hilary interval is normal. QT interval is normal. No Q waves. T waves are Normal. No ST changes noted. Clinical impression: NSR w/ Non-specific ST/T Changes, 1st degree heart block, and No evidence of ischemia. Interpreted by me. Reviewed by me. Administered Medications: 16:45 Drug: Ondansetron IVP 4 mg IVP once; over 2 minutes Route: IVP; Site: right forearm; ph 17:42 Not Given (given by EMS): aspirinchewable tablet 81 mg PO once ph 18:28 Drug: fentaNYL (PF) IVP 25 mcg IVP once Route: IVP; Site: right forearm; ph 19:27 Drug: NS 0.9% IV 1000 ml IV at 125 ml/hr continuous Route: IV; Rate: 125 ml/hr; Site: ha1 right antecubital; 19:27 Drug: Piperacillin-Tazobactam IVPB 3.375 grams IVPB once over 60 mins; (mix in NS 100 ha1 mL) Route: IVPB; Infused Over: 60 mins; Site: right antecubital; 21:30 Follow up: Response: No adverse reaction; IV Status: Completed infusion; IV Intake: ha1 100ml 19:28 Drug: NS 0.9% IV 500 ml IV at bolus once Route: IV; Rate: bolus; Site: right ha1 antecubital; 21:32 Follow up: IV Status: Completed infusion; IV Intake: 500ml ha1 20:38 Drug: Famotidine IVP 20 mg IVP once; dilute with 10 mL 0.9% NaCl; give over 2 minutes ha1 Route: IVP; Site: right antecubital; 21:20 Follow up: Response: No adverse reaction; Marked relief of symptoms ha1 21:13 Drug: fentaNYL (PF) IVP 25 mcg IVP once Route: IVP; Site: right antecubital; ha1 Disposition Summary: 08/08/23 19:40 Transfer Ordered Notes: Transfer Location: [place] 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
--- NOTE | 2023-08-08 19:45 | RAD REPORT ---
EXAM DESCRIPTION: US - Abdomen Exam Limited - 08/08/2023 7:36 pm CLINICAL HISTORY: ABD PAIN COMPARISON: Angio Aorta For Dissection dated 08/08/2023 FINDINGS: Similar intra and extrahepatic biliary duct dilatation. The common bile duct measures 1.7 cm. Cholecystectomy. No focal liver lesion. IMPRESSION: Intra and extrahepatic biliary duct dilatation. Though not evident by the submitted ultr asound images, numerous common bile duct and common hepatic duct stones are present.
[2023-08-08 20:58] LABS: Renal Epithelial <5 /HPF (None Seen); Sqamous Epithelial <5 /HPF (None Seen); Urine Bacteria None Seen /HPF (<20); Urine Bilirubin NEGATIVE (Negative); Urine Blood Negative (Negative); Urine Clarity Clear (Clear); Urine Color Yellow (Yellow); Urine Culture Reflex Order NOT NEEDED; Urine Glucose NEGATIVE (Negative); Urine Ketones NEGATIVE (Negative); Urine Microscopic Reflex YN ORDER UMIC; Urine Mucus Slight /HPF (None Seen); Urine Nitrite NEGATIVE (Negative); Urine Protein TRACE (Negative); Urine Urobilinogen 1+ (Normal); Urine WBC <5 /HPF (<5); Urine pH 7.5 (5.0-7.0)
[2023-08-08 21:00] LABS: Specific Gravity > 1.030 (1.005-1.030)
[2023-08-08 21:52] VITALS: TEMP 97.3; O2SAT 98
[2023-08-08 22:19] VITALS: BP 133/54
--- NOTE | 2023-08-10 14:20 | EKG ---
Test Date: 2023-08-08 Test Time: 16:27:36 Relief Docking Master: PH MEASUREMENT RESULTS: Intervals: Rate: 85 UT: 236 QRSD: 84 QT: 384 QTc: 456 [place]: P: 19 UT: 236 QRS: 5 T: 59 INTERPRETIVE STATEMENTS: Sinus rhythm with 1st degree AV block Otherwise normal ECG Compared to ECG 07/01/2023 15:38:47 T-wave abnormality no longer present Electronically Signed On 08-10-23 14:14:49 CDT by Mario Hoskins
== END ==
LOC: ER 16:18
DX: K83.1 Obstruction of bile duct (principal); D64.9 Anemia, unspecified; R07.9 Chest pain, unspecified; Z79.01 Long term (current) use of anticoagulants; Z95.0 Presence of cardiac pacemaker; I10 Essential (primary) hypertension; I50.9 Heart failure, unspecified; Z86.73 Personal history of transient ischemic attack (TIA), and cerebral infarction without residual deficits; Z88.5 Allergy status to narcotic agent; Z88.7 Allergy status to serum and vaccine; Z88.8 Allergy status to other drugs, medicaments and biological substances; Z91.048 Other nonmedicinal substance allergy status
CPT/HCPCS: 93005; 85025; 81001; 80048; 36415; 83735; 85610; 80076; 84484; 83690; 83880; 71275; 74175; 71045; 76705; 99285; Q9967; J2543; J3010 ×2; J2405; J7030